=== PATIENT | female | born 1990 | race Caucasian/White ===

== ENCOUNTER 2022-02-13 22:44 | Inpatient (IN) | payer OTHER, MEDICAID, SELFPAY ==
[2022-02-13] VITALS (10 sets, daily range): BP systolic 87–98; BP diastolic 59–69; PULSE 106–120; RESP 23–36; O2SAT 79–100
--- NOTE | 2022-02-13 22:54 | DI.RAD.S_ITS ---
PROCEDURE: XR CHEST 1V INDICATIONS: unresponsive TECHNIQUE: One view of the chest was acquired. COMPARISON: None. FINDINGS: Surgical changes and devices: None. Lungs and pleura: Lungs are clear. No pleural effusions or pneumothorax. Mediastinum: Mediastinal contours appear normal. Heart size is normal. Bones and chest wall: No suspicious bony lesions. Overlying soft tissues appear unremarkable. IMPRESSION: 1. No acute cardiopulmonary disease. Dictated by: Romain Walton M.D. on 02/13/2022 at 23:57 Approved by: Romain Walton M.D. on 02/13/2022 at 23:57
--- NOTE | 2022-02-13 22:54 | DI.CT.S_ITS ---
PROCEDURE: CT HEAD/BRAIN WO CON INDICATIONS: unresponsive TECHNIQUE: Noncontrast 4.5 mm thick angled axial sections acquired from the foramen magnum to the vertex, with coronal and sagittal reformats. For radiation dose reduction, the following was used: automated exposure control, adjustment of mA and/or kV according to patient size. COMPARISON: None. FINDINGS: Image quality: Excellent. CSF spaces: Basal cisterns are patent. No extra-axial fluid collections. Ventricles are normal in size and shape. Brain: No intracranial hemorrhage, mass, or mass effect. Rodriguez-white matter interface appears preserved. Skull and face: Calvarium and visualized facial bones are intact, without suspicious lesions. Sinuses: Visualized sinuses and mastoids are clear. IMPRESSION: 1. No acute intracranial abnormality. Dictated by: Romain Walton M.D. on 02/13/2022 at 23:23 Approved by: Romain Walton M.D. on 02/13/2022 at 23:24
[2022-02-13 23:13] LABS: Ammonia (NH3) < 9 umol/L (9-30)
[2022-02-13] MEDS: SODIUM CHLORIDE 0.9% 1,000 ML 1000 ML IV (23:25)
[2022-02-13 23:27] LABS: Alanine Aminotransferase 21 IU/L (<35); Albumin 4.9 g/dL (3.5-5.0); Albumin Globulin Ratio 1.8 (1.0-2.8); Alkaline Phosphatase 125 U/L (38-126); Aspartate Aminotransferase 21 IU/L (14-36); Bilirubin Total 1.1 mg/dL (0.2-1.3); Calcium 9.4 mg/dL (8.4-10.2); Carbon Dioxide 19 mmol/L (22-32); Chloride 77 mmol/L (98-107); Creatine Kinase 247 U/L (30-135); Globulin 2.7 g/dL (1.7-4.1); Lipase 797 U/L (23-300); Potassium 2.8 mmol/L (3.4-5.1); Sodium 127 mmol/L (137-145); Total Protein 7.6 g/dL (6.3-8.2)
[2022-02-13 23:29] LABS: Add Manual Diff / Slide Review NO; Basophils Absolute Auto 0 /uL (0-100); Basophils Percent Auto 0.1 % (0-2); Eosinophils Absolute Auto 0 /uL (0-450); Eosinophils Percent Auto 0.1 % (2-4); Hemoglobin 17.3 g/dL (12.0-16.0); Lymphocytes Absolute Auto 700 /uL (1100-4500); Lymphocytes Percent Auto 3.7 % (25-40); Mean Corpuscular Hemoglobin 29.3 PG (26-34); Mean Corpuscular Volume 104.7 fL (80-100); Monocytes Absolute Auto 1200 /uL (0-900); Monocytes Percent Auto 6.6 % (3-14); Neutrophils Absolute Auto 16500 /uL (1500-7000); Neutrophils Percent Auto 89.5 % (50-75); Platelet Count 251 X10^3/uL (150-400); Red Blood Cell Count 5.89 X10^6/uL (4.0-5.2); Red Cell Distribution Width 15.2 % (11.6-14.8); White Blood Cell Count 18.4 X10^3/uL (4.5-11.0)
[2022-02-13 23:30] LABS: Ketones (Beta-Hydroxybutyrate) 7.83 mmol/L (<0.27)
[2022-02-13 23:33] LABS: BUN Creatinine Ratio 28.6 (6-22); Estimated Glomerular Filt Rate 14 mL/min (>60)
[2022-02-13 23:35] LABS: HEMOLYSIS 30 (0-50)
--- NOTE | 2022-02-13 23:36 | ED_ITS ---
HPI - General Adult <Dionne Rubio DO - Last Filed: 02/14/22 23:26> General Chief complaint: Diabetic Problem Stated complaint: Abd. Pain, lethargic Time Seen by Provider: 02/13/22 22:52 Source: patient Mode of arrival: EMS History of Present Illness HPI narrative: Patient is a 31-year-old female history of insulin-dependent diabetes diagnosed with diabetes in 2013 after some pancreatic issues. Was found with decreased responsiveness today. Mom states that she went patying 5 nights ago. Since then she has felt nauseous. The only thing she has been able to keep down are 12/03 slurpees. She has had a decline but was really not responsive today. EMS found her to be hypotensive minimally responsive. POC glucose is greater than 500. Mom reports that she was throwing up and has gotten worse. Her mouth is noted to be quite red his but does not appear to be blood I see no tongue or injury. Read and mouth is actually from the [place] Related Data Home Medications Medication Instructions Recorded Confirmed No Known Home Medications 02/14/22 02/14/22 Allergies Allergy/AdvReac Type Severity Reaction Status Date / Time No Known Drug Allergies Allergy Verified 02/13/22 22:53 Review of Systems <Dionne Rubio DO - Last Filed: 02/14/22 23:26> Review of Systems ROS Unobtainable: Unobtainable due to medical condition Patient History <Dionne Rubio DO - Last Filed: 02/14/22 23:26> Social History household members: family Smoking Status: Never smoker alcohol intake: current Smoking Status: Never smoker alcohol intake frequency: holidays/special occasions only Substance Use Type: marijuana Exam <Dionne Rubio DO - Last Filed: 02/14/22 23:26> Initial Vital Signs Initial Vital Signs: Vital Signs Pulse Rate 120 H 02/13/22 22:49 Respiratory Rate 23 02/13/22 22:49 Pulse Oximetry 79 L 02/13/22 22:49 Gen.: Minimally responsive HEENT: Head is atraumatic mouth is covered with red like stuff does not appear to be blood no mouth injury Neck: Supple no JVD Lungs: Clear bilaterally Cardiac: Tachycardic regular Abdomen: Nontender Extremities: Moving all extremities no gross bony deformity Neurologic: + gag, moving all extremities not following commands <Kev Yost MD - Last Filed: 02/14/22 16:47> Initial Vital Signs Initial Vital Signs: Vital Signs Pulse Rate 120 H 02/13/22 22:49 Respiratory Rate 23 02/13/22 22:49 Pulse Oximetry 79 L 02/13/22 22:49 Procedures <Dionne Rubio DO - Last Filed: 02/14/22 23:26> Central Line Placement Right IJ: Patient Placed on Monitor/Pulse Ox: Yes Prep: mask, gown and gloves Central Line Prep: Chlorhexidine scrub and sterile drapes applied Local Anesthetic: lidocaine 1% Amount of anesthesia used (mL): 5 Ultrasound Used for Placement: Yes Post Procedure X-Ray: tip of catheter in good position and no pneumothorax seen Patient Tolerated Procedure: Well and No complications Additional Comments: Unsuccessful attempt at right IJ. It collapsed many times Right Femoral: Patient Placed on Monitor/Pulse Ox: Yes Prep: mask, gown and gloves Central Line Prep: Chlorhexidine scrub and sterile drapes applied Ultrasound Used for Placement: Yes Central Line Lumen Inserted: triple Post Procedure: sutured in place, good blood return, all ports aspirated, flushed, capped and sterile dressing applied Course <DO Neri Means Last Filed: 02/14/22 23:26> Orders Ordered: ED Orders 02/14/22 16:08 Basic Metabolic Panel Q4H Discontinued Medications Acetaminophen (Acetaminophen 325 Mg Tablet) 650 mg PO Q6HR PRN PRN Reason: Fever/Mild Pain (1-3) Sodium Chloride (Normal Saline 0.9%) 1,000 mls @ 1,000 mls/hr IV BOLUS ONE Stop: 02/13/22 23:51 Last Infusion: 02/14/22 02:04 Dose: 0 mls/hr Documented By: Admin: 02/13/22 23:25 Dose: 1,000 mls/hr Documented By: NR Potassium Chloride/Sodium Chloride (Ns With Kcl 20 Meq) 1,000 mls @ 150 mls/hr IV CONT OG Last Infusion: 02/14/22 02:12 Dose: 0 mls/hr Documented By: Admin: 02/14/22 00:38 Dose: 150 mls/hr Documented By: NR Insulin Human Regular 100 unit (/ Sodium Chloride) 100 mls @ 6 mls/hr IV TITRATE OG; Protocol Last Titration: 02/14/22 15:43 Dose: 9.7 ml/hr, 9.7 mls/hr Documented By: Co-signed By: CW Titration: 02/14/22 13:55 Dose: 0 mls/hr Documented By: Co-signed By: CW Titration: 02/14/22 13:30 Dose: 9.7 mls/hr Documented By: Co-signed By: CW Titration: 02/14/22 05:52 Dose: 0 mls/hr Documented By: JAMAR Co-signed By: ELLE Titration: 02/14/22 03:03 Dose: 6 mls/hr Documented By: ABIMBOLA Co-signed By: JAMAR Titration: 02/14/22 02:00 Dose: 6 mls/hr Documented By: ABIMBOLA Co-signed By: ARAMIS Admin: 02/14/22 00:35 Dose: 6 ml/hr, 6 mls/hr Documented By: ABIMBOLA Co-signed By: ARAMIS NOREPINEPHRINE BITARTRATE/D5W (Levophed) 4 mg in 250 mls @ 30 mls/hr IV TITRATE OG; Protocol Last Titration: 02/14/22 19:45 Dose: 20 mcg/min, 75 mls/hr Documented By: Admin: 02/14/22 18:00 Dose: 12 mcg/min, 45 mls/hr Documented By: Titration: 02/14/22 17:24 Dose: 12 mcg/min, 45 mls/hr Documented By: Titration: 02/14/22 17:16 Dose: 12 mcg/min, 45 mls/hr Documented By: Titration: 02/14/22 14:44 Dose: 10 mcg/min, 37.5 mls/hr Documented By: Titration: 02/14/22 13:34 Dose: 12 mcg/min, 45 mls/hr Documented By: Titration: 02/14/22 12:37 Dose: 10 mcg/min, 37.5 mls/hr Documented By: Admin: 02/14/22 10:59 Dose: 10 mcg/min, 37.5 mls/hr Documented By: JAnnetta Titration: 02/14/22 10:59 Dose: 10 mcg/min, 37.5 mls/hr Documented By: Titration: 02/14/22 08:15 Dose: 10 mcg/min, 37.5 mls/hr Documented By: GenovevaG Titration: 02/14/22 07:38 Dose: 8 mcg/min, 30 mls/hr Documented By: Titration: 02/14/22 07:20 Dose: 6 mcg/min, 22.5 mls/hr Documented By: Titration: 02/14/22 07:10 Dose: 4 mcg/min, 15 mls/hr Documented By: Titration: 02/14/22 06:01 Dose: 0 mcg/min, 0 mls/hr Documented By: Titration: 02/14/22 04:30 Dose: 4 mcg/min, 15 mls/hr Documented By: Admin: 02/14/22 01:45 Dose: 8 mcg/min, 30 mls/hr Documented By: NR POTASSIUM CHLORIDE IN WATER (Potassium Cl 10 Meq/100 Ml [place]) 10 meq in 100 mls @ 100 mls/hr IV Q1H OG Stop: 02/14/22 05:29 Last Infusion: 02/14/22 06:16 Dose: 0 mls/hr Documented By: Admin: 02/14/22 04:57 Dose: 100 mls/hr Documented By: DKMarysol Infusion: 02/14/22 04:52 Dose: 100 mls/hr Documented By: Admin: 02/14/22 03:52 Dose: 100 mls/hr Documented By: Infusion: 02/14/22 03:52 Dose: 100 mls/hr Documented By: Admin: 02/14/22 02:55 Dose: 100 mls/hr Documented By: Infusion: 02/14/22 02:52 Dose: 100 mls/hr Documented By: Admin: 02/14/22 01:52 Dose: 100 mls/hr Documented By: NR Sodium Chloride (Normal Saline 0.9%) 1,000 mls @ 150 mls/hr IV CONT OG Last Infusion: 02/14/22 09:28 Dose: 0 mls/hr Documented By: Admin: 02/14/22 02:09 Dose: 150 mls/hr Documented By: NR Lactated Ringer's (Lactated Ringers) 1,000 mls @ 200 mls/hr IV BOLUS ONE Stop: 02/14/22 06:59 Last Infusion: 02/14/22 07:14 Dose: 0 mls/hr Documented By: Admin: 02/14/22 02:05 Dose: 200 mls/hr Documented By: ABIMBOLA POTASSIUM CHLORIDE IN WATER (Potassium Cl 10 Meq/100 Ml [place]) 10 meq in 100 mls @ 100 mls/hr IV Q1H OG Stop: 02/14/22 10:14 Last Infusion: 02/14/22 10:57 Dose: 0 mls/hr Documented By: Admin: 02/14/22 09:54 Dose: 100 mls/hr Documented By: Infusion: 02/14/22 09:52 Dose: 0 mls/hr Documented By: Admin: 02/14/22 08:37 Dose: 100 mls/hr Documented By: Infusion: 02/14/22 08:35 Dose: 0 mls/hr Documented By: Admin: 02/14/22 07:18 Dose: 100 mls/hr Documented By: Infusion: 02/14/22 07:06 Dose: 100 mls/hr Documented By: Admin: 02/14/22 06:06 Dose: 100 mls/hr Documented By: JAMAR Lactated Ringer's (Lactated Ringers) 1,000 mls @ 200 mls/hr IV CONT OG Last Infusion: 02/14/22 12:28 Dose: 0 mls/hr Documented By: Admin: 02/14/22 07:15 Dose: 200 mls/hr Documented By: JAMAR Ceftriaxone Sodium 1,000 mg/ (Sodium Chloride) 100 mls @ 200 mls/hr IV Q24H OG Piperacillin Sod/Tazobactam (Sod 3.375 gm/ Sodium Chloride) 100 mls @ 25 mls/hr IV Q8H OG Last Infusion: 02/14/22 14:45 Dose: 0 mls/hr Documented By: Infusion: 02/14/22 12:38 Dose: 25 mls/hr Documented By: Admin: 02/14/22 10:26 Dose: 25 mls/hr Documented By: QUIRINO Lactated Ringer's (Lactated Ringers) 1,000 mls @ 1,000 mls/hr IV BOLUS ONE Stop: 02/14/22 11:39 Last Infusion: 02/14/22 12:37 Dose: 1,000 mls/hr Documented By: Admin: 02/14/22 11:30 Dose: 1,000 mls/hr Documented By: QUIRINO Lactated Ringer's (Lactated Ringers) 1,000 mls @ 1,000 mls/hr IV BOLUS ONE Stop: 02/14/22 14:06 Last Infusion: 02/14/22 14:46 Dose: 0 mls/hr Documented By: Admin: 02/14/22 13:53 Dose: 1,000 mls/hr Documented By: Lactated Ringer's (Lactated Ringers) 1,000 mls @ 1,000 mls/hr IV BOLUS ONE Stop: 02/14/22 14:10 Last Admin: 02/14/22 13:53 Dose: 1,000 mls/hr Documented By: INSULIN DRIP PREMIX (Myxredlin Drip Premix) 100 unit in 100 mls @ 6 mls/hr IV NOW ONE; Protocol Stop: 02/15/22 06:08 Last Titration: 02/14/22 15:42 Dose: 9.7 units/hr, 9.7 mls/hr Documented By: Co-signed By: ASHLY Titration: 02/14/22 13:32 Dose: 9.7 units/hr, 9.7 mls/hr Documented By: Co-signed By: MARY JO Admin: 02/14/22 13:31 Dose: 6 units/hr, 6 mls/hr Documented By: Co-signed By: MARY JO Cefepime HCl 2 gm/ Sodium (Chloride) 100 mls @ 200 mls/hr IV Q8H [facility] Last Infusion: 02/14/22 17:15 Dose: 0 mls/hr Documented By: Admin: 02/14/22 16:18 Dose: 200 mls/hr Documented By: Acyclovir 340 mg/ Dextrose 250 mls @ 250 mls/hr IV Q8H [facility] Last Admin: 02/14/22 17:22 Dose: Not Given Documented By: Dextrose (Dextrose 5% Water) 1,000 mls @ 150 mls/hr IV CONT [facility] Last Admin: 02/14/22 16:34 Dose: 150 mls/hr Documented By: dexmedeTOMIDine in 0.9 % NaCL (Precedex) 400 mcg in 100 mls @ 3.425 mls/hr IV TITRATE OG; Protocol Last Titration: 02/14/22 19:45 Dose: 0 mcg/kg/hr, 0 mls/hr Documented By: Admin: 02/14/22 18:52 Dose: 1 mcg/kg/hr, 17.123 mls/hr Documented By: Titration: 02/14/22 18:52 Dose: 1 mcg/kg/hr, 17.123 mls/hr Documented By: Titration: 02/14/22 18:44 Dose: 1 mcg/kg/hr, 17.123 mls/hr Documented By: Titration: 02/14/22 17:34 Dose: 0.5 mcg/kg/hr, 8.562 mls/hr Documented By: Titration: 02/14/22 17:21 Dose: 0.3 mcg/kg/hr, 5.137 mls/hr Documented By: Admin: 02/14/22 16:17 Dose: 0.2 mcg/kg/hr, 3.425 mls/hr Documented By: Lactated Ringer's (Lactated Ringers) 1,000 mls @ 1,000 mls/hr IV BOLUS ONE Stop: 02/14/22 20:06 Last Admin: 02/14/22 18:20 Dose: 1,000 mls/hr Documented By: Vasopressin 40 unit/ Sodium (Chloride) 102 mls @ 4.5 mls/hr IV CONT OG Last Admin: 02/14/22 19:44 Dose: Not Given Documented By: Ketamine HCl (Ketamine 500 Mg/5 Ml Inj) 140 mg IV NOW ONE Stop: 02/14/22 00:11 Last Admin: 02/14/22 00:44 Dose: 140 mg Documented By: NR Lorazepam (Lorazepam 2 Mg/Ml Inj) 2 mg IV NOW ONE Stop: 02/14/22 00:56 Last Admin: 02/14/22 01:59 Dose: 2 mg Documented By: NR Vancomycin HCl (Vancomycin Per Pharmacy) 1 request MISC NOW ONE Stop: 02/14/22 15:29 Last Admin: 02/14/22 17:49 Dose: Not Given Documented By: Vital Signs Vital signs: Vital Signs - 8 hr 02/14/22 08:50 02/14/22 08:50 02/14/22 08:55 Pulse Rate 135 H Respiratory Rate 44 H Blood Pressure 92/51 L 93/52 L Pulse Oximetry 95 Oxygen Delivery Method 02/14/22 08:55 02/14/22 09:00 02/14/22 09:01 Pulse Rate 137 H 135 H Respiratory Rate 47 H 43 H Blood Pressure 93/59 L Pulse Oximetry 96 97 Oxygen Delivery Method 02/14/22 09:01 02/14/22 09:05 02/14/22 09:05 Pulse Rate 137 H 137 H Respiratory Rate 41 H 47 H Blood Pressure 93/58 L Pulse Oximetry 97 99 Oxygen Delivery Method 02/14/22 09:10 02/14/22 09:10 02/14/22 09:15 Pulse Rate 133 H Respiratory Rate 45 H Blood Pressure 89/57 L 91/59 L Pulse Oximetry 98 Oxygen Delivery Method 02/14/22 09:15 02/14/22 09:20 02/14/22 09:20 Pulse Rate 137 H 136 H Respiratory Rate 38 H 45 H Blood Pressure 93/61 Pulse Oximetry 97 97 Oxygen Delivery Method Room Air 02/14/22 09:25 02/14/22 09:25 02/14/22 09:30 Pulse Rate 135 H Respiratory Rate 47 H Blood Pressure 92/57 L 96/60 Pulse Oximetry 97 Oxygen Delivery Method 02/14/22 09:30 02/14/22 09:35 02/14/22 09:35 Pulse Rate 135 H 135 H Respiratory Rate 44 H 45 H Blood Pressure 93/55 L Pulse Oximetry 97 97 Oxygen Delivery Method 02/14/22 09:40 02/14/22 09:40 02/14/22 09:45 Pulse Rate 137 H Respiratory Rate 49 H Blood Pressure 94/59 L 95/61 Pulse Oximetry 97 Oxygen Delivery Method 02/14/22 09:45 02/14/22 09:50 02/14/22 09:50 Pulse Rate 136 H 138 H Respiratory Rate 45 H 43 H Blood Pressure 89/55 L Pulse Oximetry 97 97 Oxygen Delivery Method 02/14/22 09:55 02/14/22 09:55 02/14/22 10:00 Pulse Rate 135 H Respiratory Rate 45 H Blood Pressure 92/50 L 98/52 L Pulse Oximetry 96 Oxygen Delivery Method 02/14/22 10:00 02/14/22 10:05 02/14/22 10:05 Pulse Rate 135 H 135 H Respiratory Rate 44 H 45 H Blood Pressure 97/50 L Pulse Oximetry 96 97 Oxygen Delivery Method Room Air 02/14/22 10:10 02/14/22 10:10 02/14/22 10:15 Pulse Rate 138 H Respiratory Rate 49 H Blood Pressure 103/58 L 96/58 L Pulse Oximetry 97 Oxygen Delivery Method Room Air 02/14/22 10:15 02/14/22 10:20 02/14/22 10:20 Pulse Rate 135 H 135 H Respiratory Rate 46 H 46 H Blood Pressure 93/55 L Pulse Oximetry 97 98 Oxygen Delivery Method 02/14/22 10:25 02/14/22 10:25 02/14/22 10:30 Pulse Rate 137 H Respiratory Rate 46 H Blood Pressure 89/56 L 92/53 L Pulse Oximetry 100 Oxygen Delivery Method 02/14/22 10:30 02/14/22 10:35 02/14/22 10:35 Pulse Rate 140 H 137 H Respiratory Rate 38 H 45 H Blood Pressure 94/52 L Pulse Oximetry 96 99 Oxygen Delivery Method 02/14/22 10:40 02/14/22 10:40 02/14/22 10:45 Pulse Rate 138 H Respiratory Rate 43 H Blood Pressure 96/55 L 99/60 Pulse Oximetry 97 Oxygen Delivery Method 02/14/22 10:45 02/14/22 10:50 02/14/22 10:50 Pulse Rate 136 H 136 H Respiratory Rate 46 H 46 H Blood Pressure 98/61 Pulse Oximetry 97 95 Oxygen Delivery Method 02/14/22 10:55 02/14/22 10:55 02/14/22 11:00 Pulse Rate 135 H Respiratory Rate 43 H Blood Pressure 98/63 98/60 Pulse Oximetry 96 Oxygen Delivery Method 02/14/22 11:00 02/14/22 11:05 02/14/22 11:05 Pulse Rate 135 H 137 H Respiratory Rate 40 H 49 H Blood Pressure 101/61 Pulse Oximetry 95 95 Oxygen Delivery Method Room Air 02/14/22 11:10 02/14/22 11:10 02/14/22 11:15 Pulse Rate 135 H 136 H Respiratory Rate 46 H 42 H Blood Pressure 95/59 L Pulse Oximetry 96 96 Oxygen Delivery Method 02/14/22 11:16 02/14/22 11:16 02/14/22 11:20 Pulse Rate 136 H Respiratory Rate 45 H Blood Pressure 93/54 L 96/57 L Pulse Oximetry 95 Oxygen Delivery Method 02/14/22 11:20 02/14/22 11:25 02/14/22 11:25 Pulse Rate 134 H 137 H Respiratory Rate 45 H 44 H Blood Pressure 105/62 Pulse Oximetry 96 100 Oxygen Delivery Method 02/14/22 11:30 02/14/22 11:30 02/14/22 11:35 Pulse Rate 139 H Respiratory Rate 47 H Blood Pressure 102/59 L 97/55 L Pulse Oximetry 95 Oxygen Delivery Method 02/14/22 11:35 02/14/22 11:40 02/14/22 11:40 Pulse Rate 137 H 136 H Respiratory Rate 45 H 45 H Blood Pressure 91/55 L Pulse Oximetry 97 97 Oxygen Delivery Method 02/14/22 11:46 02/14/22 11:49 02/14/22 11:49 Pulse Rate 138 H 133 H Respiratory Rate 46 H Blood Pressure 97/57 L Pulse Oximetry 97 Oxygen Delivery Method 02/14/22 11:50 02/14/22 11:55 02/14/22 12:00 Pulse Rate 136 H 135 H 136 H Respiratory Rate 43 H 43 H 45 H Blood Pressure Pulse Oximetry 96 96 95 Oxygen Delivery Method 02/14/22 12:05 02/14/22 12:10 Pulse Rate 137 H 135 H Respiratory Rate 47 H 27 H Blood Pressure Pulse Oximetry 96 96 Oxygen Delivery Method <Kev Yost MD - Last Filed: 02/14/22 16:47> Course Course Narrative: February 14, 2022 at 7:00 a.m.. Sign out from Dr Rubio, patient hypotensive DKA, at this time has been off and on insulin drip and off and on with vasopressors. Lactated Ringer's bolus is being given for DKA protocol. At this time no beds available. No ICU beds here available. Hospitalist here has been contacted to help for medical management Decision to Admit Date: 02/14/22 Decision to Admit time: 12:01 Orders Ordered: ED Orders 02/14/22 16:08 Basic Metabolic Panel Q4H Discontinued Medications Acetaminophen (Acetaminophen 325 Mg Tablet) 650 mg PO Q6HR PRN PRN Reason: Fever/Mild Pain (1-3) Sodium Chloride (Normal Saline 0.9%) 1,000 mls @ 1,000 mls/hr IV BOLUS ONE Stop: 02/13/22 23:51 Last Infusion: 02/14/22 02:04 Dose: 0 mls/hr Documented By: Admin: 02/13/22 23:25 Dose: 1,000 mls/hr Documented By: NR Potassium Chloride/Sodium Chloride (Ns With Kcl 20 Meq) 1,000 mls @ 150 mls/hr IV CONT OG Last Infusion: 02/14/22 02:12 Dose: 0 mls/hr Documented By: Admin: 02/14/22 00:38 Dose: 150 mls/hr Documented By: NR Insulin Human Regular 100 unit (/ Sodium Chloride) 100 mls @ 6 mls/hr IV TITRATE OG; Protocol Last Titration: 02/14/22 15:43 Dose: 9.7 ml/hr, 9.7 mls/hr Documented By: Co-signed By: CW Titration: 02/14/22 13:55 Dose: 0 mls/hr Documented By: Co-signed By: CW Titration: 02/14/22 13:30 Dose: 9.7 mls/hr Documented By: Co-signed By: CW Titration: 02/14/22 05:52 Dose: 0 mls/hr Documented By: JAMAR Co-signed By: ELLE Titration: 02/14/22 03:03 Dose: 6 mls/hr Documented By: NR Co-signed By: JAMAR Titration: 02/14/22 02:00 Dose: 6 mls/hr Documented By: ABIMBOLA Co-signed By: ARAMIS Admin: 02/14/22 00:35 Dose: 6 ml/hr, 6 mls/hr Documented By: ABIMBOLA Co-signed By: ARAMIS NOREPINEPHRINE BITARTRATE/D5W (Levophed) 4 mg in 250 mls @ 30 mls/hr IV TITRATE OG; Protocol Last Titration: 02/14/22 19:45 Dose: 20 mcg/min, 75 mls/hr Documented By: Admin: 02/14/22 18:00 Dose: 12 mcg/min, 45 mls/hr Documented By: Titration: 02/14/22 17:24 Dose: 12 mcg/min, 45 mls/hr Documented By: Titration: 02/14/22 17:16 Dose: 12 mcg/min, 45 mls/hr Documented By: Titration: 02/14/22 14:44 Dose: 10 mcg/min, 37.5 mls/hr Documented By: Titration: 02/14/22 13:34 Dose: 12 mcg/min, 45 mls/hr Documented By: Titration: 02/14/22 12:37 Dose: 10 mcg/min, 37.5 mls/hr Documented By: Admin: 02/14/22 10:59 Dose: 10 mcg/min, 37.5 mls/hr Documented By: Titration: 02/14/22 10:59 Dose: 10 mcg/min, 37.5 mls/hr Documented By: Titration: 02/14/22 08:15 Dose: 10 mcg/min, 37.5 mls/hr Documented By: Titration: 02/14/22 07:38 Dose: 8 mcg/min, 30 mls/hr Documented By: Titration: 02/14/22 07:20 Dose: 6 mcg/min, 22.5 mls/hr Documented By: Titration: 02/14/22 07:10 Dose: 4 mcg/min, 15 mls/hr Documented By: Titration: 02/14/22 06:01 Dose: 0 mcg/min, 0 mls/hr Documented By: Titration: 02/14/22 04:30 Dose: 4 mcg/min, 15 mls/hr Documented By: Admin: 02/14/22 01:45 Dose: 8 mcg/min, 30 mls/hr Documented By: NR POTASSIUM CHLORIDE IN WATER (Potassium Cl 10 Meq/100 Ml [place]) 10 meq in 100 mls @ 100 mls/hr IV Q1H OG Stop: 02/14/22 05:29 Last Infusion: 02/14/22 06:16 Dose: 0 mls/hr Documented By: Admin: 02/14/22 04:57 Dose: 100 mls/hr Documented By: DKMarysol Infusion: 02/14/22 04:52 Dose: 100 mls/hr Documented By: DKMarysol Admin: 02/14/22 03:52 Dose: 100 mls/hr Documented By: DKMarysol Infusion: 02/14/22 03:52 Dose: 100 mls/hr Documented By: Admin: 02/14/22 02:55 Dose: 100 mls/hr Documented By: Infusion: 02/14/22 02:52 Dose: 100 mls/hr Documented By: Admin: 02/14/22 01:52 Dose: 100 mls/hr Documented By: ABIMBOLA Sodium Chloride (Normal Saline 0.9%) 1,000 mls @ 150 mls/hr IV CONT OG Last Infusion: 02/14/22 09:28 Dose: 0 mls/hr Documented By: Admin: 02/14/22 02:09 Dose: 150 mls/hr Documented By: ABIMBOLA Lactated Ringer's (Lactated Ringers) 1,000 mls @ 200 mls/hr IV BOLUS ONE Stop: 02/14/22 06:59 Last Infusion: 02/14/22 07:14 Dose: 0 mls/hr Documented By: Admin: 02/14/22 02:05 Dose: 200 mls/hr Documented By: ABIMBOLA POTASSIUM CHLORIDE IN WATER (Potassium Cl 10 Meq/100 Ml [place]) 10 meq in 100 mls @ 100 mls/hr IV Q1H OG Stop: 02/14/22 10:14 Last Infusion: 02/14/22 10:57 Dose: 0 mls/hr Documented By: Admin: 02/14/22 09:54 Dose: 100 mls/hr Documented By: Infusion: 02/14/22 09:52 Dose: 0 mls/hr Documented By: Admin: 02/14/22 08:37 Dose: 100 mls/hr Documented By: Infusion: 02/14/22 08:35 Dose: 0 mls/hr Documented By: Admin: 02/14/22 07:18 Dose: 100 mls/hr Documented By: Infusion: 02/14/22 07:06 Dose: 100 mls/hr Documented By: Admin: 02/14/22 06:06 Dose: 100 mls/hr Documented By: JAMAR Lactated Ringer's (Lactated Ringers) 1,000 mls @ 200 mls/hr IV CONT OG Last Infusion: 02/14/22 12:28 Dose: 0 mls/hr Documented By: Admin: 02/14/22 07:15 Dose: 200 mls/hr Documented By: JAMAR Ceftriaxone Sodium 1,000 mg/ (Sodium Chloride) 100 mls @ 200 mls/hr IV Q24H OG Piperacillin Sod/Tazobactam (Sod 3.375 gm/ Sodium Chloride) 100 mls @ 25 mls/hr IV Q8H OG Last Infusion: 02/14/22 14:45 Dose: 0 mls/hr Documented By: Infusion: 02/14/22 12:38 Dose: 25 mls/hr Documented By: Admin: 02/14/22 10:26 Dose: 25 mls/hr Documented By: QUIRINO Lactated Ringer's (Lactated Ringers) 1,000 mls @ 1,000 mls/hr IV BOLUS ONE Stop: 02/14/22 11:39 Last Infusion: 02/14/22 12:37 Dose: 1,000 mls/hr Documented By: Admin: 02/14/22 11:30 Dose: 1,000 mls/hr Documented By: QUIRINO Lactated Ringer's (Lactated Ringers) 1,000 mls @ 1,000 mls/hr IV BOLUS ONE Stop: 02/14/22 14:06 Last Infusion: 02/14/22 14:46 Dose: 0 mls/hr Documented By: Admin: 02/14/22 13:53 Dose: 1,000 mls/hr Documented By: Lactated Ringer's (Lactated Ringers) 1,000 mls @ 1,000 mls/hr IV BOLUS ONE Stop: 02/14/22 14:10 Last Admin: 02/14/22 13:53 Dose: 1,000 mls/hr Documented By: INSULIN DRIP PREMIX (Myxredlin Drip Premix) 100 unit in 100 mls @ 6 mls/hr IV NOW ONE; Protocol Stop: 02/15/22 06:08 Last Titration: 02/14/22 15:42 Dose: 9.7 units/hr, 9.7 mls/hr Documented By: Co-signed By: ASHLY Titration: 02/14/22 13:32 Dose: 9.7 units/hr, 9.7 mls/hr Documented By: Co-signed By: MARY JO Admin: 02/14/22 13:31 Dose: 6 units/hr, 6 mls/hr Documented By: Co-signed By: MARY JO Cefepime HCl 2 gm/ Sodium (Chloride) 100 mls @ 200 mls/hr IV Q8H OG Last Infusion: 02/14/22 17:15 Dose: 0 mls/hr Documented By: Admin: 02/14/22 16:18 Dose: 200 mls/hr Documented By: MS Acyclovir 340 mg/ Dextrose 250 mls @ 250 mls/hr IV Q8H OG Last Admin: 02/14/22 17:22 Dose: Not Given Documented By: MS Dextrose (Dextrose 5% Water) 1,000 mls @ 150 mls/hr IV CONT OG Last Admin: 02/14/22 16:34 Dose: 150 mls/hr Documented By: MS dexmedeTOMIDine in 0.9 % NaCL (Precedex) 400 mcg in 100 mls @ 3.425 mls/hr IV TITRATE OG; Protocol Last Titration: 02/14/22 19:45 Dose: 0 mcg/kg/hr, 0 mls/hr Documented By: Admin: 02/14/22 18:52 Dose: 1 mcg/kg/hr, 17.123 mls/hr Documented By: Titration: 02/14/22 18:52 Dose: 1 mcg/kg/hr, 17.123 mls/hr Documented By: Titration: 02/14/22 18:44 Dose: 1 mcg/kg/hr, 17.123 mls/hr Documented By: Titration: 02/14/22 17:34 Dose: 0.5 mcg/kg/hr, 8.562 mls/hr Documented By: Titration: 02/14/22 17:21 Dose: 0.3 mcg/kg/hr, 5.137 mls/hr Documented By: Admin: 02/14/22 16:17 Dose: 0.2 mcg/kg/hr, 3.425 mls/hr Documented By: MS Lactated Ringer's (Lactated Ringers) 1,000 mls @ 1,000 mls/hr IV BOLUS ONE Stop: 02/14/22 20:06 Last Admin: 02/14/22 18:20 Dose: 1,000 mls/hr Documented By: MS Vasopressin 40 unit/ Sodium (Chloride) 102 mls @ 4.5 mls/hr IV CONT OG Last Admin: 02/14/22 19:44 Dose: Not Given Documented By: MS Ketamine HCl (Ketamine 500 Mg/5 Ml Inj) 140 mg IV NOW ONE Stop: 02/14/22 00:11 Last Admin: 02/14/22 00:44 Dose: 140 mg Documented By: ABIMBOLA Lorazepam (Lorazepam 2 Mg/Ml Inj) 2 mg IV NOW ONE Stop: 02/14/22 00:56 Last Admin: 02/14/22 01:59 Dose: 2 mg Documented By: ABIMBOLA Vancomycin HCl (Vancomycin Per Pharmacy) 1 request MISC NOW ONE Stop: 02/14/22 15:29 Last Admin: 02/14/22 17:49 Dose: Not Given Documented By: Reevaluation(s) Reevaluation #1: Patient remains on vasopressors and insulin drip and IV hydration. Consultations Consultation #1: Spoke with Dr. Alvarado, hospitalist, will admit to ICU here Time: 12:01 Vital Signs Vital signs: Vital Signs - 8 hr 02/14/22 08:50 02/14/22 08:50 02/14/22 08:55 Pulse Rate 135 H Respiratory Rate 44 H Blood Pressure 92/51 L 93/52 L Pulse Oximetry 95 Oxygen Delivery Method 02/14/22 08:55 02/14/22 09:00 02/14/22 09:01 Pulse Rate 137 H 135 H Respiratory Rate 47 H 43 H Blood Pressure 93/59 L Pulse Oximetry 96 97 Oxygen Delivery Method 02/14/22 09:01 02/14/22 09:05 02/14/22 09:05 Pulse Rate 137 H 137 H Respiratory Rate 41 H 47 H Blood Pressure 93/58 L Pulse Oximetry 97 99 Oxygen Delivery Method 02/14/22 09:10 02/14/22 09:10 02/14/22 09:15 Pulse Rate 133 H Respiratory Rate 45 H Blood Pressure 89/57 L 91/59 L Pulse Oximetry 98 Oxygen Delivery Method 02/14/22 09:15 02/14/22 09:20 02/14/22 09:20 Pulse Rate 137 H 136 H Respiratory Rate 38 H 45 H Blood Pressure 93/61 Pulse Oximetry 97 97 Oxygen Delivery Method Room Air 02/14/22 09:25 02/14/22 09:25 02/14/22 09:30 Pulse Rate 135 H Respiratory Rate 47 H Blood Pressure 92/57 L 96/60 Pulse Oximetry 97 Oxygen Delivery Method 02/14/22 09:30 02/14/22 09:35 02/14/22 09:35 Pulse Rate 135 H 135 H Respiratory Rate 44 H 45 H Blood Pressure 93/55 L Pulse Oximetry 97 97 Oxygen Delivery Method 02/14/22 09:40 02/14/22 09:40 02/14/22 09:45 Pulse Rate 137 H Respiratory Rate 49 H Blood Pressure 94/59 L 95/61 Pulse Oximetry 97 Oxygen Delivery Method 02/14/22 09:45 02/14/22 09:50 02/14/22 09:50 Pulse Rate 136 H 138 H Respiratory Rate 45 H 43 H Blood Pressure 89/55 L Pulse Oximetry 97 97 Oxygen Delivery Method 02/14/22 09:55 02/14/22 09:55 02/14/22 10:00 Pulse Rate 135 H Respiratory Rate 45 H Blood Pressure 92/50 L 98/52 L Pulse Oximetry 96 Oxygen Delivery Method 02/14/22 10:00 02/14/22 10:05 02/14/22 10:05 Pulse Rate 135 H 135 H Respiratory Rate 44 H 45 H Blood Pressure 97/50 L Pulse Oximetry 96 97 Oxygen Delivery Method Room Air 02/14/22 10:10 02/14/22 10:10 02/14/22 10:15 Pulse Rate 138 H Respiratory Rate 49 H Blood Pressure 103/58 L 96/58 L Pulse Oximetry 97 Oxygen Delivery Method Room Air 02/14/22 10:15 02/14/22 10:20 02/14/22 10:20 Pulse Rate 135 H 135 H Respiratory Rate 46 H 46 H Blood Pressure 93/55 L Pulse Oximetry 97 98 Oxygen Delivery Method 02/14/22 10:25 02/14/22 10:25 02/14/22 10:30 Pulse Rate 137 H Respiratory Rate 46 H Blood Pressure 89/56 L 92/53 L Pulse Oximetry 100 Oxygen Delivery Method 02/14/22 10:30 02/14/22 10:35 02/14/22 10:35 Pulse Rate 140 H 137 H Respiratory Rate 38 H 45 H Blood Pressure 94/52 L Pulse Oximetry 96 99 Oxygen Delivery Method 02/14/22 10:40 02/14/22 10:40 02/14/22 10:45 Pulse Rate 138 H Respiratory Rate 43 H Blood Pressure 96/55 L 99/60 Pulse Oximetry 97 Oxygen Delivery Method 02/14/22 10:45 02/14/22 10:50 02/14/22 10:50 Pulse Rate 136 H 136 H Respiratory Rate 46 H 46 H Blood Pressure 98/61 Pulse Oximetry 97 95 Oxygen Delivery Method 02/14/22 10:55 02/14/22 10:55 02/14/22 11:00 Pulse Rate 135 H Respiratory Rate 43 H Blood Pressure 98/63 98/60 Pulse Oximetry 96 Oxygen Delivery Method 02/14/22 11:00 02/14/22 11:05 02/14/22 11:05 Pulse Rate 135 H 137 H Respiratory Rate 40 H 49 H Blood Pressure 101/61 Pulse Oximetry 95 95 Oxygen Delivery Method Room Air 02/14/22 11:10 02/14/22 11:10 02/14/22 11:15 Pulse Rate 135 H 136 H Respiratory Rate 46 H 42 H Blood Pressure 95/59 L Pulse Oximetry 96 96 Oxygen Delivery Method 02/14/22 11:16 02/14/22 11:16 02/14/22 11:20 Pulse Rate 136 H Respiratory Rate 45 H Blood Pressure 93/54 L 96/57 L Pulse Oximetry 95 Oxygen Delivery Method 02/14/22 11:20 02/14/22 11:25 02/14/22 11:25 Pulse Rate 134 H 137 H Respiratory Rate 45 H 44 H Blood Pressure 105/62 Pulse Oximetry 96 100 Oxygen Delivery Method 02/14/22 11:30 02/14/22 11:30 02/14/22 11:35 Pulse Rate 139 H Respiratory Rate 47 H Blood Pressure 102/59 L 97/55 L Pulse Oximetry 95 Oxygen Delivery Method 02/14/22 11:35 02/14/22 11:40 02/14/22 11:40 Pulse Rate 137 H 136 H Respiratory Rate 45 H 45 H Blood Pressure 91/55 L Pulse Oximetry 97 97 Oxygen Delivery Method 02/14/22 11:46 02/14/22 11:49 02/14/22 11:49 Pulse Rate 138 H 133 H Respiratory Rate 46 H Blood Pressure 97/57 L Pulse Oximetry 97 Oxygen Delivery Method 02/14/22 11:50 02/14/22 11:55 02/14/22 12:00 Pulse Rate 136 H 135 H 136 H Respiratory Rate 43 H 43 H 45 H Blood Pressure Pulse Oximetry 96 96 95 Oxygen Delivery Method 02/14/22 12:05 02/14/22 12:10 Pulse Rate 137 H 135 H Respiratory Rate 47 H 27 H Blood Pressure Pulse Oximetry 96 96 Oxygen Delivery Method Medical Decision Making <Dionne Ramiro, DO - Last Filed: 02/14/22 23:26> Lab Data Result diagrams: 02/14/22 11:35 02/14/22 16:08 Labs: Lab Results 02/13/22 02/13/22 02/13/22 Range/Units 22:47 22:47 22:47 WBC 18.4 H (4.5-11.0) X10^3/uL RBC 5.89 H (4.0-5.2) X10^6/uL Hgb 17.3 H (12.0-16.0) g/dL Hct 61.7 H* (36-46) % MCV 104.7 H (80-100) fL MCH 29.3 (26-34) PG MCHC 28.0 L (30-36) % RDW 15.2 H (11.6-14.8) % Plt Count 251 (150-400) X10^3/uL Neut % (Auto) 89.5 H (50-75) % Lymph % (Auto) 3.7 L (25-40) % [place] % (Auto) 6.6 (3-14) % Eos % (Auto) 0.1 L (2-4) % Baso % (Auto) 0.1 (0-2) % Neut # (Auto) 45571 H (6841-0111) /uL Lymph # (Auto) 700 L (5864-1835) /uL [place] # (Auto) 1200 H (0-900) /uL Eos # (Auto) 0 (0-450) /uL Baso # (Auto) 0 (0-100) /uL Total Counted Seg Neutrophils % (38-70) % Band Neutrophils % (3-7) % Lymphocytes % (Manual) (25-45) % Atypical Lymphs % ( - 0) % Monocytes % (Manual) (2-11) % Metamyelocytes % (-0) % Neutrophils # (Manual) (7614-0823) /uL RBC Morphology VBG pH (7.33-7.43) VBG pCO2 (45-50) mmHg VBG pO2 (35-45) mmHg VBG HCO3 (23-28) mmol/L VBG Total CO2 (24-29) mmol/L VBG O2 Saturation (70-75) % VBG Base Excess (0-4) mmol/L Sodium 127 L (137-145) mmol/L Potassium 2.8 L (3.4-5.1) mmol/L Chloride 77 L (98-107) mmol/L Carbon Dioxide 19 L (22-32) mmol/L BUN 116 H* (7-17) mg/dL Creatinine 4.05 H (0.52-1.04) mg/dL Estimated GFR 14 L (>60) mL/min BUN/Creatinine Ratio 28.6 H (6-22) Glucose 2188 H* (70-100) mg/dL Hemoglobin A1c (4.0-6.0) % Lactate (0.7-2.1) mmol/L Calcium 9.4 (8.4-10.2) mg/dL Magnesium (1.6-2.3) mg/dL Total Bilirubin 1.1 (0.2-1.3) mg/dL AST 21 (14-36) IU/L ALT 21 (<35) IU/L Alkaline Phosphatase 125 (38-126) U/L Ammonia < 9 L (9-30) umol/L Total Creatine Kinase 247 H (30-135) U/L CK-MB (CK-2) 1.60 (<2.37) ng/mL CK-MB (CK-2) Rel Index 0.6 L (1.5-5.0) % Troponin I 0.034 (0.01-0.034) ng/mL Total Protein 7.6 (6.3-8.2) g/dL Albumin 4.9 (3.5-5.0) g/dL Globulin 2.7 (1.7-4.1) g/dL Albumin/Globulin Ratio 1.8 (1.0-2.8) Triglycerides (35-150) mg/dL Lipase 797 H (23-300) U/L TSH (0.47-4.68) uIU/mL HCG, Quant mIU/mL Urine Color Urine Appearance Urine pH (4.5-8.0) Ur Specific [place] (1.000-1.035) Urine Protein (Negative) Urine Glucose (UA) (Negative) g/dL Urine Ketones (NEGATIVE) Urine Occult Blood (Negative) Urine Nitrate (Negative) Urine Bilirubin (NEGATIVE) Urine Urobilinogen (0.2) E.U./dL Ur Leukocyte Esterase (NEGATIVE) Urine RBC (0-5/HPF) Urine WBC (0-5/HPF) Ur Squamous Epith Cells (0-5/HPF) Urine Bacteria (None) Ur Culture Indicated? U Opiates 300ng/mL cut (Negative) Ur Oxycodone Screen (Negative) Urine Methadone Screen (Negative) Ur Barbiturates Screen (Negative) U Tricyclic Antidepress (Negative) Ur Phencyclidine Scrn (Negative) Ur Amphetamines Screen (Negative) U Methamphetamines Scrn (Negative) Ur MDMA Scrn (Ecstasy) (Negative) U Benzodiazepines Scrn (Negative) Urine Cocaine Screen (Negative) U Marijuana (THC) Screen (Negative) Ethyl Alcohol < 10 ( - 10) mg/dL Ketones 7.83 H (<0.27) mmol/L SARS-CoV-2 (PCR) (Negative) 02/13/22 02/13/22 02/13/22 Range/Units 22:47 22:53 23:23 WBC (4.5-11.0) X10^3/uL RBC (4.0-5.2) X10^6/uL Hgb (12.0-16.0) g/dL Hct (36-46) % MCV (80-100) fL MCH (26-34) PG MCHC (30-36) % RDW (11.6-14.8) % Plt Count (150-400) X10^3/uL Neut % (Auto) (50-75) % Lymph % (Auto) (25-40) % [place] % (Auto) (3-14) % Eos % (Auto) (2-4) % Baso % (Auto) (0-2) % Neut # (Auto) (1557-5294) /uL Lymph # (Auto) (3752-3023) /uL [place] # (Auto) (0-900) /uL Eos # (Auto) (0-450) /uL Baso # (Auto) (0-100) /uL Total Counted Seg Neutrophils % (38-70) % Band Neutrophils % (3-7) % Lymphocytes % (Manual) (25-45) % Atypical Lymphs % ( - 0) % Monocytes % (Manual) (2-11) % Metamyelocytes % (-0) % Neutrophils # (Manual) (9886-0220) /uL RBC Morphology VBG pH 7.19 L* (7.33-7.43) VBG pCO2 60.5 H (45-50) mmHg VBG pO2 39 (35-45) mmHg VBG HCO3 23 (23-28) mmol/L VBG Total CO2 25 (24-29) mmol/L VBG O2 Saturation 60 L (70-75) % VBG Base Excess -5.0 L (0-4) mmol/L Sodium (137-145) mmol/L Potassium (3.4-5.1) mmol/L Chloride (98-107) mmol/L Carbon Dioxide (22-32) mmol/L BUN (7-17) mg/dL Creatinine (0.52-1.04) mg/dL Estimated GFR (>60) mL/min BUN/Creatinine Ratio (6-22) Glucose (70-100) mg/dL Hemoglobin A1c (4.0-6.0) % Lactate (0.7-2.1) mmol/L Calcium (8.4-10.2) mg/dL Magnesium (1.6-2.3) mg/dL Total Bilirubin (0.2-1.3) mg/dL AST (14-36) IU/L ALT (<35) IU/L Alkaline Phosphatase (38-126) U/L Ammonia (9-30) umol/L Total Creatine Kinase (30-135) U/L CK-MB (CK-2) (<2.37) ng/mL CK-MB (CK-2) Rel Index (1.5-5.0) % Troponin I (0.01-0.034) ng/mL Total Protein (6.3-8.2) g/dL Albumin (3.5-5.0) g/dL Globulin (1.7-4.1) g/dL Albumin/Globulin Ratio (1.0-2.8) Triglycerides (35-150) mg/dL Lipase (23-300) U/L TSH (0.47-4.68) uIU/mL HCG, Quant < 2.4 mIU/mL Urine Color Urine Appearance Urine pH (4.5-8.0) Ur Specific [place] (1.000-1.035) Urine Protein (Negative) Urine Glucose (UA) (Negative) g/dL Urine Ketones (NEGATIVE) Urine Occult Blood (Negative) Urine Nitrate (Negative) Urine Bilirubin (NEGATIVE) Urine Urobilinogen (0.2) E.U./dL Ur Leukocyte Esterase (NEGATIVE) Urine RBC (0-5/HPF) Urine WBC (0-5/HPF) Ur Squamous Epith Cells (0-5/HPF) Urine Bacteria (None) Ur Culture Indicated? U Opiates 300ng/mL cut Negative (Negative) Ur Oxycodone Screen Positive H (Negative) Urine Methadone Screen Negative (Negative) Ur Barbiturates Screen Negative (Negative) U Tricyclic Antidepress Negative (Negative) Ur Phencyclidine Scrn Negative (Negative) Ur Amphetamines Screen Negative (Negative) U Methamphetamines Scrn Negative (Negative) Ur MDMA Scrn (Ecstasy) Negative (Negative) U Benzodiazepines Scrn Negative (Negative) Urine Cocaine Screen Negative (Negative) U Marijuana (THC) Screen Negative (Negative) Ethyl Alcohol ( - 10) mg/dL Ketones (<0.27) mmol/L SARS-CoV-2 (PCR) (Negative) 02/13/22 02/13/22 02/13/22 Range/Units 23:31 23:54 23:54 WBC (4.5-11.0) X10^3/uL RBC (4.0-5.2) X10^6/uL Hgb (12.0-16.0) g/dL Hct (36-46) % MCV (80-100) fL MCH (26-34) PG MCHC (30-36) % RDW (11.6-14.8) % Plt Count (150-400) X10^3/uL Neut % (Auto) (50-75) % Lymph % (Auto) (25-40) % [place] % (Auto) (3-14) % Eos % (Auto) (2-4) % Baso % (Auto) (0-2) % Neut # (Auto) (1488-8489) /uL Lymph # (Auto) (2732-8697) /uL [place] # (Auto) (0-900) /uL Eos # (Auto) (0-450) /uL Baso # (Auto) (0-100) /uL Total Counted Seg Neutrophils % (38-70) % Band Neutrophils % (3-7) % Lymphocytes % (Manual) (25-45) % Atypical Lymphs % ( - 0) % Monocytes % (Manual) (2-11) % Metamyelocytes % (-0) % Neutrophils # (Manual) (4061-3165) /uL RBC Morphology VBG pH (7.33-7.43) VBG pCO2 (45-50) mmHg VBG pO2 (35-45) mmHg VBG HCO3 (23-28) mmol/L VBG Total CO2 (24-29) mmol/L VBG O2 Saturation (70-75) % VBG Base Excess (0-4) mmol/L Sodium 131 L (137-145) mmol/L Potassium 2.8 L (3.4-5.1) mmol/L Chloride 89 L (98-107) mmol/L Carbon Dioxide 16 L (22-32) mmol/L BUN 110 H* (7-17) mg/dL Creatinine 3.75 H (0.52-1.04) mg/dL Estimated GFR 16 L (>60) mL/min BUN/Creatinine Ratio 29.3 H (6-22) Glucose 2082 H* (70-100) mg/dL Hemoglobin A1c (4.0-6.0) % Lactate 1.4 (0.7-2.1) mmol/L Calcium 8.2 L (8.4-10.2) mg/dL Magnesium (1.6-2.3) mg/dL Total Bilirubin (0.2-1.3) mg/dL AST (14-36) IU/L ALT (<35) IU/L Alkaline Phosphatase (38-126) U/L Ammonia (9-30) umol/L Total Creatine Kinase (30-135) U/L CK-MB (CK-2) (<2.37) ng/mL CK-MB (CK-2) Rel Index (1.5-5.0) % Troponin I (0.01-0.034) ng/mL Total Protein (6.3-8.2) g/dL Albumin (3.5-5.0) g/dL Globulin (1.7-4.1) g/dL Albumin/Globulin Ratio (1.0-2.8) Triglycerides (35-150) mg/dL Lipase (23-300) U/L TSH 0.53 (0.47-4.68) uIU/mL HCG, Quant mIU/mL Urine Color Urine Appearance Urine pH (4.5-8.0) Ur Specific [place] (1.000-1.035) Urine Protein (Negative) Urine Glucose (UA) (Negative) g/dL Urine Ketones (NEGATIVE) Urine Occult Blood (Negative) Urine Nitrate (Negative) Urine Bilirubin (NEGATIVE) Urine Urobilinogen (0.2) E.U./dL Ur Leukocyte Esterase (NEGATIVE) Urine RBC (0-5/HPF) Urine WBC (0-5/HPF) Ur Squamous Epith Cells (0-5/HPF) Urine Bacteria (None) Ur Culture Indicated? U Opiates 300ng/mL cut (Negative) Ur Oxycodone Screen (Negative) Urine Methadone Screen (Negative) Ur Barbiturates Screen (Negative) U Tricyclic Antidepress (Negative) Ur Phencyclidine Scrn (Negative) Ur Amphetamines Screen (Negative) U Methamphetamines Scrn (Negative) Ur MDMA Scrn (Ecstasy) (Negative) U Benzodiazepines Scrn (Negative) Urine Cocaine Screen (Negative) U Marijuana (THC) Screen (Negative) Ethyl Alcohol ( - 10) mg/dL Ketones (<0.27) mmol/L SARS-CoV-2 (PCR) (Negative) 02/14/22 02/14/22 02/14/22 Range/Units 01:32 01:32 01:35 WBC (4.5-11.0) X10^3/uL RBC (4.0-5.2) X10^6/uL Hgb (12.0-16.0) g/dL Hct (36-46) % MCV (80-100) fL MCH (26-34) PG MCHC (30-36) % RDW (11.6-14.8) % Plt Count (150-400) X10^3/uL Neut % (Auto) (50-75) % Lymph % (Auto) (25-40) % [place] % (Auto) (3-14) % Eos % (Auto) (2-4) % Baso % (Auto) (0-2) % Neut # (Auto) (5692-9068) /uL Lymph # (Auto) (2406-4489) /uL [place] # (Auto) (0-900) /uL Eos # (Auto) (0-450) /uL Baso # (Auto) (0-100) /uL Total Counted Seg Neutrophils % (38-70) % Band Neutrophils % (3-7) % Lymphocytes % (Manual) (25-45) % Atypical Lymphs % ( - 0) % Monocytes % (Manual) (2-11) % Metamyelocytes % (-0) % Neutrophils # (Manual) (5500-1442) /uL RBC Morphology VBG pH 7.13 L* (7.33-7.43) VBG pCO2 54.6 H (45-50) mmHg VBG pO2 62 H (35-45) mmHg VBG HCO3 18 L (23-28) mmol/L VBG Total CO2 20 L (24-29) mmol/L VBG O2 Saturation 83 H (70-75) % VBG Base Excess -11.0 L (0-4) mmol/L Sodium 136 L (137-145) mmol/L Potassium 3.0 L (3.4-5.1) mmol/L Chloride 94 L (98-107) mmol/L Carbon Dioxide 17 L (22-32) mmol/L BUN 109 H* (7-17) mg/dL Creatinine 3.64 H (0.52-1.04) mg/dL Estimated GFR 16 L (>60) mL/min BUN/Creatinine Ratio 29.9 H (6-22) Glucose 1920 H* (70-100) mg/dL Hemoglobin A1c (4.0-6.0) % Lactate 1.3 (0.7-2.1) mmol/L Calcium 8.0 L (8.4-10.2) mg/dL Magnesium (1.6-2.3) mg/dL Total Bilirubin 0.7 (0.2-1.3) mg/dL AST 17 (14-36) IU/L ALT 18 (<35) IU/L Alkaline Phosphatase 97 (38-126) U/L Ammonia (9-30) umol/L Total Creatine Kinase (30-135) U/L CK-MB (CK-2) (<2.37) ng/mL CK-MB (CK-2) Rel Index (1.5-5.0) % Troponin I (0.01-0.034) ng/mL Total Protein 6.1 L (6.3-8.2) g/dL Albumin 3.9 (3.5-5.0) g/dL Globulin 2.2 (1.7-4.1) g/dL Albumin/Globulin Ratio 1.8 (1.0-2.8) Triglycerides (35-150) mg/dL Lipase (23-300) U/L TSH (0.47-4.68) uIU/mL HCG, Quant mIU/mL Urine Color Urine Appearance Urine pH (4.5-8.0) Ur Specific [place] (1.000-1.035) Urine Protein (Negative) Urine Glucose (UA) (Negative) g/dL Urine Ketones (NEGATIVE) Urine Occult Blood (Negative) Urine Nitrate (Negative) Urine Bilirubin (NEGATIVE) Urine Urobilinogen (0.2) E.U./dL Ur Leukocyte Esterase (NEGATIVE) Urine RBC (0-5/HPF) Urine WBC (0-5/HPF) Ur Squamous Epith Cells (0-5/HPF) Urine Bacteria (None) Ur Culture Indicated? U Opiates 300ng/mL cut (Negative) Ur Oxycodone Screen (Negative) Urine Methadone Screen (Negative) Ur Barbiturates Screen (Negative) U Tricyclic Antidepress (Negative) Ur Phencyclidine Scrn (Negative) Ur Amphetamines Screen (Negative) U Methamphetamines Scrn (Negative) Ur MDMA Scrn (Ecstasy) (Negative) U Benzodiazepines Scrn (Negative) Urine Cocaine Screen (Negative) U Marijuana (THC) Screen (Negative) Ethyl Alcohol ( - 10) mg/dL Ketones (<0.27) mmol/L SARS-CoV-2 (PCR) (Negative) 02/14/22 02/14/22 02/14/22 Range/Units 01:58 05:00 07:33 WBC 18.1 H (4.5-11.0) X10^3/uL RBC 5.51 H (4.0-5.2) X10^6/uL Hgb 15.6 (12.0-16.0) g/dL Hct 49.4 H (36-46) % MCV 89.6 D (80-100) fL MCH 28.3 (26-34) PG MCHC 31.6 D (30-36) % RDW 13.7 (11.6-14.8) % Plt Count 232 (150-400) X10^3/uL Neut % (Auto) Not Reportable (50-75) % Lymph % (Auto) Not Reportable (25-40) % [place] % (Auto) Not Reportable (3-14) % Eos % (Auto) Not Reportable (2-4) % Baso % (Auto) Not Reportable (0-2) % Neut # (Auto) (5627-5791) /uL Lymph # (Auto) Not Reportable (4698-5435) /uL [place] # (Auto) Not Reportable (0-900) /uL Eos # (Auto) (0-450) /uL Baso # (Auto) Not Reportable (0-100) /uL Total Counted 100 Seg Neutrophils % 75.0 H (38-70) % Band Neutrophils % 8.0 H (3-7) % Lymphocytes % (Manual) 9.0 L (25-45) % Atypical Lymphs % 1.0 H ( - 0) % Monocytes % (Manual) 6.0 (2-11) % Metamyelocytes % 1.0 H (-0) % Neutrophils # (Manual) 81837 H (8366-7438) /uL RBC Morphology Normal morphology VBG pH (7.33-7.43) VBG pCO2 (45-50) mmHg VBG pO2 (35-45) mmHg VBG HCO3 (23-28) mmol/L VBG Total CO2 (24-29) mmol/L VBG O2 Saturation (70-75) % VBG Base Excess (0-4) mmol/L Sodium 144 (137-145) mmol/L Potassium 2.8 L (3.4-5.1) mmol/L Chloride 103 (98-107) mmol/L Carbon Dioxide 20 L (22-32) mmol/L BUN 99 H (7-17) mg/dL Creatinine 2.97 H (0.52-1.04) mg/dL Estimated GFR 21 L (>60) mL/min BUN/Creatinine Ratio 33.3 H (6-22) Glucose 1456 H* (70-100) mg/dL Hemoglobin A1c (4.0-6.0) % Lactate (0.7-2.1) mmol/L Calcium 8.7 (8.4-10.2) mg/dL Magnesium (1.6-2.3) mg/dL Total Bilirubin (0.2-1.3) mg/dL AST (14-36) IU/L ALT (<35) IU/L Alkaline Phosphatase (38-126) U/L Ammonia (9-30) umol/L Total Creatine Kinase (30-135) U/L CK-MB (CK-2) (<2.37) ng/mL CK-MB (CK-2) Rel Index (1.5-5.0) % Troponin I (0.01-0.034) ng/mL Total Protein (6.3-8.2) g/dL Albumin (3.5-5.0) g/dL Globulin (1.7-4.1) g/dL Albumin/Globulin Ratio (1.0-2.8) Triglycerides (35-150) mg/dL Lipase (23-300) U/L TSH (0.47-4.68) uIU/mL HCG, Quant mIU/mL Urine Color Urine Appearance Urine pH (4.5-8.0) Ur Specific [place] (1.000-1.035) Urine Protein (Negative) Urine Glucose (UA) (Negative) g/dL Urine Ketones (NEGATIVE) Urine Occult Blood (Negative) Urine Nitrate (Negative) Urine Bilirubin (NEGATIVE) Urine Urobilinogen (0.2) E.U./dL Ur Leukocyte Esterase (NEGATIVE) Urine RBC (0-5/HPF) Urine WBC (0-5/HPF) Ur Squamous Epith Cells (0-5/HPF) Urine Bacteria (None) Ur Culture Indicated? U Opiates 300ng/mL cut (Negative) Ur Oxycodone Screen (Negative) Urine Methadone Screen (Negative) Ur Barbiturates Screen (Negative) U Tricyclic Antidepress (Negative) Ur Phencyclidine Scrn (Negative) Ur Amphetamines Screen (Negative) U Methamphetamines Scrn (Negative) Ur MDMA Scrn (Ecstasy) (Negative) U Benzodiazepines Scrn (Negative) Urine Cocaine Screen (Negative) U Marijuana (THC) Screen (Negative) Ethyl Alcohol ( - 10) mg/dL Ketones (<0.27) mmol/L SARS-CoV-2 (PCR) Negative (Negative) 02/14/22 02/14/22 02/14/22 Range/Units 07:33 07:33 07:33 WBC (4.5-11.0) X10^3/uL RBC (4.0-5.2) X10^6/uL Hgb (12.0-16.0) g/dL Hct (36-46) % MCV (80-100) fL MCH (26-34) PG MCHC (30-36) % RDW (11.6-14.8) % Plt Count (150-400) X10^3/uL Neut % (Auto) (50-75) % Lymph % (Auto) (25-40) % [place] % (Auto) (3-14) % Eos % (Auto) (2-4) % Baso % (Auto) (0-2) % Neut # (Auto) (6809-2118) /uL Lymph # (Auto) (9833-8735) /uL [place] # (Auto) (0-900) /uL Eos # (Auto) (0-450) /uL Baso # (Auto) (0-100) /uL Total Counted Seg Neutrophils % (38-70) % Band Neutrophils % (3-7) % Lymphocytes % (Manual) (25-45) % Atypical Lymphs % ( - 0) % Monocytes % (Manual) (2-11) % Metamyelocytes % (-0) % Neutrophils # (Manual) (2375-1891) /uL RBC Morphology VBG pH (7.33-7.43) VBG pCO2 (45-50) mmHg VBG pO2 (35-45) mmHg VBG HCO3 (23-28) mmol/L VBG Total CO2 (24-29) mmol/L VBG O2 Saturation (70-75) % VBG Base Excess (0-4) mmol/L Sodium 146 H (137-145) mmol/L Potassium 3.3 L (3.4-5.1) mmol/L Chloride 106 (98-107) mmol/L Carbon Dioxide 23 (22-32) mmol/L BUN 102 H (7-17) mg/dL Creatinine 2.83 H (0.52-1.04) mg/dL Estimated GFR 22 L (>60) mL/min BUN/Creatinine Ratio 36.0 H (6-22) Glucose 1200 H* (70-100) mg/dL Hemoglobin A1c 12.3 H (4.0-6.0) % Lactate (0.7-2.1) mmol/L Calcium 8.3 L (8.4-10.2) mg/dL Magnesium 4.0 H (1.6-2.3) mg/dL Total Bilirubin (0.2-1.3) mg/dL AST (14-36) IU/L ALT (<35) IU/L Alkaline Phosphatase (38-126) U/L Ammonia (9-30) umol/L Total Creatine Kinase (30-135) U/L CK-MB (CK-2) (<2.37) ng/mL CK-MB (CK-2) Rel Index (1.5-5.0) % Troponin I (0.01-0.034) ng/mL Total Protein (6.3-8.2) g/dL Albumin (3.5-5.0) g/dL Globulin (1.7-4.1) g/dL Albumin/Globulin Ratio (1.0-2.8) Triglycerides (35-150) mg/dL Lipase (23-300) U/L TSH (0.47-4.68) uIU/mL HCG, Quant mIU/mL Urine Color Urine Appearance Urine pH (4.5-8.0) Ur Specific [place] (1.000-1.035) Urine Protein (Negative) Urine Glucose (UA) (Negative) g/dL Urine Ketones (NEGATIVE) Urine Occult Blood (Negative) Urine Nitrate (Negative) Urine Bilirubin (NEGATIVE) Urine Urobilinogen (0.2) E.U./dL Ur Leukocyte Esterase (NEGATIVE) Urine RBC (0-5/HPF) Urine WBC (0-5/HPF) Ur Squamous Epith Cells (0-5/HPF) Urine Bacteria (None) Ur Culture Indicated? U Opiates 300ng/mL cut (Negative) Ur Oxycodone Screen (Negative) Urine Methadone Screen (Negative) Ur Barbiturates Screen (Negative) U Tricyclic Antidepress (Negative) Ur Phencyclidine Scrn (Negative) Ur Amphetamines Screen (Negative) U Methamphetamines Scrn (Negative) Ur MDMA Scrn (Ecstasy) (Negative) U Benzodiazepines Scrn (Negative) Urine Cocaine Screen (Negative) U Marijuana (THC) Screen (Negative) Ethyl Alcohol ( - 10) mg/dL Ketones (<0.27) mmol/L SARS-CoV-2 (PCR) (Negative) 02/14/22 02/14/22 02/14/22 Range/Units 08:51 11:35 11:35 WBC 19.8 H (4.5-11.0) X10^3/uL RBC 5.28 H (4.0-5.2) X10^6/uL Hgb 15.0 (12.0-16.0) g/dL Hct 46.5 H (36-46) % MCV 88.0 (80-100) fL MCH 28.5 (26-34) PG MCHC 32.3 (30-36) % RDW 13.6 (11.6-14.8) % Plt Count 257 (150-400) X10^3/uL Neut % (Auto) Not Reportable (50-75) % Lymph % (Auto) Not Reportable (25-40) % [place] % (Auto) Not Reportable (3-14) % Eos % (Auto) Not Reportable (2-4) % Baso % (Auto) Not Reportable (0-2) % Neut # (Auto) (4509-1914) /uL Lymph # (Auto) Not Reportable (3964-0846) /uL [place] # (Auto) Not Reportable (0-900) /uL Eos # (Auto) (0-450) /uL Baso # (Auto) Not Reportable (0-100) /uL Total Counted 100 Seg Neutrophils % 81.0 H (38-70) % Band Neutrophils % 9.0 H (3-7) % Lymphocytes % (Manual) 4.0 L (25-45) % Atypical Lymphs % ( - 0) % Monocytes % (Manual) 5.0 (2-11) % Metamyelocytes % 1.0 H (-0) % Neutrophils # (Manual) 24832 H (9527-1852) /uL RBC Morphology Normal morphology VBG pH (7.33-7.43) VBG pCO2 (45-50) mmHg VBG pO2 (35-45) mmHg VBG HCO3 (23-28) mmol/L VBG Total CO2 (24-29) mmol/L VBG O2 Saturation (70-75) % VBG Base Excess (0-4) mmol/L Sodium 145 (137-145) mmol/L Potassium 4.5 D (3.4-5.1) mmol/L Chloride 107 (98-107) mmol/L Carbon Dioxide 19 L (22-32) mmol/L BUN 95 H (7-17) mg/dL Creatinine 2.65 H (0.52-1.04) mg/dL Estimated GFR 24 L (>60) mL/min BUN/Creatinine Ratio 35.8 H (6-22) Glucose 1076 H* (70-100) mg/dL Hemoglobin A1c (4.0-6.0) % Lactate (0.7-2.1) mmol/L Calcium 8.3 L (8.4-10.2) mg/dL Magnesium (1.6-2.3) mg/dL Total Bilirubin (0.2-1.3) mg/dL AST (14-36) IU/L ALT (<35) IU/L Alkaline Phosphatase (38-126) U/L Ammonia (9-30) umol/L Total Creatine Kinase (30-135) U/L CK-MB (CK-2) (<2.37) ng/mL CK-MB (CK-2) Rel Index (1.5-5.0) % Troponin I (0.01-0.034) ng/mL Total Protein (6.3-8.2) g/dL Albumin (3.5-5.0) g/dL Globulin (1.7-4.1) g/dL Albumin/Globulin Ratio (1.0-2.8) Triglycerides (35-150) mg/dL Lipase (23-300) U/L TSH (0.47-4.68) uIU/mL HCG, Quant mIU/mL Urine Color Yellow Urine Appearance Clear Urine pH 5.5 (4.5-8.0) Ur Specific [place] <=1.005 (1.000-1.035) Urine Protein 2+ H (Negative) Urine Glucose (UA) 2+ H (Negative) g/dL Urine Ketones Trace H (NEGATIVE) Urine Occult Blood 2+ H (Negative) Urine Nitrate Negative (Negative) Urine Bilirubin Negative (NEGATIVE) Urine Urobilinogen 0.2 (0.2) E.U./dL Ur Leukocyte Esterase Negative (NEGATIVE) Urine RBC 5-10/hpf H (0-5/HPF) Urine WBC None seen (0-5/HPF) Ur Squamous Epith Cells 0-1 /hpf (0-5/HPF) Urine Bacteria None seen (None) Ur Culture Indicated? Cult not indicated U Opiates 300ng/mL cut (Negative) Ur Oxycodone Screen (Negative) Urine Methadone Screen (Negative) Ur Barbiturates Screen (Negative) U Tricyclic Antidepress (Negative) Ur Phencyclidine Scrn (Negative) Ur Amphetamines Screen (Negative) U Methamphetamines Scrn (Negative) Ur MDMA Scrn (Ecstasy) (Negative) U Benzodiazepines Scrn (Negative) Urine Cocaine Screen (Negative) U Marijuana (THC) Screen (Negative) Ethyl Alcohol ( - 10) mg/dL Ketones (<0.27) mmol/L SARS-CoV-2 (PCR) (Negative) 02/14/22 02/14/22 Range/Units 11:35 11:35 WBC (4.5-11.0) X10^3/uL RBC (4.0-5.2) X10^6/uL Hgb (12.0-16.0) g/dL Hct (36-46) % MCV (80-100) fL MCH (26-34) PG MCHC (30-36) % RDW (11.6-14.8) % Plt Count (150-400) X10^3/uL Neut % (Auto) (50-75) % Lymph % (Auto) (25-40) % [place] % (Auto) (3-14) % Eos % (Auto) (2-4) % Baso % (Auto) (0-2) % Neut # (Auto) (9807-3373) /uL Lymph # (Auto) (8288-7789) /uL [place] # (Auto) (0-900) /uL Eos # (Auto) (0-450) /uL Baso # (Auto) (0-100) /uL Total Counted Seg Neutrophils % (38-70) % Band Neutrophils % (3-7) % Lymphocytes % (Manual) (25-45) % Atypical Lymphs % ( - 0) % Monocytes % (Manual) (2-11) % Metamyelocytes % (-0) % Neutrophils # (Manual) (2601-8414) /uL RBC Morphology VBG pH (7.33-7.43) VBG pCO2 (45-50) mmHg VBG pO2 (35-45) mmHg VBG HCO3 (23-28) mmol/L VBG Total CO2 (24-29) mmol/L VBG O2 Saturation (70-75) % VBG Base Excess (0-4) mmol/L Sodium (137-145) mmol/L Potassium (3.4-5.1) mmol/L Chloride (98-107) mmol/L Carbon Dioxide (22-32) mmol/L BUN (7-17) mg/dL Creatinine (0.52-1.04) mg/dL Estimated GFR (>60) mL/min BUN/Creatinine Ratio (6-22) Glucose (70-100) mg/dL Hemoglobin A1c (4.0-6.0) % Lactate (0.7-2.1) mmol/L Calcium (8.4-10.2) mg/dL Magnesium (1.6-2.3) mg/dL Total Bilirubin (0.2-1.3) mg/dL AST (14-36) IU/L ALT (<35) IU/L Alkaline Phosphatase (38-126) U/L Ammonia (9-30) umol/L Total Creatine Kinase (30-135) U/L CK-MB (CK-2) (<2.37) ng/mL CK-MB (CK-2) Rel Index (1.5-5.0) % Troponin I (0.01-0.034) ng/mL Total Protein (6.3-8.2) g/dL Albumin (3.5-5.0) g/dL Globulin (1.7-4.1) g/dL Albumin/Globulin Ratio (1.0-2.8) Triglycerides 313 H (35-150) mg/dL Lipase 1285 H D (23-300) U/L TSH (0.47-4.68) uIU/mL HCG, Quant mIU/mL Urine Color Urine Appearance Urine pH (4.5-8.0) Ur Specific [place] (1.000-1.035) Urine Protein (Negative) Urine Glucose (UA) (Negative) g/dL Urine Ketones (NEGATIVE) Urine Occult Blood (Negative) Urine Nitrate (Negative) Urine Bilirubin (NEGATIVE) Urine Urobilinogen (0.2) E.U./dL Ur Leukocyte Esterase (NEGATIVE) Urine RBC (0-5/HPF) Urine WBC (0-5/HPF) Ur Squamous Epith Cells (0-5/HPF) Urine Bacteria (None) Ur Culture Indicated? U Opiates 300ng/mL cut (Negative) Ur Oxycodone Screen (Negative) Urine Methadone Screen (Negative) Ur Barbiturates Screen (Negative) U Tricyclic Antidepress (Negative) Ur Phencyclidine Scrn (Negative) Ur Amphetamines Screen (Negative) U Methamphetamines Scrn (Negative) Ur MDMA Scrn (Ecstasy) (Negative) U Benzodiazepines Scrn (Negative) Urine Cocaine Screen (Negative) U Marijuana (THC) Screen (Negative) Ethyl Alcohol ( - 10) mg/dL Ketones (<0.27) mmol/L SARS-CoV-2 (PCR) (Negative) Point of Care Testing Glucose POC 700 Point of care testing: Point of Care Testing Glucose POC [address] scan - head: Radiologist's Impression: nt: Nathan Garcia MR#: [id number] : 1990 Acct:[id number] Age/Sex: 31 / F Date of Service: 02/13/22 Loc: ED Accession Number: [id number] ?? Procedure: CT head/brain wo con Ordering Provider: Dionne Rubio D.O. PROCEDURE:? CT HEAD/BRAIN WO CON ? INDICATIONS:? unresponsive ? TECHNIQUE:? Noncontrast 4.5 mm thick angled axial sections acquired from the foramen magnum to the vertex, with coronal and sagittal reformats.? For radiation dose reduction, the following was used:? automated exposure control, adjustment of mA and/or kV according to patient size.? ? COMPARISON:? None. ? FINDINGS:? Image quality:? Excellent.? ? CSF spaces:? Basal cisterns are patent.? No extra-axial fluid collections.? Ventricles are normal in size and shape.? ? Brain:? No intracranial hemorrhage, mass, or mass effect.? Rodriguez-white matter interface appears preserved.? ? Skull and face:? Calvarium and visualized facial bones are intact, without suspicious lesions.? ? Sinuses:? Visualized sinuses and mastoids are clear.? ? IMPRESSION:? ? 1. No acute intracranial abnormality.? ? Dictated by: Romain Walton M.D. on 02/13/2022 at 23:23 ? ? Approved by: Romain Walton M.D. on 02/13/2022 at 23:24? Chest x-ray: Radiologist's Impression: t: Nathan Garcia MR#: [id number] : 1990 Acct:[id number] Age/Sex: 31 / F Date of Service: 02/13/22 Loc: ED Accession Number: [id number] ?? Procedure: XR chest 1V Ordering Provider: Dionne Rubio D.O. PROCEDURE:? XR CHEST 1V ? INDICATIONS:? unresponsive ? TECHNIQUE:? One view of the chest was acquired.? ? COMPARISON:? None. ? FINDINGS:? ? Surgical changes and devices:? None.? ? Lungs and pleura:? Lungs are clear.? No pleural effusions or pneumothorax.? ? Mediastinum:? Mediastinal contours appear normal.? Heart size is normal.? ? Bones and chest wall:? No suspicious bony lesions.? Overlying soft tissues appear unremarkable.? ? IMPRESSION:? ? 1.? No acute cardiopulmonary disease. ? ? ? Dictated by: Romain Walton M.D. on 02/13/2022 at 23:57 ? ? CXR #2: Radiologist's Impression: PROCEDURE:? XR CHEST 1V ? INDICATIONS:? post IJ attempt (fail) ? TECHNIQUE:? One view of the chest was acquired.? ? COMPARISON:? [facility], , XR CHEST 1V, 02/13/2022, 23:04. ? FINDINGS:? ? Surgical changes and devices:? None.? ? Lungs and pleura:? Lungs are clear.? No pleural effusions or pneumothorax.? ? Mediastinum:? Mediastinal contours appear normal.? Heart size is normal.? ? Bones and chest wall:? No suspicious bony lesions.? Overlying soft tissues appear unremarkable.? ? IMPRESSION:? ? 1. No evidence of pneumothorax. ? ? Dictated by: Romain Walton M.D. on 02/14/2022 at 1:51 ? ? ECG Data Interpretation: Sinus tachycardia rate 107 CA interval 152 QRS [address] change MDM Narrative Medical decision making narrative: Patient had initial venous is ABG have bedside found to have a pH is 7.1 and a glucose greater than 500. Initially thought to have DKA. However glucose came back at 2188 and was immediately repeated and still greater than 2000. Hyperosmolar hyperglycemia state. Patient is also found to have an anion gap of 26 and potassium of 2.8. IV fluids were immediately started which she had head CT which was negative. Patient does have a good gag reflex. After little bit of fluid patient started waking up more, in pulling at things. But she is not able to have a conversation or answer questions. Mom at bedside and is able to calm her. The patient blood pressure remains slightly low. She is in critical condition central line is placed. Difficulty getting an IJ due to significant dehydration and collapse. Femoral was placed. Dr. Avendaño ICU network desktop support specialist was contacted in regards to ongoing management. There is critical bed shortage and unlikely patient he will be transferred anywhere. There are no ICU beds currently at our hospital. States he recommends holding the insulin drip until potassium is above 3. He also rec ommends replacing the potassium and continue with IV hydration. He states patient is likely severely dehydrated 10-13 L dehydrated. Continue to do serial labs and monitor. Patient is becoming more tachycardic Levophed is weaned down. Blood work again is due shortly Patient blood pressure improves on Levophed. She is resting and continues to be responsive to palpation and voice, at this time no indication for intubation Signed out to Dr. Yost. <Kev Yost MD - Last Filed: 02/14/22 16:47> Differential Diagnosis Differential Diagnosis: DKA/noncompliance/sepsis Lab Data Labs: Lab Results 02/13/22 02/13/22 02/13/22 Range/Units 22:47 22:47 22:47 WBC 18.4 H (4.5-11.0) X10^3/uL RBC 5.89 H (4.0-5.2) X10^6/uL Hgb 17.3 H (12.0-16.0) g/dL Hct 61.7 H* (36-46) % MCV 104.7 H (80-100) fL MCH 29.3 (26-34) PG MCHC 28.0 L (30-36) % RDW 15.2 H (11.6-14.8) % Plt Count 251 (150-400) X10^3/uL Neut % (Auto) 89.5 H (50-75) % Lymph % (Auto) 3.7 L (25-40) % [place] % (Auto) 6.6 (3-14) % Eos % (Auto) 0.1 L (2-4) % Baso % (Auto) 0.1 (0-2) % Neut # (Auto) 72291 H (7897-0865) /uL Lymph # (Auto) 700 L (9786-0863) /uL [place] # (Auto) 1200 H (0-900) /uL Eos # (Auto) 0 (0-450) /uL Baso # (Auto) 0 (0-100) /uL Total Counted Seg Neutrophils % (38-70) % Band Neutrophils % (3-7) % Lymphocytes % (Manual) (25-45) % Atypical Lymphs % ( - 0) % Monocytes % (Manual) (2-11) % Metamyelocytes % (-0) % Neutrophils # (Manual) (8299-4788) /uL RBC Morphology VBG pH (7.33-7.43) VBG pCO2 (45-50) mmHg VBG pO2 (35-45) mmHg VBG HCO3 (23-28) mmol/L VBG Total CO2 (24-29) mmol/L VBG O2 Saturation (70-75) % VBG Base Excess (0-4) mmol/L Sodium 127 L (137-145) mmol/L Potassium 2.8 L (3.4-5.1) mmol/L Chloride 77 L (98-107) mmol/L Carbon Dioxide 19 L (22-32) mmol/L BUN 116 H* (7-17) mg/dL Creatinine 4.05 H (0.52-1.04) mg/dL Estimated GFR 14 L (>60) mL/min BUN/Creatinine Ratio 28.6 H (6-22) Glucose 2188 H* (70-100) mg/dL Hemoglobin A1c (4.0-6.0) % Lactate (0.7-2.1) mmol/L Calcium 9.4 (8.4-10.2) mg/dL Magnesium (1.6-2.3) mg/dL Total Bilirubin 1.1 (0.2-1.3) mg/dL AST 21 (14-36) IU/L ALT 21 (<35) IU/L Alkaline Phosphatase 125 (38-126) U/L Ammonia < 9 L (9-30) umol/L Total Creatine Kinase 247 H (30-135) U/L CK-MB (CK-2) 1.60 (<2.37) ng/mL CK-MB (CK-2) Rel Index 0.6 L (1.5-5.0) % Troponin I 0.034 (0.01-0.034) ng/mL Total Protein 7.6 (6.3-8.2) g/dL Albumin 4.9 (3.5-5.0) g/dL Globulin 2.7 (1.7-4.1) g/dL Albumin/Globulin Ratio 1.8 (1.0-2.8) Triglycerides (35-150) mg/dL Lipase 797 H (23-300) U/L TSH (0.47-4.68) uIU/mL HCG, Quant mIU/mL Urine Color Urine Appearance Urine pH (4.5-8.0) Ur Specific [place] (1.000-1.035) Urine Protein (Negative) Urine Glucose (UA) (Negative) g/dL Urine Ketones (NEGATIVE) Urine Occult Blood (Negative) Urine Nitrate (Negative) Urine Bilirubin (NEGATIVE) Urine Urobilinogen (0.2) E.U./dL Ur Leukocyte Esterase (NEGATIVE) Urine RBC (0-5/HPF) Urine WBC (0-5/HPF) Ur Squamous Epith Cells (0-5/HPF) Urine Bacteria (None) Ur Culture Indicated? U Opiates 300ng/mL cut (Negative) Ur Oxycodone Screen (Negative) Urine Methadone Screen (Negative) Ur Barbiturates Screen (Negative) U Tricyclic Antidepress (Negative) Ur Phencyclidine Scrn (Negative) Ur Amphetamines Screen (Negative) U Methamphetamines Scrn (Negative) Ur MDMA Scrn (Ecstasy) (Negative) U Benzodiazepines Scrn (Negative) Urine Cocaine Screen (Negative) U Marijuana (THC) Screen (Negative) Ethyl Alcohol < 10 ( - 10) mg/dL Ketones 7.83 H (<0.27) mmol/L SARS-CoV-2 (PCR) (Negative) 02/13/22 02/13/22 02/13/22 Range/Units 22:47 22:53 23:23 WBC (4.5-11.0) X10^3/uL RBC (4.0-5.2) X10^6/uL Hgb (12.0-16.0) g/dL Hct (36-46) % MCV (80-100) fL MCH (26-34) PG MCHC (30-36) % RDW (11.6-14.8) % Plt Count (150-400) X10^3/uL Neut % (Auto) (50-75) % Lymph % (Auto) (25-40) % [place] % (Auto) (3-14) % Eos % (Auto) (2-4) % Baso % (Auto) (0-2) % Neut # (Auto) (1376-8210) /uL Lymph # (Auto) (3050-0981) /uL [place] # (Auto) (0-900) /uL Eos # (Auto) (0-450) /uL Baso # (Auto) (0-100) /uL Total Counted Seg Neutrophils % (38-70) % Band Neutrophils % (3-7) % Lymphocytes % (Manual) (25-45) % Atypical Lymphs % ( - 0) % Monocytes % (Manual) (2-11) % Metamyelocytes % (-0) % Neutrophils # (Manual) (0185-3190) /uL RBC Morphology VBG pH 7.19 L* (7.33-7.43) VBG pCO2 60.5 H (45-50) mmHg VBG pO2 39 (35-45) mmHg VBG HCO3 23 (23-28) mmol/L VBG Total CO2 25 (24-29) mmol/L VBG O2 Saturation 60 L (70-75) % VBG Base Excess -5.0 L (0-4) mmol/L Sodium (137-145) mmol/L Potassium (3.4-5.1) mmol/L Chloride (98-107) mmol/L Carbon Dioxide (22-32) mmol/L BUN (7-17) mg/dL Creatinine (0.52-1.04) mg/dL Estimated GFR (>60) mL/min BUN/Creatinine Ratio (6-22) Glucose (70-100) mg/dL Hemoglobin A1c (4.0-6.0) % Lactate (0.7-2.1) mmol/L Calcium (8.4-10.2) mg/dL Magnesium (1.6-2.3) mg/dL Total Bilirubin (0.2-1.3) mg/dL AST (14-36) IU/L ALT (<35) IU/L Alkaline Phosphatase (38-126) U/L Ammonia (9-30) umol/L Total Creatine Kinase (30-135) U/L CK-MB (CK-2) (<2.37) ng/mL CK-MB (CK-2) Rel Index (1.5-5.0) % Troponin I (0.01-0.034) ng/mL Total Protein (6.3-8.2) g/dL Albumin (3.5-5.0) g/dL Globulin (1.7-4.1) g/dL Albumin/Globulin Ratio (1.0-2.8) Triglycerides (35-150) mg/dL Lipase (23-300) U/L TSH (0.47-4.68) uIU/mL HCG, Quant < 2.4 mIU/mL Urine Color Urine Appearance Urine pH (4.5-8.0) Ur Specific [place] (1.000-1.035) Urine Protein (Negative) Urine Glucose (UA) (Negative) g/dL Urine Ketones (NEGATIVE) Urine Occult Blood (Negative) Urine Nitrate (Negative) Urine Bilirubin (NEGATIVE) Urine Urobilinogen (0.2) E.U./dL Ur Leukocyte Esterase (NEGATIVE) Urine RBC (0-5/HPF) Urine WBC (0-5/HPF) Ur Squamous Epith Cells (0-5/HPF) Urine Bacteria (None) Ur Culture Indicated? U Opiates 300ng/mL cut Negative (Negative) Ur Oxycodone Screen Positive H (Negative) Urine Methadone Screen Negative (Negative) Ur Barbiturates Screen Negative (Negative) U Tricyclic Antidepress Negative (Negative) Ur Phencyclidine Scrn Negative (Negative) Ur Amphetamines Screen Negative (Negative) U Methamphetamines Scrn Negative (Negative) Ur MDMA Scrn (Ecstasy) Negative (Negative) U Benzodiazepines Scrn Negative (Negative) Urine Cocaine Screen Negative (Negative) U Marijuana (THC) Screen Negative (Negative) Ethyl Alcohol ( - 10) mg/dL Ketones (<0.27) mmol/L SARS-CoV-2 (PCR) (Negative) 02/13/22 02/13/22 02/13/22 Range/Units 23:31 23:54 23:54 WBC (4.5-11.0) X10^3/uL RBC (4.0-5.2) X10^6/uL Hgb (12.0-16.0) g/dL Hct (36-46) % MCV (80-100) fL MCH (26-34) PG MCHC (30-36) % RDW (11.6-14.8) % Plt Count (150-400) X10^3/uL Neut % (Auto) (50-75) % Lymph % (Auto) (25-40) % [place] % (Auto) (3-14) % Eos % (Auto) (2-4) % Baso % (Auto) (0-2) % Neut # (Auto) (9201-4904) /uL Lymph # (Auto) (8348-1271) /uL [place] # (Auto) (0-900) /uL Eos # (Auto) (0-450) /uL Baso # (Auto) (0-100) /uL Total Counted Seg Neutrophils % (38-70) % Band Neutrophils % (3-7) % Lymphocytes % (Manual) (25-45) % Atypical Lymphs % ( - 0) % Monocytes % (Manual) (2-11) % Metamyelocytes % (-0) % Neutrophils # (Manual) (1716-2537) /uL RBC Morphology VBG pH (7.33-7.43) VBG pCO2 (45-50) mmHg VBG pO2 (35-45) mmHg VBG HCO3 (23-28) mmol/L VBG Total CO2 (24-29) mmol/L VBG O2 Saturation (70-75) % VBG Base Excess (0-4) mmol/L Sodium 131 L (137-145) mmol/L Potassium 2.8 L (3.4-5.1) mmol/L Chloride 89 L (98-107) mmol/L Carbon Dioxide 16 L (22-32) mmol/L BUN 110 H* (7-17) mg/dL Creatinine 3.75 H (0.52-1.04) mg/dL Estimated GFR 16 L (>60) mL/min BUN/Creatinine Ratio 29.3 H (6-22) Glucose 2082 H* (70-100) mg/dL Hemoglobin A1c (4.0-6.0) % Lactate 1.4 (0.7-2.1) mmol/L Calcium 8.2 L (8.4-10.2) mg/dL Magnesium (1.6-2.3) mg/dL Total Bilirubin (0.2-1.3) mg/dL AST (14-36) IU/L ALT (<35) IU/L Alkaline Phosphatase (38-126) U/L Ammonia (9-30) umol/L Total Creatine Kinase (30-135) U/L CK-MB (CK-2) (<2.37) ng/mL CK-MB (CK-2) Rel Index (1.5-5.0) % Troponin I (0.01-0.034) ng/mL Total Protein (6.3-8.2) g/dL Albumin (3.5-5.0) g/dL Globulin (1.7-4.1) g/dL Albumin/Globulin Ratio (1.0-2.8) Triglycerides (35-150) mg/dL Lipase (23-300) U/L TSH 0.53 (0.47-4.68) uIU/mL HCG, Quant mIU/mL Urine Color Urine Appearance Urine pH (4.5-8.0) Ur Specific [place] (1.000-1.035) Urine Protein (Negative) Urine Glucose (UA) (Negative) g/dL Urine Ketones (NEGATIVE) Urine Occult Blood (Negative) Urine Nitrate (Negative) Urine Bilirubin (NEGATIVE) Urine Urobilinogen (0.2) E.U./dL Ur Leukocyte Esterase (NEGATIVE) Urine RBC (0-5/HPF) Urine WBC (0-5/HPF) Ur Squamous Epith Cells (0-5/HPF) Urine Bacteria (None) Ur Culture Indicated? U Opiates 300ng/mL cut (Negative) Ur Oxycodone Screen (Negative) Urine Methadone Screen (Negative) Ur Barbiturates Screen (Negative) U Tricyclic Antidepress (Negative) Ur Phencyclidine Scrn (Negative) Ur Amphetamines Screen (Negative) U Methamphetamines Scrn (Negative) Ur MDMA Scrn (Ecstasy) (Negative) U Benzodiazepines Scrn (Negative) Urine Cocaine Screen (Negative) U Marijuana (THC) Screen (Negative) Ethyl Alcohol ( - 10) mg/dL Ketones (<0.27) mmol/L SARS-CoV-2 (PCR) (Negative) 02/14/22 02/14/22 02/14/22 Range/Units 01:32 01:32 01:35 WBC (4.5-11.0) X10^3/uL RBC (4.0-5.2) X10^6/uL Hgb (12.0-16.0) g/dL Hct (36-46) % MCV (80-100) fL MCH (26-34) PG MCHC (30-36) % RDW (11.6-14.8) % Plt Count (150-400) X10^3/uL Neut % (Auto) (50-75) % Lymph % (Auto) (25-40) % [place] % (Auto) (3-14) % Eos % (Auto) (2-4) % Baso % (Auto) (0-2) % Neut # (Auto) (0762-2652) /uL Lymph # (Auto) (7360-1301) /uL [place] # (Auto) (0-900) /uL Eos # (Auto) (0-450) /uL Baso # (Auto) (0-100) /uL Total Counted Seg Neutrophils % (38-70) % Band Neutrophils % (3-7) % Lymphocytes % (Manual) (25-45) % Atypical Lymphs % ( - 0) % Monocytes % (Manual) (2-11) % Metamyelocytes % (-0) % Neutrophils # (Manual) (5735-9379) /uL RBC Morphology VBG pH 7.13 L* (7.33-7.43) VBG pCO2 54.6 H (45-50) mmHg VBG pO2 62 H (35-45) mmHg VBG HCO3 18 L (23-28) mmol/L VBG Total CO2 20 L (24-29) mmol/L VBG O2 Saturation 83 H (70-75) % VBG Base Excess -11.0 L (0-4) mmol/L Sodium 136 L (137-145) mmol/L Potassium 3.0 L (3.4-5.1) mmol/L Chloride 94 L (98-107) mmol/L Carbon Dioxide 17 L (22-32) mmol/L BUN 109 H* (7-17) mg/dL Creatinine 3.64 H (0.52-1.04) mg/dL Estimated GFR 16 L (>60) mL/min BUN/Creatinine Ratio 29.9 H (6-22) Glucose 1920 H* (70-100) mg/dL Hemoglobin A1c (4.0-6.0) % Lactate 1.3 (0.7-2.1) mmol/L Calcium 8.0 L (8.4-10.2) mg/dL Magnesium (1.6-2.3) mg/dL Total Bilirubin 0.7 (0.2-1.3) mg/dL AST 17 (14-36) IU/L ALT 18 (<35) IU/L Alkaline Phosphatase 97 (38-126) U/L Ammonia (9-30) umol/L Total Creatine Kinase (30-135) U/L CK-MB (CK-2) (<2.37) ng/mL CK-MB (CK-2) Rel Index (1.5-5.0) % Troponin I (0.01-0.034) ng/mL Total Protein 6.1 L (6.3-8.2) g/dL Albumin 3.9 (3.5-5.0) g/dL Globulin 2.2 (1.7-4.1) g/dL Albumin/Globulin Ratio 1.8 (1.0-2.8) Triglycerides (35-150) mg/dL Lipase (23-300) U/L TSH (0.47-4.68) uIU/mL HCG, Quant mIU/mL Urine Color Urine Appearance Urine pH (4.5-8.0) Ur Specific [place] (1.000-1.035) Urine Protein (Negative) Urine Glucose (UA) (Negative) g/dL Urine Ketones (NEGATIVE) Urine Occult Blood (Negative) Urine Nitrate (Negative) Urine Bilirubin (NEGATIVE) Urine Urobilinogen (0.2) E.U./dL Ur Leukocyte Esterase (NEGATIVE) Urine RBC (0-5/HPF) Urine WBC (0-5/HPF) Ur Squamous Epith Cells (0-5/HPF) Urine Bacteria (None) Ur Culture Indicated? U Opiates 300ng/mL cut (Negative) Ur Oxycodone Screen (Negative) Urine Methadone Screen (Negative) Ur Barbiturates Screen (Negative) U Tricyclic Antidepress (Negative) Ur Phencyclidine Scrn (Negative) Ur Amphetamines Screen (Negative) U Methamphetamines Scrn (Negative) Ur MDMA Scrn (Ecstasy) (Negative) U Benzodiazepines Scrn (Negative) Urine Cocaine Screen (Negative) U Marijuana (THC) Screen (Negative) Ethyl Alcohol ( - 10) mg/dL Ketones (<0.27) mmol/L SARS-CoV-2 (PCR) (Negative) 02/14/22 02/14/22 02/14/22 Range/Units 01:58 05:00 07:33 WBC 18.1 H (4.5-11.0) X10^3/uL RBC 5.51 H (4.0-5.2) X10^6/uL Hgb 15.6 (12.0-16.0) g/dL Hct 49.4 H (36-46) % MCV 89.6 D (80-100) fL MCH 28.3 (26-34) PG MCHC 31.6 D (30-36) % RDW 13.7 (11.6-14.8) % Plt Count 232 (150-400) X10^3/uL Neut % (Auto) Not Reportable (50-75) % Lymph % (Auto) Not Reportable (25-40) % [place] % (Auto) Not Reportable (3-14) % Eos % (Auto) Not Reportable (2-4) % Baso % (Auto) Not Reportable (0-2) % Neut # (Auto) (8947-1508) /uL Lymph # (Auto) Not Reportable (7104-6470) /uL [place] # (Auto) Not Reportable (0-900) /uL Eos # (Auto) (0-450) /uL Baso # (Auto) Not Reportable (0-100) /uL Total Counted 100 Seg Neutrophils % 75.0 H (38-70) % Band Neutrophils % 8.0 H (3-7) % Lymphocytes % (Manual) 9.0 L (25-45) % Atypical Lymphs % 1.0 H ( - 0) % Monocytes % (Manual) 6.0 (2-11) % Metamyelocytes % 1.0 H (-0) % Neutrophils # (Manual) 79869 H (5716-6980) /uL RBC Morphology Normal morphology VBG pH (7.33-7.43) VBG pCO2 (45-50) mmHg VBG pO2 (35-45) mmHg VBG HCO3 (23-28) mmol/L VBG Total CO2 (24-29) mmol/L VBG O2 Saturation (70-75) % VBG Base Excess (0-4) mmol/L Sodium 144 (137-145) mmol/L Potassium 2.8 L (3.4-5.1) mmol/L Chloride 103 (98-107) mmol/L Carbon Dioxide 20 L (22-32) mmol/L BUN 99 H (7-17) mg/dL Creatinine 2.97 H (0.52-1.04) mg/dL Estimated GFR 21 L (>60) mL/min BUN/Creatinine Ratio 33.3 H (6-22) Glucose 1456 H* (70-100) mg/dL Hemoglobin A1c (4.0-6.0) % Lactate (0.7-2.1) mmol/L Calcium 8.7 (8.4-10.2) mg/dL Magnesium (1.6-2.3) mg/dL Total Bilirubin (0.2-1.3) mg/dL AST (14-36) IU/L ALT (<35) IU/L Alkaline Phosphatase (38-126) U/L Ammonia (9-30) umol/L Total Creatine Kinase (30-135) U/L CK-MB (CK-2) (<2.37) ng/mL CK-MB (CK-2) Rel Index (1.5-5.0) % Troponin I (0.01-0.034) ng/mL Total Protein (6.3-8.2) g/dL Albumin (3.5-5.0) g/dL Globulin (1.7-4.1) g/dL Albumin/Globulin Ratio (1.0-2.8) Triglycerides (35-150) mg/dL Lipase (23-300) U/L TSH (0.47-4.68) uIU/mL HCG, Quant mIU/mL Urine Color Urine Appearance Urine pH (4.5-8.0) Ur Specific [place] (1.000-1.035) Urine Protein (Negative) Urine Glucose (UA) (Negative) g/dL Urine Ketones (NEGATIVE) Urine Occult Blood (Negative) Urine Nitrate (Negative) Urine Bilirubin (NEGATIVE) Urine Urobilinogen (0.2) E.U./dL Ur Leukocyte Esterase (NEGATIVE) Urine RBC (0-5/HPF) Urine WBC (0-5/HPF) Ur Squamous Epith Cells (0-5/HPF) Urine Bacteria (None) Ur Culture Indicated? U Opiates 300ng/mL cut (Negative) Ur Oxycodone Screen (Negative) Urine Methadone Screen (Negative) Ur Barbiturates Screen (Negative) U Tricyclic Antidepress (Negative) Ur Phencyclidine Scrn (Negative) Ur Amphetamines Screen (Negative) U Methamphetamines Scrn (Negative) Ur MDMA Scrn (Ecstasy) (Negative) U Benzodiazepines Scrn (Negative) Urine Cocaine Screen (Negative) U Marijuana (THC) Screen (Negative) Ethyl Alcohol ( - 10) mg/dL Ketones (<0.27) mmol/L SARS-CoV-2 (PCR) Negative (Negative) 02/14/22 02/14/22 02/14/22 Range/Units 07:33 07:33 07:33 WBC (4.5-11.0) X10^3/uL RBC (4.0-5.2) X10^6/uL Hgb (12.0-16.0) g/dL Hct (36-46) % MCV (80-100) fL MCH (26-34) PG MCHC (30-36) % RDW (11.6-14.8) % Plt Count (150-400) X10^3/uL Neut % (Auto) (50-75) % Lymph % (Auto) (25-40) % [place] % (Auto) (3-14) % Eos % (Auto) (2-4) % Baso % (Auto) (0-2) % Neut # (Auto) (9035-2797) /uL Lymph # (Auto) (8434-5408) /uL [place] # (Auto) (0-900) /uL Eos # (Auto) (0-450) /uL Baso # (Auto) (0-100) /uL Total Counted Seg Neutrophils % (38-70) % Band Neutrophils % (3-7) % Lymphocytes % (Manual) (25-45) % Atypical Lymphs % ( - 0) % Monocytes % (Manual) (2-11) % Metamyelocytes % (-0) % Neutrophils # (Manual) (8256-4969) /uL RBC Morphology VBG pH (7.33-7.43) VBG pCO2 (45-50) mmHg VBG pO2 (35-45) mmHg VBG HCO3 (23-28) mmol/L VBG Total CO2 (24-29) mmol/L VBG O2 Saturation (70-75) % VBG Base Excess (0-4) mmol/L Sodium 146 H (137-145) mmol/L Potassium 3.3 L (3.4-5.1) mmol/L Chloride 106 (98-107) mmol/L Carbon Dioxide 23 (22-32) mmol/L BUN 102 H (7-17) mg/dL Creatinine 2.83 H (0.52-1.04) mg/dL Estimated GFR 22 L (>60) mL/min BUN/Creatinine Ratio 36.0 H (6-22) Glucose 1200 H* (70-100) mg/dL Hemoglobin A1c 12.3 H (4.0-6.0) % Lactate (0.7-2.1) mmol/L Calcium 8.3 L (8.4-10.2) mg/dL Magnesium 4.0 H (1.6-2.3) mg/dL Total Bilirubin (0.2-1.3) mg/dL AST (14-36) IU/L ALT (<35) IU/L Alkaline Phosphatase (38-126) U/L Ammonia (9-30) umol/L Total Creatine Kinase (30-135) U/L CK-MB (CK-2) (<2.37) ng/mL CK-MB (CK-2) Rel Index (1.5-5.0) % Troponin I (0.01-0.034) ng/mL Total Protein (6.3-8.2) g/dL Albumin (3.5-5.0) g/dL Globulin (1.7-4.1) g/dL Albumin/Globulin Ratio (1.0-2.8) Triglycerides (35-150) mg/dL Lipase (23-300) U/L TSH (0.47-4.68) uIU/mL HCG, Quant mIU/mL Urine Color Urine Appearance Urine pH (4.5-8.0) Ur Specific [place] (1.000-1.035) Urine Protein (Negative) Urine Glucose (UA) (Negative) g/dL Urine Ketones (NEGATIVE) Urine Occult Blood (Negative) Urine Nitrate (Negative) Urine Bilirubin (NEGATIVE) Urine Urobilinogen (0.2) E.U./dL Ur Leukocyte Esterase (NEGATIVE) Urine RBC (0-5/HPF) Urine WBC (0-5/HPF) Ur Squamous Epith Cells (0-5/HPF) Urine Bacteria (None) Ur Culture Indicated? U Opiates 300ng/mL cut (Negative) Ur Oxycodone Screen (Negative) Urine Methadone Screen (Negative) Ur Barbiturates Screen (Negative) U Tricyclic Antidepress (Negative) Ur Phencyclidine Scrn (Negative) Ur Amphetamines Screen (Negative) U Methamphetamines Scrn (Negative) Ur MDMA Scrn (Ecstasy) (Negative) U Benzodiazepines Scrn (Negative) Urine Cocaine Screen (Negative) U Marijuana (THC) Screen (Negative) Ethyl Alcohol ( - 10) mg/dL Ketones (<0.27) mmol/L SARS-CoV-2 (PCR) (Negative) 02/14/22 02/14/22 02/14/22 Range/Units 08:51 11:35 11:35 WBC 19.8 H (4.5-11.0) X10^3/uL RBC 5.28 H (4.0-5.2) X10^6/uL Hgb 15.0 (12.0-16.0) g/dL Hct 46.5 H (36-46) % MCV 88.0 (80-100) fL MCH 28.5 (26-34) PG MCHC 32.3 (30-36) % RDW 13.6 (11.6-14.8) % Plt Count 257 (150-400) X10^3/uL Neut % (Auto) Not Reportable (50-75) % Lymph % (Auto) Not Reportable (25-40) % [place] % (Auto) Not Reportable (3-14) % Eos % (Auto) Not Reportable (2-4) % Baso % (Auto) Not Reportable (0-2) % Neut # (Auto) (9745-3324) /uL Lymph # (Auto) Not Reportable (0689-4639) /uL [place] # (Auto) Not Reportable (0-900) /uL Eos # (Auto) (0-450) /uL Baso # (Auto) Not Reportable (0-100) /uL Total Counted 100 Seg Neutrophils % 81.0 H (38-70) % Band Neutrophils % 9.0 H (3-7) % Lymphocytes % (Manual) 4.0 L (25-45) % Atypical Lymphs % ( - 0) % Monocytes % (Manual) 5.0 (2-11) % Metamyelocytes % 1.0 H (-0) % Neutrophils # (Manual) 20411 H (2983-4669) /uL RBC Morphology Normal morphology VBG pH (7.33-7.43) VBG pCO2 (45-50) mmHg VBG pO2 (35-45) mmHg VBG HCO3 (23-28) mmol/L VBG Total CO2 (24-29) mmol/L VBG O2 Saturation (70-75) % VBG Base Excess (0-4) mmol/L Sodium 145 (137-145) mmol/L Potassium 4.5 D (3.4-5.1) mmol/L Chloride 107 (98-107) mmol/L Carbon Dioxide 19 L (22-32) mmol/L BUN 95 H (7-17) mg/dL Creatinine 2.65 H (0.52-1.04) mg/dL Estimated GFR 24 L (>60) mL/min BUN/Creatinine Ratio 35.8 H (6-22) Glucose 1076 H* (70-100) mg/dL Hemoglobin A1c (4.0-6.0) % Lactate (0.7-2.1) mmol/L Calcium 8.3 L (8.4-10.2) mg/dL Magnesium (1.6-2.3) mg/dL Total Bilirubin (0.2-1.3) mg/dL AST (14-36) IU/L ALT (<35) IU/L Alkaline Phosphatase (38-126) U/L Ammonia (9-30) umol/L Total Creatine Kinase (30-135) U/L CK-MB (CK-2) (<2.37) ng/mL CK-MB (CK-2) Rel Index (1.5-5.0) % Troponin I (0.01-0.034) ng/mL Total Protein (6.3-8.2) g/dL Albumin (3.5-5.0) g/dL Globulin (1.7-4.1) g/dL Albumin/Globulin Ratio (1.0-2.8) Triglycerides (35-150) mg/dL Lipase (23-300) U/L TSH (0.47-4.68) uIU/mL HCG, Quant mIU/mL Urine Color Yellow Urine Appearance Clear Urine pH 5.5 (4.5-8.0) Ur Specific [place] <=1.005 (1.000-1.035) Urine Protein 2+ H (Negative) Urine Glucose (UA) 2+ H (Negative) g/dL Urine Ketones Trace H (NEGATIVE) Urine Occult Blood 2+ H (Negative) Urine Nitrate Negative (Negative) Urine Bilirubin Negative (NEGATIVE) Urine Urobilinogen 0.2 (0.2) E.U./dL Ur Leukocyte Esterase Negative (NEGATIVE) Urine RBC 5-10/hpf H (0-5/HPF) Urine WBC None seen (0-5/HPF) Ur Squamous Epith Cells 0-1 /hpf (0-5/HPF) Urine Bacteria None seen (None) Ur Culture Indicated? Cult not indicated U Opiates 300ng/mL cut (Negative) Ur Oxycodone Screen (Negative) Urine Methadone Screen (Negative) Ur Barbiturates Screen (Negative) U Tricyclic Antidepress (Negative) Ur Phencyclidine Scrn (Negative) Ur Amphetamines Screen (Negative) U Methamphetamines Scrn (Negative) Ur MDMA Scrn (Ecstasy) (Negative) U Benzodiazepines Scrn (Negative) Urine Cocaine Screen (Negative) U Marijuana (THC) Screen (Negative) Ethyl Alcohol ( - 10) mg/dL Ketones (<0.27) mmol/L SARS-CoV-2 (PCR) (Negative) 02/14/22 02/14/22 Range/Units 11:35 11:35 WBC (4.5-11.0) X10^3/uL RBC (4.0-5.2) X10^6/uL Hgb (12.0-16.0) g/dL Hct (36-46) % MCV (80-100) fL MCH (26-34) PG MCHC (30-36) % RDW (11.6-14.8) % Plt Count (150-400) X10^3/uL Neut % (Auto) (50-75) % Lymph % (Auto) (25-40) % [place] % (Auto) (3-14) % Eos % (Auto) (2-4) % Baso % (Auto) (0-2) % Neut # (Auto) (4265-6359) /uL Lymph # (Auto) (2026-8231) /uL [place] # (Auto) (0-900) /uL Eos # (Auto) (0-450) /uL Baso # (Auto) (0-100) /uL Total Counted Seg Neutrophils % (38-70) % Band Neutrophils % (3-7) % Lymphocytes % (Manual) (25-45) % Atypical Lymphs % ( - 0) % Monocytes % (Manual) (2-11) % Metamyelocytes % (-0) % Neutrophils # (Manual) (6688-7058) /uL RBC Morphology VBG pH (7.33-7.43) VBG pCO2 (45-50) mmHg VBG pO2 (35-45) mmHg VBG HCO3 (23-28) mmol/L VBG Total CO2 (24-29) mmol/L VBG O2 Saturation (70-75) % VBG Base Excess (0-4) mmol/L Sodium (137-145) mmol/L Potassium (3.4-5.1) mmol/L Chloride (98-107) mmol/L Carbon Dioxide (22-32) mmol/L BUN (7-17) mg/dL Creatinine (0.52-1.04) mg/dL Estimated GFR (>60) mL/min BUN/Creatinine Ratio (6-22) Glucose (70-100) mg/dL Hemoglobin A1c (4.0-6.0) % Lactate (0.7-2.1) mmol/L Calcium (8.4-10.2) mg/dL Magnesium (1.6-2.3) mg/dL Total Bilirubin (0.2-1.3) mg/dL AST (14-36) IU/L ALT (<35) IU/L Alkaline Phosphatase (38-126) U/L Ammonia (9-30) umol/L Total Creatine Kinase (30-135) U/L CK-MB (CK-2) (<2.37) ng/mL CK-MB (CK-2) Rel Index (1.5-5.0) % Troponin I (0.01-0.034) ng/mL Total Protein (6.3-8.2) g/dL Albumin (3.5-5.0) g/dL Globulin (1.7-4.1) g/dL Albumin/Globulin Ratio (1.0-2.8) Triglycerides 313 H (35-150) mg/dL Lipase 1285 H D (23-300) U/L TSH (0.47-4.68) uIU/mL HCG, Quant mIU/mL Urine Color Urine Appearance Urine pH (4.5-8.0) Ur Specific [place] (1.000-1.035) Urine Protein (Negative) Urine Glucose (UA) (Negative) g/dL Urine Ketones (NEGATIVE) Urine Occult Blood (Negative) Urine Nitrate (Negative) Urine Bilirubin (NEGATIVE) Urine Urobilinogen (0.2) E.U./dL Ur Leukocyte Esterase (NEGATIVE) Urine RBC (0-5/HPF) Urine WBC (0-5/HPF) Ur Squamous Epith Cells (0-5/HPF) Urine Bacteria (None) Ur Culture Indicated? U Opiates 300ng/mL cut (Negative) Ur Oxycodone Screen (Negative) Urine Methadone Screen (Negative) Ur Barbiturates Screen (Negative) U Tricyclic Antidepress (Negative) Ur Phencyclidine Scrn (Negative) Ur Amphetamines Screen (Negative) U Methamphetamines Scrn (Negative) Ur MDMA Scrn (Ecstasy) (Negative) U Benzodiazepines Scrn (Negative) Urine Cocaine Screen (Negative) U Marijuana (THC) Screen (Negative) Ethyl Alcohol ( - 10) mg/dL Ketones (<0.27) mmol/L SARS-CoV-2 (PCR) (Negative) Point of Care Testing Glucose POC 700 Point of care testing: Point of Care Testing Glucose POC 700 ECG Data Interpretation: Sinus tachycardia rate 107 CA interval 152 QRS [address] change Repeat EKG February 14, 2002 at 6:02 a.m., sinus tachycardia rate 132 Critical Care Time <Dionne Rubio DO - Last Filed: 02/14/22 23:26> Critical Care Time Critical Care Time: Yes Total Critical Care Time: 75 Attestation: Critical Care Time 75 minutes: Critical care time is separate from other billable procedures. This critical care time includes consultation with family and other consulting doctors, review of records, and interpretation of data from labs, EKGs, imaging, etc. <Kev Yost MD - Last Filed: 02/14/22 16:47> Critical Care Time Attestation: Critical Care Time 35 minutes: Critical care time is separate from other billable procedures. This critical care time includes consultation with family and other consulting doctors, review of records, and interpretation of data from labs, EKGs, imaging, etc. Discharge Plan Departure Patient Disposition: Admitted As Inpatient Clinical Impression: Diabetes mellitus with ketoacidosis, Hyperosmolar hyperglycemic state (HHS), Shock Admit Date/Time: 02/14/22 12:10 Admit Provider: Storm Alvarado
[2022-02-13 23:41] LABS: Troponin I 0.034 ng/mL (0.01-0.034)
[2022-02-13 23:42] LABS: Ethanol (ETOH) < 10 mg/dL
[2022-02-13 23:43] LABS: Blood Urea Nitrogen 116 mg/dL (7-17)
[2022-02-13 23:44] LABS: UR Morphine/Opiate cutoff 300 Negative (Negative); Ur Creatinine Normal (Normal); Ur Specific Gravity Normal (Normal); Urine Amphetamines Negative (Negative); Urine Barbiturates Negative (Negative); Urine Benzodiazepines Negative (Negative); Urine Cocaine Negative (Negative); Urine MDMA Negative (Negative); Urine Methadone Negative (Negative); Urine Methamphetamines Negative (Negative); Urine Oxycodone Positive (Negative); Urine Phencyclidine Negative (Negative); Urine Tetrahydrocannabinol Negative (Negative); Urine Tricyclic Antidepressant Negative (Negative); Urine pH Normal (Normal)
[2022-02-13 23:45] LABS: Hematocrit 61.7 % (36-46)
[2022-02-13 23:47] LABS: HCG Quantitative /Beta subunit < 2.4 mIU/mL
[2022-02-13 23:58] LABS: Glucose 2188 mg/dL (70-100)
[2022-02-14] VITALS (215 sets, daily range): BP systolic 76–124; BP diastolic 50–87; PULSE 104–140; RESP 10–49; TEMP 36.5–37.1; O2SAT 86–100; BMI 25.9
[2022-02-14] LABS: Lactate (Lactic Acid) 1.4 mmol/L (0.7-2.1)
--- NOTE | 2022-02-14 | DI.CT.S_ITS ---
PROCEDURE: CT ABDOMEN PELVIS WO CON INDICATIONS: abd pain TECHNIQUE: Noncontrast 5 mm thick sections acquired from the diaphragms to the symphysis. 5 mm coronal and sagittal reformats were then performed. For radiation dose reduction, the following was used: automated exposure control, adjustment of mA and/or kV according to patient size. COMPARISON: [facility], CR, XR CHEST 1V, 02/13/2022, 23:04. [facility], CR, XR CHEST 1V, 02/14/2022, 1:29. FINDINGS: Image quality: Limited by lack of IV and oral contrast. ABDOMEN: Lung bases: Lung bases are clear. Heart size is normal. Solid organs: Liver is normal in size. Gallbladder has been removed. Pancreas is normal in contours. Moderate inflammatory change can be seen involving the right upper quadrant, with generalized fatty stranding. Spleen is normal in size. No adrenal nodules. Kidneys are normal in size, without hydronephrosis or nephrolithiasis. Peritoneum and bowel: Unenhanced bowel loops demonstrate normal wall thickness and caliber. No free fluid or air. Nodes and vessels: No retroperitoneal or mesenteric adenopathy by size criteria. Aorta and inferior vena cava are normal in caliber. Miscellaneous: No ventral hernias. PELVIS: Genitourinary: A Mendoza catheter is seen, with the bladder partially decompressed. Gas can be seen within the bladder lumen. The uterus is unremarkable. There is a 3 cm right ovarian cyst seen, which is considered to be within physiologic limits. Miscellaneous: No inguinal hernias or adenopathy. There is a right groin venous catheter seen, with the tip seen along the superior aspect of the right common iliac vein. Bones: No suspicious bony lesions. No vertebral body compression fractures. IMPRESSION: Inflammatory change with generalized fatty stranding can be seen involving the right upper quadrant. This patient is status post cholecystectomy. Please correlate with recent cholecystectomy. Differential diagnosis also includes pancreatitis. No dilated loops of bowel are seen. Mendoza catheter seen, which partially decompresses the bladder. 3 cm right ovarian cyst noted, which is considered to be within physiologic limits. Right groin venous catheter noted. Dictated by: Yandel Neff M.D. on 02/14/2022 at 11:14 Approved by: Yandel Neff M.D. on 02/14/2022 at 11:18
[2022-02-14 00:04] LABS: CKMB % Relative Index 0.6 % (1.5-5.0)
[2022-02-14 00:19] LABS: Calcium 8.2 mg/dL (8.4-10.2); Carbon Dioxide 16 mmol/L (22-32); Chloride 89 mmol/L (98-107); Potassium 2.8 mmol/L (3.4-5.1); Sodium 131 mmol/L (137-145)
[2022-02-14 00:25] LABS: BUN Creatinine Ratio 29.3 (6-22); Estimated Glomerular Filt Rate 16 mL/min (>60)
[2022-02-14] MEDS: INSULIN REGULAR, HUMAN 100 UNIT in SODIUM CHLORIDE 0.9% 100 ML 6 UNIT IV (00:35)
[2022-02-14] MEDS: KCL 20 MEQ IN NS 1,000 ML 150 MEQ IV (00:38)
[2022-02-14 00:43] LABS: HEMOLYSIS 17 (0-50)
[2022-02-14] MEDS: KETAMINE 500 MG/5 ML INJ 140 MG IV (00:44)
[2022-02-14 00:50] LABS: Blood Urea Nitrogen 110 mg/dL (7-17); Glucose 2082 mg/dL (70-100)
--- NOTE | 2022-02-14 01:29 | DI.RAD.S_ITS ---
PROCEDURE: XR CHEST 1V INDICATIONS: post IJ attempt (fail) TECHNIQUE: One view of the chest was acquired. COMPARISON: [facility], CR, XR CHEST 1V, 02/13/2022, 23:04. FINDINGS: Surgical changes and devices: None. Lungs and pleura: Lungs are clear. No pleural effusions or pneumothorax. Mediastinum: Mediastinal contours appear normal. Heart size is normal. Bones and chest wall: No suspicious bony lesions. Overlying soft tissues appear unremarkable. IMPRESSION: 1. No evidence of pneumothorax. Dictated by: Romain Walton M.D. on 02/14/2022 at 1:51 Approved by: Romain Walton M.D. on 02/14/2022 at 1:52
[2022-02-14] MEDS: NOREPINEPHRINE BITARTRATE/D5W 4 MG/250 ML PLAST..BAG 30 MG IV (01:45)
[2022-02-14] MEDS: POTASSIUM CHLORIDE IN WATER 10 MEQ/100 ML PIGGYBACK 100 MEQ IV ×8 (01:52→09:54)
[2022-02-14 01:56] LABS: Lactate (Lactic Acid) 1.3 mmol/L (0.7-2.1)
[2022-02-14 01:58] LABS: Alanine Aminotransferase 18 IU/L (<35); Albumin 3.9 g/dL (3.5-5.0); Albumin Globulin Ratio 1.8 (1.0-2.8); Alkaline Phosphatase 97 U/L (38-126); Aspartate Aminotransferase 17 IU/L (14-36); Bilirubin Total 0.7 mg/dL (0.2-1.3); Carbon Dioxide 17 mmol/L (22-32); Chloride 94 mmol/L (98-107); Globulin 2.2 g/dL (1.7-4.1); Sodium 136 mmol/L (137-145); Total Protein 6.1 g/dL (6.3-8.2)
[2022-02-14] MEDS: LORazepam 2 MG/ML INJ IV (01:59)
[2022-02-14 02:05] LABS: BUN Creatinine Ratio 29.9 (6-22); Estimated Glomerular Filt Rate 16 mL/min (>60)
[2022-02-14] MEDS: LACTATED RINGERS 1,000 ML 200 ML IV ×2 (02:05→07:15)
[2022-02-14] MEDS: SODIUM CHLORIDE 0.9% 1,000 ML 150 ML IV (02:09)
[2022-02-14 02:18] LABS: HEMOLYSIS < 15 (0-50)
--- NOTE | 2022-02-14 02:23 | PC.NURSE ---
pt arrived extremely disoriented. unable to open eyes or answer questions. mumbled incoherently. EMS stated pt had been drinking over weekend and been throwing up since friday, mother called for help when pt was acting strange. EMS reported Blood glucose of over 700 (maxed out there glucometer). our machine stated over 500 (maxed out). second IV line started, pt responded to pain. urinary catheter placed, pt uncooperative and did not want. spoke with MD, pt glucose had come back as 2188, pt unable to medically make her own decisions. mother wanted catheter in place. pt began trying to pull out IV catheters, urinary catheter, medical equipment. mother sitting by pt constantly. Pt moved to room 2 for central line placement. central line attempted by provider in neck but moved down to groin. pt given ketamine and ativan during procedure, pt left on vitals Q 15.
[2022-02-14 02:29] LABS: Blood Urea Nitrogen 109 mg/dL (7-17); Glucose 1920 mg/dL (70-100)
[2022-02-14 02:39] LABS: COVID19 -Nasal RAPID Negative (Negative)
[2022-02-14 04:25] LABS: HCO3 VBG 23 mmol/L (23-28); PCO2 VBG 60.5 mmHg (45-50); PO2 VBG 39 mmHg (35-45); Total CO2 VBG 25 mmol/L (24-29)
[2022-02-14 04:26] LABS: Oxygen Saturation VBG 60 % (70-75); pH VBG 7.19 (7.33-7.43)
[2022-02-14 04:28] LABS: HCO3 VBG 18 mmol/L (23-28); Oxygen Saturation VBG 83 % (70-75); PCO2 VBG 54.6 mmHg (45-50); PO2 VBG 62 mmHg (35-45); Total CO2 VBG 20 mmol/L (24-29)
[2022-02-14 04:29] LABS: pH VBG 7.13 (7.33-7.43)
[2022-02-14 05:21] LABS: Blood Urea Nitrogen 99 mg/dL (7-17); Calcium 8.7 mg/dL (8.4-10.2); Carbon Dioxide 20 mmol/L (22-32); Chloride 103 mmol/L (98-107); HEMOLYSIS < 15 (0-50); Potassium 2.8 mmol/L (3.4-5.1); Sodium 144 mmol/L (137-145)
[2022-02-14 05:27] LABS: BUN Creatinine Ratio 33.3 (6-22); Estimated Glomerular Filt Rate 21 mL/min (>60)
[2022-02-14 05:55] LABS: Glucose 1456 mg/dL (70-100)
[2022-02-14 07:54] LABS: Hematocrit 49.4 % (36-46); Hemoglobin 15.6 g/dL (12.0-16.0); Mean Corpuscular HGB Conc 31.6 % (30-36); Mean Corpuscular Hemoglobin 28.3 PG (26-34); Mean Corpuscular Volume 89.6 fL (80-100); Platelet Count 232 X10^3/uL (150-400); Red Blood Cell Count 5.51 X10^6/uL (4.0-5.2); Red Cell Distribution Width 13.7 % (11.6-14.8); White Blood Cell Count 18.1 X10^3/uL (4.5-11.0)
[2022-02-14 07:57] LABS: Add Manual Diff / Slide Review YES
[2022-02-14 07:59] LABS: Blood Urea Nitrogen 102 mg/dL (7-17); Calcium 8.3 mg/dL (8.4-10.2); Carbon Dioxide 23 mmol/L (22-32); Chloride 106 mmol/L (98-107); Estimated Glomerular Filt Rate 22 mL/min (>60); Potassium 3.3 mmol/L (3.4-5.1); Sodium 146 mmol/L (137-145)
[2022-02-14 08:07] LABS: Glucose 1200 mg/dL (70-100)
[2022-02-14 08:26] LABS: Neutrophils Absolute Manual 15023 /uL (3000-5900); Total Cells Counted 100
[2022-02-14 08:27] LABS: RBC Morphology Normal Morphology
[2022-02-14 08:55] LABS: Appearance Urine UA CLEAR; Bilirubin Urine UA NEGATIVE (NEGATIVE); Color Urine UA YELLOW; Glucose Urine UA 2+ g/dL (Negative); Ketones Urine UA TRACE (NEGATIVE); Leukocyte Esterase Urine UA NEGATIVE (NEGATIVE); Nitrite Urine UA NEGATIVE (Negative); Occult Blood Urine UA 2+ (Negative); Protein Urine UA 2+ (Negative); Specific Gravity Urine UA <=1.005 (1.000-1.035); Urobilinogen Urine UA 0.2 E.U./dL (0.2); pH Urine UA 5.5 (4.5-8.0)
[2022-02-14 08:58] LABS: RBC Urine 5-10/HPF (0-5/HPF); WBC Urine None Seen (0-5/HPF)
[2022-02-14 08:59] LABS: Bacteria Urine None Seen; Culture Indicated Urine Cult Not Indicated; Squamous Epithelial Cell Urine 0-1 /HPF (0-5/HPF)
[2022-02-14 10:07] LABS: HEMOLYSIS 17 (0-50)
[2022-02-14 10:26] LABS: Hemoglobin A1C% w Est Avg Glu 12.3 % (4.0-6.0)
[2022-02-14] MEDS: PIPERACILLIN/TAZO 3.375 GM in SODIUM CHLORIDE 0.9% 100 ML IV (10:26)
--- NOTE | 2022-02-14 10:38 | P.CONS_ITS ---
History of Present Illness Consult details Chief complaint: Abd. Pain, lethargic Narrative: Nathan Garcia is a 31yo F with PMH of type 1 diabetes who presents with abd pain, NV and found to be in DKA. Meds Home Medications and Allergies Allergies Allergy/AdvReac Type Severity Reaction Status Date / Time No Known Drug Allergies Allergy Verified 02/13/22 22:53 Exam Vital Signs (past 8 hours): - 02/14/22 04:30 02/14/22 03:50 02/14/22 03:50 Temperature 97.7 F Pulse Rate 119 H Respiratory Rate 36 H Blood Pressure 112/75 Pulse Oximetry 100 Oxygen Delivery Method 02/14/22 03:55 02/14/22 03:55 02/14/22 04:00 Temperature Pulse Rate 120 H Respiratory Rate 33 H Blood Pressure 110/72 109/70 Pulse Oximetry 100 Oxygen Delivery Method 02/14/22 04:00 02/14/22 04:05 02/14/22 04:05 Temperature Pulse Rate 121 H 122 H Respiratory Rate 37 H 36 H Blood Pressure 111/70 Pulse Oximetry 100 100 Oxygen Delivery Method 02/14/22 04:10 02/14/22 04:10 02/14/22 04:15 Temperature Pulse Rate 124 H Respiratory Rate 36 H Blood Pressure 115/70 111/67 Pulse Oximetry 99 Oxygen Delivery Method 02/14/22 04:15 02/14/22 04:20 02/14/22 04:20 Temperature Pulse Rate 124 H 123 H Respiratory Rate 38 H 38 H Blood Pressure 107/64 Pulse Oximetry 100 99 Oxygen Delivery Method 02/14/22 04:25 02/14/22 04:25 02/14/22 04:30 Temperature Pulse Rate 122 H Respiratory Rate 38 H Blood Pressure 106/69 107/72 Pulse Oximetry 98 Oxygen Delivery Method 02/14/22 04:30 02/14/22 04:35 02/14/22 04:35 Temperature Pulse Rate 124 H 124 H Respiratory Rate 41 H 40 H Blood Pressure 111/68 Pulse Oximetry 97 99 Oxygen Delivery Method 02/14/22 04:40 02/14/22 04:40 02/14/22 04:45 Temperature Pulse Rate 126 H Respiratory Rate 40 H Blood Pressure 112/71 105/78 Pulse Oximetry 98 Oxygen Delivery Method 02/14/22 04:45 02/14/22 04:50 02/14/22 04:50 Temperature Pulse Rate 127 H 126 H Respiratory Rate 40 H 40 H Blood Pressure 107/74 Pulse Oximetry 98 98 Oxygen Delivery Method 02/14/22 04:55 02/14/22 04:55 02/14/22 05:00 Temperature Pulse Rate 126 H Respiratory Rate 40 H Blood Pressure 103/70 104/67 Pulse Oximetry 98 Oxygen Delivery Method 02/14/22 05:00 02/14/22 05:05 02/14/22 05:05 Temperature Pulse Rate 128 H 128 H Respiratory Rate 45 H 41 H Blood Pressure 105/72 Pulse Oximetry 98 97 Oxygen Delivery Method 02/14/22 05:10 02/14/22 05:10 02/14/22 05:15 Temperature Pulse Rate 127 H Respiratory Rate 43 H Blood Pressure 106/71 107/65 Pulse Oximetry 97 Oxygen Delivery Method 02/14/22 05:15 02/14/22 05:20 02/14/22 05:20 Temperature Pulse Rate 128 H 128 H Respiratory Rate 42 H 43 H Blood Pressure 103/66 Pulse Oximetry 99 99 Oxygen Delivery Method 02/14/22 05:25 02/14/22 05:25 02/14/22 05:30 Temperature Pulse Rate 128 H Respiratory Rate 39 H Blood Pressure 99/74 99/74 Pulse Oximetry 98 Oxygen Delivery Method 02/14/22 05:30 02/14/22 05:35 02/14/22 05:35 Temperature Pulse Rate 129 H 128 H Respiratory Rate 44 H 42 H Blood Pressure 100/73 Pulse Oximetry 99 99 Oxygen Delivery Method 02/14/22 05:40 02/14/22 05:40 02/14/22 05:45 Temperature Pulse Rate 129 H Respiratory Rate 47 H Blood Pressure 99/72 99/72 Pulse Oximetry 99 Oxygen Delivery Method 02/14/22 05:45 02/14/22 05:50 02/14/22 05:50 Temperature Pulse Rate 128 H 130 H Respiratory Rate 41 H 44 H Blood Pressure 102/72 Pulse Oximetry 100 100 Oxygen Delivery Method 02/14/22 05:55 02/14/22 05:55 02/14/22 06:00 Temperature Pulse Rate 129 H Respiratory Rate 42 H Blood Pressure 99/72 103/79 Pulse Oximetry 100 Oxygen Delivery Method 02/14/22 06:00 02/14/22 06:05 02/14/22 06:05 Temperature Pulse Rate 130 H 132 H Respiratory Rate 42 H 42 H Blood Pressure 96/70 Pulse Oximetry 98 99 Oxygen Delivery Method 02/14/22 06:10 02/14/22 06:10 02/14/22 06:15 Temperature Pulse Rate 133 H Respiratory Rate 41 H Blood Pressure 93/65 93/62 Pulse Oximetry 99 Oxygen Delivery Method 02/14/22 06:15 02/14/22 06:20 02/14/22 06:20 Temperature Pulse Rate 134 H 133 H Respiratory Rate 43 H 41 H Blood Pressure 87/55 L Pulse Oximetry 99 100 Oxygen Delivery Method 02/14/22 06:25 02/14/22 06:25 02/14/22 06:30 Temperature Pulse Rate 133 H Respiratory Rate 41 H Blood Pressure 82/57 L 81/50 L Pulse Oximetry 98 Oxygen Delivery Method 02/14/22 06:30 02/14/22 06:35 02/14/22 06:35 Temperature Pulse Rate 134 H 134 H Respiratory Rate 42 H 43 H Blood Pressure 81/51 L Pulse Oximetry 100 95 Oxygen Delivery Method 02/14/22 06:40 02/14/22 06:40 02/14/22 06:45 Temperature Pulse Rate 132 H Respiratory Rate 48 H Blood Pressure 84/52 L 83/55 L Pulse Oximetry 97 Oxygen Delivery Method 02/14/22 06:45 02/14/22 06:50 02/14/22 06:50 Temperature Pulse Rate 133 H 134 H Respiratory Rate 44 H 42 H Blood Pressure 83/54 L Pulse Oximetry 99 100 Oxygen Delivery Method 02/14/22 06:55 02/14/22 06:55 02/14/22 07:00 Temperature Pulse Rate 134 H Respiratory Rate 31 H Blood Pressure 82/54 L 82/53 L Pulse Oximetry 100 Oxygen Delivery Method 02/14/22 07:00 02/14/22 07:05 02/14/22 07:05 Temperature Pulse Rate 134 H 134 H Respiratory Rate 44 H 43 H Blood Pressure 80/50 L Pulse Oximetry 100 100 Oxygen Delivery Method 02/14/22 07:10 02/14/22 07:10 02/14/22 07:15 Temperature Pulse Rate 135 H Respiratory Rate 35 H Blood Pressure 82/52 L 76/51 L Pulse Oximetry 100 Oxygen Delivery Method Room Air 02/14/22 07:15 02/14/22 07:20 02/14/22 07:20 Temperature Pulse Rate 135 H 132 H Respiratory Rate 37 H 37 H Blood Pressure 79/54 L Pulse Oximetry 100 100 Oxygen Delivery Method Room Air Room Air 02/14/22 07:25 02/14/22 07:25 02/14/22 07:30 Temperature Pulse Rate 134 H Respiratory Rate 37 H Blood Pressure 83/54 L 89/57 L Pulse Oximetry 100 Oxygen Delivery Method Room Air 02/14/22 07:30 02/14/22 07:35 02/14/22 07:35 Temperature Pulse Rate 134 H 134 H Respiratory Rate 37 H 35 H Blood Pressure 84/53 L Pulse Oximetry 100 100 Oxygen Delivery Method Room Air Room Air 02/14/22 07:40 02/14/22 07:40 02/14/22 07:45 Temperature Pulse Rate 135 H Respiratory Rate 31 H Blood Pressure 88/60 L 93/62 Pulse Oximetry 100 Oxygen Delivery Method Room Air 02/14/22 07:45 02/14/22 07:50 02/14/22 07:50 Temperature Pulse Rate 135 H 135 H Respiratory Rate 45 H 45 H Blood Pressure 89/57 L Pulse Oximetry 100 99 Oxygen Delivery Method 02/14/22 07:55 02/14/22 07:55 02/14/22 08:00 Temperature Pulse Rate 134 H Respiratory Rate 36 H Blood Pressure 88/53 L 87/56 L Pulse Oximetry 99 Oxygen Delivery Method 02/14/22 08:00 02/14/22 08:05 02/14/22 08:05 Temperature Pulse Rate 134 H 138 H Respiratory Rate 45 H 44 H Blood Pressure 89/54 L Pulse Oximetry 98 98 Oxygen Delivery Method 02/14/22 08:10 02/14/22 08:10 02/14/22 08:15 Temperature Pulse Rate 138 H Respiratory Rate 46 H Blood Pressure 86/57 L 87/55 L Pulse Oximetry 96 Oxygen Delivery Method 02/14/22 08:15 02/14/22 08:19 02/14/22 08:19 Temperature Pulse Rate 138 H 138 H Respiratory Rate 44 H 45 H Blood Pressure 85/54 L Pulse Oximetry 99 98 Oxygen Delivery Method Room Air 02/14/22 08:20 02/14/22 08:20 02/14/22 08:25 Temperature Pulse Rate 137 H Respiratory Rate 45 H Blood Pressure 82/53 L 83/54 L Pulse Oximetry 96 Oxygen Delivery Method 02/14/22 08:25 02/14/22 08:30 02/14/22 08:30 Temperature Pulse Rate 135 H 137 H Respiratory Rate 45 H 45 H Blood Pressure 90/52 L Pulse Oximetry 96 97 Oxygen Delivery Method 02/14/22 08:35 02/14/22 08:35 02/14/22 08:40 Temperature Pulse Rate 134 H Respiratory Rate 43 H Blood Pressure 85/50 L 90/55 L Pulse Oximetry 97 Oxygen Delivery Method 02/14/22 08:40 02/14/22 08:45 02/14/22 08:45 Temperature Pulse Rate 135 H 135 H Respiratory Rate 45 H 45 H Blood Pressure 93/53 L Pulse Oximetry 97 97 Oxygen Delivery Method 02/14/22 08:50 02/14/22 08:50 02/14/22 08:55 Temperature Pulse Rate 135 H Respiratory Rate 44 H Blood Pressure 92/51 L 93/52 L Pulse Oximetry 95 Oxygen Delivery Method 02/14/22 08:55 02/14/22 09:00 02/14/22 09:01 Temperature Pulse Rate 137 H 135 H Respiratory Rate 47 H 43 H Blood Pressure 93/59 L Pulse Oximetry 96 97 Oxygen Delivery Method 02/14/22 09:01 02/14/22 09:05 02/14/22 09:05 Temperature Pulse Rate 137 H 137 H Respiratory Rate 41 H 47 H Blood Pressure 93/58 L Pulse Oximetry 97 99 Oxygen Delivery Method 02/14/22 09:10 02/14/22 09:10 02/14/22 09:15 Temperature Pulse Rate 133 H Respiratory Rate 45 H Blood Pressure 89/57 L 91/59 L Pulse Oximetry 98 Oxygen Delivery Method 02/14/22 09:15 02/14/22 09:20 02/14/22 09:20 Temperature Pulse Rate 137 H 136 H Respiratory Rate 38 H 45 H Blood Pressure 93/61 Pulse Oximetry 97 97 Oxygen Delivery Method Room Air 02/14/22 09:25 02/14/22 09:25 02/14/22 09:30 Temperature Pulse Rate 135 H Respiratory Rate 47 H Blood Pressure 92/57 L 96/60 Pulse Oximetry 97 Oxygen Delivery Method 02/14/22 09:30 02/14/22 09:35 02/14/22 09:35 Temperature Pulse Rate 135 H 135 H Respiratory Rate 44 H 45 H Blood Pressure 93/55 L Pulse Oximetry 97 97 Oxygen Delivery Method 02/14/22 09:40 02/14/22 09:40 02/14/22 09:45 Temperature Pulse Rate 137 H Respiratory Rate 49 H Blood Pressure 94/59 L 95/61 Pulse Oximetry 97 Oxygen Delivery Method 02/14/22 09:45 02/14/22 09:50 02/14/22 09:50 Temperature Pulse Rate 136 H 138 H Respiratory Rate 45 H 43 H Blood Pressure 89/55 L Pulse Oximetry 97 97 Oxygen Delivery Method 02/14/22 09:55 02/14/22 09:55 02/14/22 10:00 Temperature Pulse Rate 135 H Respiratory Rate 45 H Blood Pressure 92/50 L 98/52 L Pulse Oximetry 96 Oxygen Delivery Method 02/14/22 10:00 Temperature Pulse Rate 135 H Respiratory Rate 44 H Blood Pressure Pulse Oximetry 96 Oxygen Delivery Method Oxygen Delivery Method Room Air Objective Labs Result Diagrams: 02/14/22 07:33 02/14/22 07:33 Labs: Laboratory Results - last 24 hr 02/13/22 02/13/22 02/13/22 22:47 22:47 22:47 WBC 18.4 H RBC 5.89 H Hgb 17.3 H Hct 61.7 H* MCV 104.7 H MCH 29.3 MCHC 28.0 L RDW 15.2 H Plt Count 251 Neut % (Auto) 89.5 H Lymph % (Auto) 3.7 L [place] % (Auto) 6.6 Eos % (Auto) 0.1 L Baso % (Auto) 0.1 Neut # (Auto) 33963 H Lymph # (Auto) 700 L [place] # (Auto) 1200 H Eos # (Auto) 0 Baso # (Auto) 0 Total Counted Seg Neutrophils % Band Neutrophils % Lymphocytes % (Manual) Atypical Lymphs % Monocytes % (Manual) Metamyelocytes % Neutrophils # (Manual) RBC Morphology VBG pH VBG pCO2 VBG pO2 VBG HCO3 VBG Total CO2 VBG O2 Saturation VBG Base Excess Sodium 127 L Potassium 2.8 L Chloride 77 L Carbon Dioxide 19 L BUN 116 H* Creatinine 4.05 H Estimated GFR 14 L BUN/Creatinine Ratio 28.6 H Glucose 2188 H* Hemoglobin A1c Lactate Calcium 9.4 Magnesium Total Bilirubin 1.1 AST 21 ALT 21 Alkaline Phosphatase 125 Ammonia < 9 L Total Creatine Kinase 247 H CK-MB (CK-2) 1.60 CK-MB (CK-2) Rel Index 0.6 L Troponin I 0.034 Total Protein 7.6 Albumin 4.9 Globulin 2.7 Albumin/Globulin Ratio 1.8 Lipase 797 H HCG, Quant Urine Color Urine Appearance Urine pH Ur Specific [place] Urine Protein Urine Glucose (UA) Urine Ketones Urine Occult Blood Urine Nitrate Urine Bilirubin Urine Urobilinogen Ur Leukocyte Esterase Urine RBC Urine WBC Ur Squamous Epith Cells Urine Bacteria Ur Culture Indicated? U Opiates 300ng/mL cut Ur Oxycodone Screen Urine Methadone Screen Ur Barbiturates Screen U Tricyclic Antidepress Ur Phencyclidine Scrn Ur Amphetamines Screen U Methamphetamines Scrn Ur MDMA Scrn (Ecstasy) U Benzodiazepines Scrn Urine Cocaine Screen U Marijuana (THC) Screen Ethyl Alcohol < 10 Ketones 7.83 H SARS-CoV-2 (PCR) 02/13/22 02/13/22 02/13/22 22:47 22:53 23:23 WBC RBC Hgb Hct MCV MCH MCHC RDW Plt Count Neut % (Auto) Lymph % (Auto) [place] % (Auto) Eos % (Auto) Baso % (Auto) Neut # (Auto) Lymph # (Auto) [place] # (Auto) Eos # (Auto) Baso # (Auto) Total Counted Seg Neutrophils % Band Neutrophils % Lymphocytes % (Manual) Atypical Lymphs % Monocytes % (Manual) Metamyelocytes % Neutrophils # (Manual) RBC Morphology VBG pH 7.19 L* VBG pCO2 60.5 H VBG pO2 39 VBG HCO3 23 VBG Total CO2 25 VBG O2 Saturation 60 L VBG Base Excess -5.0 L Sodium Potassium Chloride Carbon Dioxide BUN Creatinine Estimated GFR BUN/Creatinine Ratio Glucose Hemoglobin A1c Lactate Calcium Magnesium Total Bilirubin AST ALT Alkaline Phosphatase Ammonia Total Creatine Kinase CK-MB (CK-2) CK-MB (CK-2) Rel Index Troponin I Total Protein Albumin Globulin Albumin/Globulin Ratio Lipase HCG, Quant < 2.4 Urine Color Urine Appearance Urine pH Ur Specific [place] Urine Protein Urine Glucose (UA) Urine Ketones Urine Occult Blood Urine Nitrate Urine Bilirubin Urine Urobilinogen Ur Leukocyte Esterase Urine RBC Urine WBC Ur Squamous Epith Cells Urine Bacteria Ur Culture Indicated? U Opiates 300ng/mL cut Negative Ur Oxycodone Screen Positive H Urine Methadone Screen Negative Ur Barbiturates Screen Negative U Tricyclic Antidepress Negative Ur Phencyclidine Scrn Negative Ur Amphetamines Screen Negative U Methamphetamines Scrn Negative Ur MDMA Scrn (Ecstasy) Negative U Benzodiazepines Scrn Negative Urine Cocaine Screen Negative U Marijuana (THC) Screen Negative Ethyl Alcohol Ketones SARS-CoV-2 (PCR) 02/13/22 02/13/22 02/14/22 23:31 23:54 01:32 WBC RBC Hgb Hct MCV MCH MCHC RDW Plt Count Neut % (Auto) Lymph % (Auto) [place] % (Auto) Eos % (Auto) Baso % (Auto) Neut # (Auto) Lymph # (Auto) [place] # (Auto) Eos # (Auto) Baso # (Auto) Total Counted Seg Neutrophils % Band Neutrophils % Lymphocytes % (Manual) Atypical Lymphs % Monocytes % (Manual) Metamyelocytes % Neutrophils # (Manual) RBC Morphology VBG pH VBG pCO2 VBG pO2 VBG HCO3 VBG Total CO2 VBG O2 Saturation VBG Base Excess Sodium 131 L 136 L Potassium 2.8 L 3.0 L Chloride 89 L 94 L Carbon Dioxide 16 L 17 L BUN 110 H* 109 H* Creatinine 3.75 H 3.64 H Estimated GFR 16 L 16 L BUN/Creatinine Ratio 29.3 H 29.9 H Glucose 2082 H* 1920 H* Hemoglobin A1c Lactate 1.4 Calcium 8.2 L 8.0 L Magnesium Total Bilirubin 0.7 AST 17 ALT 18 Alkaline Phosphatase 97 Ammonia Total Creatine Kinase CK-MB (CK-2) CK-MB (CK-2) Rel Index Troponin I Total Protein 6.1 L Albumin 3.9 Globulin 2.2 Albumin/Globulin Ratio 1.8 Lipase HCG, Quant Urine Color Urine Appearance Urine pH Ur Specific [place] Urine Protein Urine Glucose (UA) Urine Ketones Urine Occult Blood Urine Nitrate Urine Bilirubin Urine Urobilinogen Ur Leukocyte Esterase Urine RBC Urine WBC Ur Squamous Epith Cells Urine Bacteria Ur Culture Indicated? U Opiates 300ng/mL cut Ur Oxycodone Screen Urine Methadone Screen Ur Barbiturates Screen U Tricyclic Antidepress Ur Phencyclidine Scrn Ur Amphetamines Screen U Methamphetamines Scrn Ur MDMA Scrn (Ecstasy) U Benzodiazepines Scrn Urine Cocaine Screen U Marijuana (THC) Screen Ethyl Alcohol Ketones SARS-CoV-2 (PCR) 02/14/22 02/14/22 02/14/22 01:32 01:35 01:58 WBC RBC Hgb Hct MCV MCH MCHC RDW Plt Count Neut % (Auto) Lymph % (Auto) [place] % (Auto) Eos % (Auto) Baso % (Auto) Neut # (Auto) Lymph # (Auto) [place] # (Auto) Eos # (Auto) Baso # (Auto) Total Counted Seg Neutrophils % Band Neutrophils % Lymphocytes % (Manual) Atypical Lymphs % Monocytes % (Manual) Metamyelocytes % Neutrophils # (Manual) RBC Morphology VBG pH 7.13 L* VBG pCO2 54.6 H VBG pO2 62 H VBG HCO3 18 L VBG Total CO2 20 L VBG O2 Saturation 83 H VBG Base Excess -11.0 L Sodium Potassium Chloride Carbon Dioxide BUN Creatinine Estimated GFR BUN/Creatinine Ratio Glucose Hemoglobin A1c Lactate 1.3 Calcium Magnesium Total Bilirubin AST ALT Alkaline Phosphatase Ammonia Total Creatine Kinase CK-MB (CK-2) CK-MB (CK-2) Rel Index Troponin I Total Protein Albumin Globulin Albumin/Globulin Ratio Lipase HCG, Quant Urine Color Urine Appearance Urine pH Ur Specific [place] Urine Protein Urine Glucose (UA) Urine Ketones Urine Occult Blood Urine Nitrate Urine Bilirubin Urine Urobilinogen Ur Leukocyte Esterase Urine RBC Urine WBC Ur Squamous Epith Cells Urine Bacteria Ur Culture Indicated? U Opiates 300ng/mL cut Ur Oxycodone Screen Urine Methadone Screen Ur Barbiturates Screen U Tricyclic Antidepress Ur Phencyclidine Scrn Ur Amphetamines Screen U Methamphetamines Scrn Ur MDMA Scrn (Ecstasy) U Benzodiazepines Scrn Urine Cocaine Screen U Marijuana (THC) Screen Ethyl Alcohol Ketones SARS-CoV-2 (PCR) Negative 02/14/22 02/14/22 02/14/22 05:00 07:33 07:33 WBC 18.1 H RBC 5.51 H Hgb 15.6 Hct 49.4 H MCV 89.6 D MCH 28.3 MCHC 31.6 D RDW 13.7 Plt Count 232 Neut % (Auto) Not Reportable Lymph % (Auto) Not Reportable [place] % (Auto) Not Reportable Eos % (Auto) Not Reportable Baso % (Auto) Not Reportable Neut # (Auto) Lymph # (Auto) Not Reportable [place] # (Auto) Not Reportable Eos # (Auto) Baso # (Auto) Not Reportable Total Counted 100 Seg Neutrophils % 75.0 H Band Neutrophils % 8.0 H Lymphocytes % (Manual) 9.0 L Atypical Lymphs % 1.0 H Monocytes % (Manual) 6.0 Metamyelocytes % 1.0 H Neutrophils # (Manual) 62683 H RBC Morphology Normal morphology VBG pH VBG pCO2 VBG pO2 VBG HCO3 VBG Total CO2 VBG O2 Saturation VBG Base Excess Sodium 144 146 H Potassium 2.8 L 3.3 L Chloride 103 106 Carbon Dioxide 20 L 23 BUN 99 H 102 H Creatinine 2.97 H 2.83 H Estimated GFR 21 L 22 L BUN/Creatinine Ratio 33.3 H 36.0 H Glucose 1456 H* 1200 H* Hemoglobin A1c Lactate Calcium 8.7 8.3 L Magnesium Total Bilirubin AST ALT Alkaline Phosphatase Ammonia Total Creatine Kinase CK-MB (CK-2) CK-MB (CK-2) Rel Index Troponin I Total Protein Albumin Globulin Albumin/Globulin Ratio Lipase HCG, Quant Urine Color Urine Appearance Urine pH Ur Specific [place] Urine Protein Urine Glucose (UA) Urine Ketones Urine Occult Blood Urine Nitrate Urine Bilirubin Urine Urobilinogen Ur Leukocyte Esterase Urine RBC Urine WBC Ur Squamous Epith Cells Urine Bacteria Ur Culture Indicated? U Opiates 300ng/mL cut Ur Oxycodone Screen Urine Methadone Screen Ur Barbiturates Screen U Tricyclic Antidepress Ur Phencyclidine Scrn Ur Amphetamines Screen U Methamphetamines Scrn Ur MDMA Scrn (Ecstasy) U Benzodiazepines Scrn Urine Cocaine Screen U Marijuana (THC) Screen Ethyl Alcohol Ketones SARS-CoV-2 (PCR) 02/14/22 02/14/22 02/14/22 07:33 07:33 08:51 WBC RBC Hgb Hct MCV MCH MCHC RDW Plt Count Neut % (Auto) Lymph % (Auto) [place] % (Auto) Eos % (Auto) Baso % (Auto) Neut # (Auto) Lymph # (Auto) [place] # (Auto) Eos # (Auto) Baso # (Auto) Total Counted Seg Neutrophils % Band Neutrophils % Lymphocytes % (Manual) Atypical Lymphs % Monocytes % (Manual) Metamyelocytes % Neutrophils # (Manual) RBC Morphology VBG pH VBG pCO2 VBG pO2 VBG HCO3 VBG Total CO2 VBG O2 Saturation VBG Base Excess Sodium Potassium Chloride Carbon Dioxide BUN Creatinine Estimated GFR BUN/Creatinine Ratio Glucose Hemoglobin A1c 12.3 H Lactate Calcium Magnesium 4.0 H Total Bilirubin AST ALT Alkaline Phosphatase Ammonia Total Creatine Kinase CK-MB (CK-2) CK-MB (CK-2) Rel Index Troponin I Total Protein Albumin Globulin Albumin/Globulin Ratio Lipase HCG, Quant Urine Color Yellow Urine Appearance Clear Urine pH 5.5 Ur Specific [place] <=1.005 Urine Protein 2+ H Urine Glucose (UA) 2+ H Urine Ketones Trace H Urine Occult Blood 2+ H Urine Nitrate Negative Urine Bilirubin Negative Urine Urobilinogen 0.2 Ur Leukocyte Esterase Negative Urine RBC 5-10/hpf H Urine WBC None seen Ur Squamous Epith Cells 0-1 /hpf Urine Bacteria None seen Ur Culture Indicated? Cult not indicated U Opiates 300ng/mL cut Ur Oxycodone Screen Urine Methadone Screen Ur Barbiturates Screen U Tricyclic Antidepress Ur Phencyclidine Scrn Ur Amphetamines Screen U Methamphetamines Scrn Ur MDMA Scrn (Ecstasy) U Benzodiazepines Scrn Urine Cocaine Screen U Marijuana (THC) Screen Ethyl Alcohol Ketones SARS-CoV-2 (PCR) PFSH Tobacco & Substance Use Smoking Status: Never smoker Assessment & Plan Time Spent With Patient Critical Care time: I spent a total of [] minutes of critical care time on this patient's care today; this time is exclusive of procedural time.
[2022-02-14 10:57] LABS: TSH w/ Reflex to FT4 0.53 uIU/mL (0.47-4.68)
[2022-02-14] MEDS: NOREPINEPHRINE BITARTRATE/D5W 4 MG/250 ML PLAST..BAG 37.5 MG IV (10:59)
[2022-02-14] MEDS: LACTATED RINGERS 1,000 ML 1000 ML IV ×4 (11:30→18:20)
[2022-02-14 11:53] LABS: Hematocrit 46.5 % (36-46); Mean Corpuscular HGB Conc 32.3 % (30-36); Mean Corpuscular Hemoglobin 28.5 PG (26-34); Platelet Count 257 X10^3/uL (150-400); Red Blood Cell Count 5.28 X10^6/uL (4.0-5.2); Red Cell Distribution Width 13.6 % (11.6-14.8); White Blood Cell Count 19.8 X10^3/uL (4.5-11.0)
[2022-02-14 11:54] LABS: Add Manual Diff / Slide Review YES
[2022-02-14 11:55] LABS: BUN Creatinine Ratio 35.8 (6-22); Blood Urea Nitrogen 95 mg/dL (7-17); Calcium 8.3 mg/dL (8.4-10.2); Chloride 107 mmol/L (98-107); Estimated Glomerular Filt Rate 24 mL/min (>60); Potassium 4.5 mmol/L (3.4-5.1); Sodium 145 mmol/L (137-145)
[2022-02-14 12:05] LABS: Glucose 1076 mg/dL (70-100)
--- NOTE | 2022-02-14 12:07 | PM.HP.1 ---
History of Present Illness History of Present Illness Date Patient Seen: 02/14/22 Time Patient Seen: 14:00 Chief complaint: Abd. Pain, lethargic Narrative: Nathan Garcia is a 31yo F with PMH of type 1 diabetes who presents with abd pain, NV, encephalopathic and with a glucose of 2188. Patient unable to provide history due to encephalopathy. Per ED notes patient went on a [place] partying for several days consuming alcohol then developing intractable NV and was only cosuming 12/03 slurpees for 5 days. Her mother noticed she was becoming increasingly lethargic, confused and with decreased responsiveness. Once in the ED patient found to have glucose of 2188, bicarb 19, elevated ketones and anion gap of 31. Cr 4.05, WBC 18.4, Hgb 17.3, and platelets 251. VBG with pH 7.19. Beta HCG negative. Utox positive for only oxycodone. Blood cultures were drawn and patient start on zosyn, which was subsequently changed to vanc and cefepime with acyclovir for possible meningitis. LP not obtained in ED. UA negative, CXR negative. CT abd pelvix with fat stranding and mod inflamm changed of RUQ but no definite pancreatitis. Lipase 797. Vitals initially 87/59, pulse 118 and RR 35. Levophed started at approx 01:40 on 02/14 after BP dropped to 83/52 and is currently running at 10mcg/hr. Current sodium 151 and glucose now 889 therefore corrected sodium of 164. Creatinine improved to 2.21. Patient History Family & Social History Tobacco & Substance use: Smoking Status Never smoker alcohol intake frequency holiday/special occasion Substance Use Type marijuana Meds Home Medications and Allergies Home Medications Medication Instructions Recorded Confirmed Type No Known Home Medications 02/14/22 02/14/22 History Allergies Allergy/AdvReac Type Severity Reaction Status Date / Time No Known Drug Allergies Allergy Verified 02/13/22 22:53 Review of Systems Review of Systems Narrative: All other systems reviewed with the patient and are negative unless otherwise stated. Exam Vital Signs (past 8 hours): - 02/14/22 04:30 02/14/22 04:10 02/14/22 04:10 Temperature 97.7 F Pulse Rate 124 H Respiratory Rate 36 H Blood Pressure 115/70 Pulse Oximetry 99 Oxygen Delivery Method 02/14/22 04:15 02/14/22 04:15 02/14/22 04:20 Temperature Pulse Rate 124 H Respiratory Rate 38 H Blood Pressure 111/67 107/64 Pulse Oximetry 100 Oxygen Delivery Method 02/14/22 04:20 02/14/22 04:25 02/14/22 04:25 Temperature Pulse Rate 123 H 122 H Respiratory Rate 38 H 38 H Blood Pressure 106/69 Pulse Oximetry 99 98 Oxygen Delivery Method 02/14/22 04:30 02/14/22 04:30 02/14/22 04:35 Temperature Pulse Rate 124 H Respiratory Rate 41 H Blood Pressure 107/72 111/68 Pulse Oximetry 97 Oxygen Delivery Method 02/14/22 04:35 02/14/22 04:40 02/14/22 04:40 Temperature Pulse Rate 124 H 126 H Respiratory Rate 40 H 40 H Blood Pressure 112/71 Pulse Oximetry 99 98 Oxygen Delivery Method 02/14/22 04:45 02/14/22 04:45 02/14/22 04:50 Temperature Pulse Rate 127 H Respiratory Rate 40 H Blood Pressure 105/78 107/74 Pulse Oximetry 98 Oxygen Delivery Method 02/14/22 04:50 02/14/22 04:55 02/14/22 04:55 Temperature Pulse Rate 126 H 126 H Respiratory Rate 40 H 40 H Blood Pressure 103/70 Pulse Oximetry 98 98 Oxygen Delivery Method 02/14/22 05:00 02/14/22 05:00 02/14/22 05:05 Temperature Pulse Rate 128 H Respiratory Rate 45 H Blood Pressure 104/67 105/72 Pulse Oximetry 98 Oxygen Delivery Method 02/14/22 05:05 02/14/22 05:10 02/14/22 05:10 Temperature Pulse Rate 128 H 127 H Respiratory Rate 41 H 43 H Blood Pressure 106/71 Pulse Oximetry 97 97 Oxygen Delivery Method 02/14/22 05:15 02/14/22 05:15 02/14/22 05:20 Temperature Pulse Rate 128 H Respiratory Rate 42 H Blood Pressure 107/65 103/66 Pulse Oximetry 99 Oxygen Delivery Method 02/14/22 05:20 02/14/22 05:25 02/14/22 05:25 Temperature Pulse Rate 128 H 128 H Respiratory Rate 43 H 39 H Blood Pressure 99/74 Pulse Oximetry 99 98 Oxygen Delivery Method 02/14/22 05:30 02/14/22 05:30 02/14/22 05:35 Temperature Pulse Rate 129 H Respiratory Rate 44 H Blood Pressure 99/74 100/73 Pulse Oximetry 99 Oxygen Delivery Method 02/14/22 05:35 02/14/22 05:40 02/14/22 05:40 Temperature Pulse Rate 128 H 129 H Respiratory Rate 42 H 47 H Blood Pressure 99/72 Pulse Oximetry 99 99 Oxygen Delivery Method 02/14/22 05:45 02/14/22 05:45 02/14/22 05:50 Temperature Pulse Rate 128 H Respiratory Rate 41 H Blood Pressure 99/72 102/72 Pulse Oximetry 100 Oxygen Delivery Method 02/14/22 05:50 02/14/22 05:55 02/14/22 05:55 Temperature Pulse Rate 130 H 129 H Respiratory Rate 44 H 42 H Blood Pressure 99/72 Pulse Oximetry 100 100 Oxygen Delivery Method 02/14/22 06:00 02/14/22 06:00 02/14/22 06:05 Temperature Pulse Rate 130 H Respiratory Rate 42 H Blood Pressure 103/79 96/70 Pulse Oximetry 98 Oxygen Delivery Method 02/14/22 06:05 02/14/22 06:10 02/14/22 06:10 Temperature Pulse Rate 132 H 133 H Respiratory Rate 42 H 41 H Blood Pressure 93/65 Pulse Oximetry 99 99 Oxygen Delivery Method 02/14/22 06:15 02/14/22 06:15 02/14/22 06:20 Temperature Pulse Rate 134 H Respiratory Rate 43 H Blood Pressure 93/62 87/55 L Pulse Oximetry 99 Oxygen Delivery Method 02/14/22 06:20 02/14/22 06:25 02/14/22 06:25 Temperature Pulse Rate 133 H 133 H Respiratory Rate 41 H 41 H Blood Pressure 82/57 L Pulse Oximetry 100 98 Oxygen Delivery Method 02/14/22 06:30 02/14/22 06:30 02/14/22 06:35 Temperature Pulse Rate 134 H Respiratory Rate 42 H Blood Pressure 81/50 L 81/51 L Pulse Oximetry 100 Oxygen Delivery Method 02/14/22 06:35 02/14/22 06:40 02/14/22 06:40 Temperature Pulse Rate 134 H 132 H Respiratory Rate 43 H 48 H Blood Pressure 84/52 L Pulse Oximetry 95 97 Oxygen Delivery Method 02/14/22 06:45 02/14/22 06:45 02/14/22 06:50 Temperature Pulse Rate 133 H Respiratory Rate 44 H Blood Pressure 83/55 L 83/54 L Pulse Oximetry 99 Oxygen Delivery Method 02/14/22 06:50 02/14/22 06:55 02/14/22 06:55 Temperature Pulse Rate 134 H 134 H Respiratory Rate 42 H 31 H Blood Pressure 82/54 L Pulse Oximetry 100 100 Oxygen Delivery Method 02/14/22 07:00 02/14/22 07:00 02/14/22 07:05 Temperature Pulse Rate 134 H Respiratory Rate 44 H Blood Pressure 82/53 L 80/50 L Pulse Oximetry 100 Oxygen Delivery Method 02/14/22 07:05 02/14/22 07:10 02/14/22 07:10 Temperature Pulse Rate 134 H 135 H Respiratory Rate 43 H 35 H Blood Pressure 82/52 L Pulse Oximetry 100 100 Oxygen Delivery Method Room Air 02/14/22 07:15 02/14/22 07:15 02/14/22 07:20 Temperature Pulse Rate 135 H Respiratory Rate 37 H Blood Pressure 76/51 L 79/54 L Pulse Oximetry 100 Oxygen Delivery Method Room Air 02/14/22 07:20 02/14/22 07:25 02/14/22 07:25 Temperature Pulse Rate 132 H 134 H Respiratory Rate 37 H 37 H Blood Pressure 83/54 L Pulse Oximetry 100 100 Oxygen Delivery Method Room Air Room Air 02/14/22 07:30 02/14/22 07:30 02/14/22 07:35 Temperature Pulse Rate 134 H Respiratory Rate 37 H Blood Pressure 89/57 L 84/53 L Pulse Oximetry 100 Oxygen Delivery Method Room Air 02/14/22 07:35 02/14/22 07:40 02/14/22 07:40 Temperature Pulse Rate 134 H 135 H Respiratory Rate 35 H 31 H Blood Pressure 88/60 L Pulse Oximetry 100 100 Oxygen Delivery Method Room Air Room Air 02/14/22 07:45 02/14/22 07:45 02/14/22 07:50 Temperature Pulse Rate 135 H Respiratory Rate 45 H Blood Pressure 93/62 89/57 L Pulse Oximetry 100 Oxygen Delivery Method 02/14/22 07:50 02/14/22 07:55 02/14/22 07:55 Temperature Pulse Rate 135 H 134 H Respiratory Rate 45 H 36 H Blood Pressure 88/53 L Pulse Oximetry 99 99 Oxygen Delivery Method 02/14/22 08:00 02/14/22 08:00 02/14/22 08:05 Temperature Pulse Rate 134 H Respiratory Rate 45 H Blood Pressure 87/56 L 89/54 L Pulse Oximetry 98 Oxygen Delivery Method 02/14/22 08:05 02/14/22 08:10 02/14/22 08:10 Temperature Pulse Rate 138 H 138 H Respiratory Rate 44 H 46 H Blood Pressure 86/57 L Pulse Oximetry 98 96 Oxygen Delivery Method 02/14/22 08:15 02/14/22 08:15 02/14/22 08:19 Temperature Pulse Rate 138 H 138 H Respiratory Rate 44 H 45 H Blood Pressure 87/55 L Pulse Oximetry 99 98 Oxygen Delivery Method Room Air 02/14/22 08:19 02/14/22 08:20 02/14/22 08:20 Temperature Pulse Rate 137 H Respiratory Rate 45 H Blood Pressure 85/54 L 82/53 L Pulse Oximetry 96 Oxygen Delivery Method 02/14/22 08:25 02/14/22 08:25 02/14/22 08:30 Temperature Pulse Rate 135 H Respiratory Rate 45 H Blood Pressure 83/54 L 90/52 L Pulse Oximetry 96 Oxygen Delivery Method 02/14/22 08:30 02/14/22 08:35 02/14/22 08:35 Temperature Pulse Rate 137 H 134 H Respiratory Rate 45 H 43 H Blood Pressure 85/50 L Pulse Oximetry 97 97 Oxygen Delivery Method 02/14/22 08:40 02/14/22 08:40 02/14/22 08:45 Temperature Pulse Rate 135 H Respiratory Rate 45 H Blood Pressure 90/55 L 93/53 L Pulse Oximetry 97 Oxygen Delivery Method 02/14/22 08:45 02/14/22 08:50 02/14/22 08:50 Temperature Pulse Rate 135 H 135 H Respiratory Rate 45 H 44 H Blood Pressure 92/51 L Pulse Oximetry 97 95 Oxygen Delivery Method 02/14/22 08:55 02/14/22 08:55 02/14/22 09:00 Temperature Pulse Rate 137 H 135 H Respiratory Rate 47 H 43 H Blood Pressure 93/52 L Pulse Oximetry 96 97 Oxygen Delivery Method 02/14/22 09:01 02/14/22 09:01 02/14/22 09:05 Temperature Pulse Rate 137 H Respiratory Rate 41 H Blood Pressure 93/59 L 93/58 L Pulse Oximetry 97 Oxygen Delivery Method 02/14/22 09:05 02/14/22 09:10 02/14/22 09:10 Temperature Pulse Rate 137 H 133 H Respiratory Rate 47 H 45 H Blood Pressure 89/57 L Pulse Oximetry 99 98 Oxygen Delivery Method 02/14/22 09:15 02/14/22 09:15 02/14/22 09:20 Temperature Pulse Rate 137 H Respiratory Rate 38 H Blood Pressure 91/59 L 93/61 Pulse Oximetry 97 Oxygen Delivery Method 02/14/22 09:20 02/14/22 09:25 02/14/22 09:25 Temperature Pulse Rate 136 H 135 H Respiratory Rate 45 H 47 H Blood Pressure 92/57 L Pulse Oximetry 97 97 Oxygen Delivery Method Room Air 02/14/22 09:30 02/14/22 09:30 02/14/22 09:35 Temperature Pulse Rate 135 H Respiratory Rate 44 H Blood Pressure 96/60 93/55 L Pulse Oximetry 97 Oxygen Delivery Method 02/14/22 09:35 02/14/22 09:40 02/14/22 09:40 Temperature Pulse Rate 135 H 137 H Respiratory Rate 45 H 49 H Blood Pressure 94/59 L Pulse Oximetry 97 97 Oxygen Delivery Method 02/14/22 09:45 02/14/22 09:45 02/14/22 09:50 Temperature Pulse Rate 136 H Respiratory Rate 45 H Blood Pressure 95/61 89/55 L Pulse Oximetry 97 Oxygen Delivery Method 02/14/22 09:50 02/14/22 09:55 02/14/22 09:55 Temperature Pulse Rate 138 H 135 H Respiratory Rate 43 H 45 H Blood Pressure 92/50 L Pulse Oximetry 97 96 Oxygen Delivery Method 02/14/22 10:00 02/14/22 10:00 02/14/22 10:05 Temperature Pulse Rate 135 H Respiratory Rate 44 H Blood Pressure 98/52 L 97/50 L Pulse Oximetry 96 Oxygen Delivery Method 02/14/22 10:05 02/14/22 10:10 02/14/22 10:10 Temperature Pulse Rate 135 H 138 H Respiratory Rate 45 H 49 H Blood Pressure 103/58 L Pulse Oximetry 97 97 Oxygen Delivery Method Room Air Room Air 02/14/22 10:15 02/14/22 10:15 02/14/22 10:20 Temperature Pulse Rate 135 H Respiratory Rate 46 H Blood Pressure 96/58 L 93/55 L Pulse Oximetry 97 Oxygen Delivery Method 02/14/22 10:20 02/14/22 10:25 02/14/22 10:25 Temperature Pulse Rate 135 H 137 H Respiratory Rate 46 H 46 H Blood Pressure 89/56 L Pulse Oximetry 98 100 Oxygen Delivery Method 02/14/22 10:30 02/14/22 10:30 02/14/22 10:35 Temperature Pulse Rate 140 H Respiratory Rate 38 H Blood Pressure 92/53 L 94/52 L Pulse Oximetry 96 Oxygen Delivery Method 02/14/22 10:35 02/14/22 10:40 02/14/22 10:40 Temperature Pulse Rate 137 H 138 H Respiratory Rate 45 H 43 H Blood Pressure 96/55 L Pulse Oximetry 99 97 Oxygen Delivery Method 02/14/22 10:45 02/14/22 10:45 02/14/22 10:50 Temperature Pulse Rate 136 H Respiratory Rate 46 H Blood Pressure 99/60 98/61 Pulse Oximetry 97 Oxygen Delivery Method 02/14/22 10:50 02/14/22 10:55 02/14/22 10:55 Temperature Pulse Rate 136 H 135 H Respiratory Rate 46 H 43 H Blood Pressure 98/63 Pulse Oximetry 95 96 Oxygen Delivery Method 02/14/22 11:00 02/14/22 11:00 Temperature Pulse Rate 135 H Respiratory Rate 40 H Blood Pressure 98/60 Pulse Oximetry 95 Oxygen Delivery Method Room Air Oxygen Delivery Method Room Air Narrative Exam Narrative: GEN: somnolent HEENT: tongue red from slurpees, PERRL NECK: trachea midline, no JVD CV: tachycardic, regular rhythm, no murmurs PULM: clear bilaterally ABD: soft, nontender, nondistended, no organomegaly EXT: warm and well perfused with no edema NEURO: disoriented, no focal deficits Objective Labs Result Diagrams: 02/14/22 11:35 02/14/22 14:42 Labs: Laboratory Results - last 24 hr 02/13/22 02/13/22 02/13/22 22:47 22:47 22:47 WBC 18.4 H RBC 5.89 H Hgb 17.3 H Hct 61.7 H* MCV 104.7 H MCH 29.3 MCHC 28.0 L RDW 15.2 H Plt Count 251 Neut % (Auto) 89.5 H Lymph % (Auto) 3.7 L Henry % (Auto) 6.6 Eos % (Auto) 0.1 L Baso % (Auto) 0.1 Neut # (Auto) 07863 H Lymph # (Auto) 700 L Henry # (Auto) 1200 H Eos # (Auto) 0 Baso # (Auto) 0 Total Counted Seg Neutrophils % Band Neutrophils % Lymphocytes % (Manual) Atypical Lymphs % Monocytes % (Manual) Metamyelocytes % Neutrophils # (Manual) RBC Morphology VBG pH VBG pCO2 VBG pO2 VBG HCO3 VBG Total CO2 VBG O2 Saturation VBG Base Excess Sodium 127 L Potassium 2.8 L Chloride 77 L Carbon Dioxide 19 L BUN 116 H* Creatinine 4.05 H Estimated GFR 14 L BUN/Creatinine Ratio 28.6 H Glucose 2188 H* Hemoglobin A1c Lactate Calcium 9.4 Magnesium Total Bilirubin 1.1 AST 21 ALT 21 Alkaline Phosphatase 125 Ammonia < 9 L Total Creatine Kinase 247 H CK-MB (CK-2) 1.60 CK-MB (CK-2) Rel Index 0.6 L Troponin I 0.034 Total Protein 7.6 Albumin 4.9 Globulin 2.7 Albumin/Globulin Ratio 1.8 Lipase 797 H TSH HCG, Quant Urine Color Urine Appearance Urine pH Ur Specific [place] Urine Protein Urine Glucose (UA) Urine Ketones Urine Occult Blood Urine Nitrate Urine Bilirubin Urine Urobilinogen Ur Leukocyte Esterase Urine RBC Urine WBC Ur Squamous Epith Cells Urine Bacteria Ur Culture Indicated? U Opiates 300ng/mL cut Ur Oxycodone Screen Urine Methadone Screen Ur Barbiturates Screen U Tricyclic Antidepress Ur Phencyclidine Scrn Ur Amphetamines Screen U Methamphetamines Scrn Ur MDMA Scrn (Ecstasy) U Benzodiazepines Scrn Urine Cocaine Screen U Marijuana (THC) Screen Ethyl Alcohol < 10 Ketones 7.83 H SARS-CoV-2 (PCR) 02/13/22 02/13/22 02/13/22 22:47 22:53 23:23 WBC RBC Hgb Hct MCV MCH MCHC RDW Plt Count Neut % (Auto) Lymph % (Auto) Henry % (Auto) Eos % (Auto) Baso % (Auto) Neut # (Auto) Lymph # (Auto) Henry # (Auto) Eos # (Auto) Baso # (Auto) Total Counted Seg Neutrophils % Band Neutrophils % Lymphocytes % (Manual) Atypical Lymphs % Monocytes % (Manual) Metamyelocytes % Neutrophils # (Manual) RBC Morphology VBG pH 7.19 L* VBG pCO2 60.5 H VBG pO2 39 VBG HCO3 23 VBG Total CO2 25 VBG O2 Saturation 60 L VBG Base Excess -5.0 L Sodium Potassium Chloride Carbon Dioxide BUN Creatinine Estimated GFR BUN/Creatinine Ratio Glucose Hemoglobin A1c Lactate Calcium Magnesium Total Bilirubin AST ALT Alkaline Phosphatase Ammonia Total Creatine Kinase CK-MB (CK-2) CK-MB (CK-2) Rel Index Troponin I Total Protein Albumin Globulin Albumin/Globulin Ratio Lipase TSH HCG, Quant < 2.4 Urine Color Urine Appearance Urine pH Ur Specific [place] Urine Protein Urine Glucose (UA) Urine Ketones Urine Occult Blood Urine Nitrate Urine Bilirubin Urine Urobilinogen Ur Leukocyte Esterase Urine RBC Urine WBC Ur Squamous Epith Cells Urine Bacteria Ur Culture Indicated? U Opiates 300ng/mL cut Negative Ur Oxycodone Screen Positive H Urine Methadone Screen Negative Ur Barbiturates Screen Negative U Tricyclic Antidepress Negative Ur Phencyclidine Scrn Negative Ur Amphetamines Screen Negative U Methamphetamines Scrn Negative Ur MDMA Scrn (Ecstasy) Negative U Benzodiazepines Scrn Negative Urine Cocaine Screen Negative U Marijuana (THC) Screen Negative Ethyl Alcohol Ketones SARS-CoV-2 (PCR) 02/13/22 02/13/22 02/13/22 23:31 23:54 23:54 WBC RBC Hgb Hct MCV MCH MCHC RDW Plt Count Neut % (Auto) Lymph % (Auto) Henry % (Auto) Eos % (Auto) Baso % (Auto) Neut # (Auto) Lymph # (Auto) Henry # (Auto) Eos # (Auto) Baso # (Auto) Total Counted Seg Neutrophils % Band Neutrophils % Lymphocytes % (Manual) Atypical Lymphs % Monocytes % (Manual) Metamyelocytes % Neutrophils # (Manual) RBC Morphology VBG pH VBG pCO2 VBG pO2 VBG HCO3 VBG Total CO2 VBG O2 Saturation VBG Base Excess Sodium 131 L Potassium 2.8 L Chloride 89 L Carbon Dioxide 16 L BUN 110 H* Creatinine 3.75 H Estimated GFR 16 L BUN/Creatinine Ratio 29.3 H Glucose 2082 H* Hemoglobin A1c Lactate 1.4 Calcium 8.2 L Magnesium Total Bilirubin AST ALT Alkaline Phosphatase Ammonia Total Creatine Kinase CK-MB (CK-2) CK-MB (CK-2) Rel Index Troponin I Total Protein Albumin Globulin Albumin/Globulin Ratio Lipase TSH 0.53 HCG, Quant Urine Color Urine Appearance Urine pH Ur Specific [place] Urine Protein Urine Glucose (UA) Urine Ketones Urine Occult Blood Urine Nitrate Urine Bilirubin Urine Urobilinogen Ur Leukocyte Esterase Urine RBC Urine WBC Ur Squamous Epith Cells Urine Bacteria Ur Culture Indicated? U Opiates 300ng/mL cut Ur Oxycodone Screen Urine Methadone Screen Ur Barbiturates Screen U Tricyclic Antidepress Ur Phencyclidine Scrn Ur Amphetamines Screen U Methamphetamines Scrn Ur MDMA Scrn (Ecstasy) U Benzodiazepines Scrn Urine Cocaine Screen U Marijuana (THC) Screen Ethyl Alcohol Ketones SARS-CoV-2 (PCR) 02/14/22 02/14/22 02/14/22 01:32 01:32 01:35 WBC RBC Hgb Hct MCV MCH MCHC RDW Plt Count Neut % (Auto) Lymph % (Auto) Henry % (Auto) Eos % (Auto) Baso % (Auto) Neut # (Auto) Lymph # (Auto) Henry # (Auto) Eos # (Auto) Baso # (Auto) Total Counted Seg Neutrophils % Band Neutrophils % Lymphocytes % (Manual) Atypical Lymphs % Monocytes % (Manual) Metamyelocytes % Neutrophils # (Manual) RBC Morphology VBG pH 7.13 L* VBG pCO2 54.6 H VBG pO2 62 H VBG HCO3 18 L VBG Total CO2 20 L VBG O2 Saturation 83 H VBG Base Excess -11.0 L Sodium 136 L Potassium 3.0 L Chloride 94 L Carbon Dioxide 17 L BUN 109 H* Creatinine 3.64 H Estimated GFR 16 L BUN/Creatinine Ratio 29.9 H Glucose 1920 H* Hemoglobin A1c Lactate 1.3 Calcium 8.0 L Magnesium Total Bilirubin 0.7 AST 17 ALT 18 Alkaline Phosphatase 97 Ammonia Total Creatine Kinase CK-MB (CK-2) CK-MB (CK-2) Rel Index Troponin I Total Protein 6.1 L Albumin 3.9 Globulin 2.2 Albumin/Globulin Ratio 1.8 Lipase TSH HCG, Quant Urine Color Urine Appearance Urine pH Ur Specific [place] Urine Protein Urine Glucose (UA) Urine Ketones Urine Occult Blood Urine Nitrate Urine Bilirubin Urine Urobilinogen Ur Leukocyte Esterase Urine RBC Urine WBC Ur Squamous Epith Cells Urine Bacteria Ur Culture Indicated? U Opiates 300ng/mL cut Ur Oxycodone Screen Urine Methadone Screen Ur Barbiturates Screen U Tricyclic Antidepress Ur Phencyclidine Scrn Ur Amphetamines Screen U Methamphetamines Scrn Ur MDMA Scrn (Ecstasy) U Benzodiazepines Scrn Urine Cocaine Screen U Marijuana (THC) Screen Ethyl Alcohol Ketones SARS-CoV-2 (PCR) 02/14/22 02/14/22 02/14/22 01:58 05:00 07:33 WBC 18.1 H RBC 5.51 H Hgb 15.6 Hct 49.4 H MCV 89.6 D MCH 28.3 MCHC 31.6 D RDW 13.7 Plt Count 232 Neut % (Auto) Not Reportable Lymph % (Auto) Not Reportable Henry % (Auto) Not Reportable Eos % (Auto) Not Reportable Baso % (Auto) Not Reportable Neut # (Auto) Lymph # (Auto) Not Reportable Henry # (Auto) Not Reportable Eos # (Auto) Baso # (Auto) Not Reportable Total Counted 100 Seg Neutrophils % 75.0 H Band Neutrophils % 8.0 H Lymphocytes % (Manual) 9.0 L Atypical Lymphs % 1.0 H Monocytes % (Manual) 6.0 Metamyelocytes % 1.0 H Neutrophils # (Manual) 98281 H RBC Morphology Normal morphology VBG pH VBG pCO2 VBG pO2 VBG HCO3 VBG Total CO2 VBG O2 Saturation VBG Base Excess Sodium 144 Potassium 2.8 L Chloride 103 Carbon Dioxide 20 L BUN 99 H Creatinine 2.97 H Estimated GFR 21 L BUN/Creatinine Ratio 33.3 H Glucose 1456 H* Hemoglobin A1c Lactate Calcium 8.7 Magnesium Total Bilirubin AST ALT Alkaline Phosphatase Ammonia Total Creatine Kinase CK-MB (CK-2) CK-MB (CK-2) Rel Index Troponin I Total Protein Albumin Globulin Albumin/Globulin Ratio Lipase TSH HCG, Quant Urine Color Urine Appearance Urine pH Ur Specific [place] Urine Protein Urine Glucose (UA) Urine Ketones Urine Occult Blood Urine Nitrate Urine Bilirubin Urine Urobilinogen Ur Leukocyte Esterase Urine RBC Urine WBC Ur Squamous Epith Cells Urine Bacteria Ur Culture Indicated? U Opiates 300ng/mL cut Ur Oxycodone Screen Urine Methadone Screen Ur Barbiturates Screen U Tricyclic Antidepress Ur Phencyclidine Scrn Ur Amphetamines Screen U Methamphetamines Scrn Ur MDMA Scrn (Ecstasy) U Benzodiazepines Scrn Urine Cocaine Screen U Marijuana (THC) Screen Ethyl Alcohol Ketones SARS-CoV-2 (PCR) Negative 02/14/22 02/14/22 02/14/22 07:33 07:33 07:33 WBC RBC Hgb Hct MCV MCH MCHC RDW Plt Count Neut % (Auto) Lymph % (Auto) Henry % (Auto) Eos % (Auto) Baso % (Auto) Neut # (Auto) Lymph # (Auto) Henry # (Auto) Eos # (Auto) Baso # (Auto) Total Counted Seg Neutrophils % Band Neutrophils % Lymphocytes % (Manual) Atypical Lymphs % Monocytes % (Manual) Metamyelocytes % Neutrophils # (Manual) RBC Morphology VBG pH VBG pCO2 VBG pO2 VBG HCO3 VBG Total CO2 VBG O2 Saturation VBG Base Excess Sodium 146 H Potassium 3.3 L Chloride 106 Carbon Dioxide 23 BUN 102 H Creatinine 2.83 H Estimated GFR 22 L BUN/Creatinine Ratio 36.0 H Glucose 1200 H* Hemoglobin A1c 12.3 H Lactate Calcium 8.3 L Magnesium 4.0 H Total Bilirubin AST ALT Alkaline Phosphatase Ammonia Total Creatine Kinase CK-MB (CK-2) CK-MB (CK-2) Rel Index Troponin I Total Protein Albumin Globulin Albumin/Globulin Ratio Lipase TSH HCG, Quant Urine Color Urine Appearance Urine pH Ur Specific [place] Urine Protein Urine Glucose (UA) Urine Ketones Urine Occult Blood Urine Nitrate Urine Bilirubin Urine Urobilinogen Ur Leukocyte Esterase Urine RBC Urine WBC Ur Squamous Epith Cells Urine Bacteria Ur Culture Indicated? U Opiates 300ng/mL cut Ur Oxycodone Screen Urine Methadone Screen Ur Barbiturates Screen U Tricyclic Antidepress Ur Phencyclidine Scrn Ur Amphetamines Screen U Methamphetamines Scrn Ur MDMA Scrn (Ecstasy) U Benzodiazepines Scrn Urine Cocaine Screen U Marijuana (THC) Screen Ethyl Alcohol Ketones SARS-CoV-2 (PCR) 02/14/22 02/14/22 02/14/22 08:51 11:35 11:35 WBC 19.8 H RBC 5.28 H Hgb 15.0 Hct 46.5 H MCV 88.0 MCH 28.5 MCHC 32.3 RDW 13.6 Plt Count 257 Neut % (Auto) Not Reportable Lymph % (Auto) Not Reportable Henry % (Auto) Not Reportable Eos % (Auto) Not Reportable Baso % (Auto) Not Reportable Neut # (Auto) Lymph # (Auto) Not Reportable Henry # (Auto) Not Reportable Eos # (Auto) Baso # (Auto) Not Reportable Total Counted Seg Neutrophils % Band Neutrophils % Lymphocytes % (Manual) Atypical Lymphs % Monocytes % (Manual) Metamyelocytes % Neutrophils # (Manual) RBC Morphology VBG pH VBG pCO2 VBG pO2 VBG HCO3 VBG Total CO2 VBG O2 Saturation VBG Base Excess Sodium 145 Potassium 4.5 D Chloride 107 Carbon Dioxide 19 L BUN 95 H Creatinine 2.65 H Estimated GFR 24 L BUN/Creatinine Ratio 35.8 H Glucose 1076 H* Hemoglobin A1c Lactate Calcium 8.3 L Magnesium Total Bilirubin AST ALT Alkaline Phosphatase Ammonia Total Creatine Kinase CK-MB (CK-2) CK-MB (CK-2) Rel Index Troponin I Total Protein Albumin Globulin Albumin/Globulin Ratio Lipase TSH HCG, Quant Urine Color Yellow Urine Appearance Clear Urine pH 5.5 Ur Specific [place] <=1.005 Urine Protein 2+ H Urine Glucose (UA) 2+ H Urine Ketones Trace H Urine Occult Blood 2+ H Urine Nitrate Negative Urine Bilirubin Negative Urine Urobilinogen 0.2 Ur Leukocyte Esterase Negative Urine RBC 5-10/hpf H Urine WBC None seen Ur Squamous Epith Cells 0-1 /hpf Urine Bacteria None seen Ur Culture Indicated? Cult not indicated U Opiates 300ng/mL cut Ur Oxycodone Screen Urine Methadone Screen Ur Barbiturates Screen U Tricyclic Antidepress Ur Phencyclidine Scrn Ur Amphetamines Screen U Methamphetamines Scrn Ur MDMA Scrn (Ecstasy) U Benzodiazepines Scrn Urine Cocaine Screen U Marijuana (THC) Screen Ethyl Alcohol Ketones SARS-CoV-2 (PCR) Assessment & Plan Assessment & Plan narrative: # acute DKA vs HHS -glucose 2188 on admission, improved to 889 with insulin drip -gap initially 31 and currently 17, ketones positive -continue insulin drip until gap closes -q4h BMPs -replace K as needed per protocol # hypovolemic vs septic shock -likely hypovolemic given patient's severe hypernatremia, cannot rule out sepsis with leukocytotis although afebrile -received 5L boluses and has D5W 150cc/hr running currently -continue levophed and titrate down as able -blood cultures pending -continue vanc, cefepime and acyclovir # acute encephalopathy -likely DKA/HHS, however meningitis cannot be ruled out -abx as above -will attempt LP -precedex low dose for agitation # hypernatremia -Na 151 and corrected to 164 with hyperglycemia -D5W 150cc/hr # THANG -Cr 4.05 on admission, currently 2.21 -likely prerenal due to hypovolemia -IVF as above # type 1 diabetes -A1c 12.3% -insulin drip as above I spent a total of 35 minutes of critical care time on this patient's care today; this time is exclusive of procedural time. Code status is full code. COVID negative. DVT prophylaxis with SCDs. Proxy is mother Pippa Garcia. I have reviewed home meds and used all available resources to reconcile the home meds. Time Spent With Patient Critical Care time: I spent a total of [] minutes of critical care time on this patient's care today; this time is exclusive of procedural time.
[2022-02-14 12:27] LABS: Neutrophils Absolute Manual 17820 /uL (3000-5900); Total Cells Counted 100
[2022-02-14 12:28] LABS: RBC Morphology Normal Morphology
--- NOTE | 2022-02-14 12:33 | PM.CN.EICU ---
History of Present Illness Consult details IF CAMERA ACTIVATED, patient seen via real-time interactive audiovisual communication: Camera activated Chief complaint: Abd. 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 EMS found patient minimally responsive, POC > 500 and BP low. Labs consistent with DKA and HHS (Gluose was 2188, THANG, and acute pancreatitis. Patient given IVF and started on insulin drip in ER but it was stopped at midnight last night because there were concerns her BG was dropping to quickly. Patient got 6.4 L of IVF in and put out 2.4 L of urine but her urine output has only been 175 cc since in the last 4 hours. Pt. arrived to ICU tachy (HR 130s) with borderline low BP (90s/50s) despite NE drip at 10 mcg/min. Lipase > 700. ABD CT showed inflammatory changes with generalized fatty stranding involving R upper quadrant. Since hospital presentation, patient's BG has gone down from 2188 to 1076 and AG reduced from 31 to 19. Difficult to asses patient's mental status as she got a dose of Ketamine and ativan in ER at midnight last night. ROS: Unable to obtain review of system from patient as she is lethargic. [facility] Social History household members: family Smoking Status: Never smoker alcohol intake: current Comment: Social History: + marijuana, occasional alcohol use Current Medications Current Medications Medications: Visit Medications (administered) Generic Name Dose Route Start Last Admin Trade Name Freq PRN Reason Stop Dose Admin Insulin Human Regular 100 unit 100 mls @ 6 mls/hr 02/13/22 23:45 02/14/22 05:52 / Sodium Chloride IV 0 mls/hr TITRATE OG Titration Protocol NOREPINEPHRINE BITARTRATE/D5W 4 mg in 250 mls @ 30 mls/hr 02/14/22 01:29 02/14/22 10:59 Levophed IV 10 mcg/min TITRATE OG 37.5 mls/hr Administration Protocol 8 MCG/MIN Sodium Chloride 1,000 mls @ 150 mls/hr 02/14/22 01:45 02/14/22 09:28 Normal Saline 0.9% IV Infused CONT OG Infusion Lactated Ringer's 1,000 mls @ 200 mls/hr 02/14/22 07:00 02/14/22 12:28 Lactated Ringers IV Infused CONT OG Infusion Piperacillin Sod/Tazobactam 100 mls @ 25 mls/hr 02/14/22 10:00 02/14/22 10:26 Sod 3.375 gm/ Sodium Chloride IV 25 mls/hr Q8H OG Administration Exam Vital Signs (past 8 hours): - 02/14/22 04:35 02/14/22 04:35 02/14/22 04:40 Pulse Rate 124 H Respiratory Rate 40 H Blood Pressure 111/68 112/71 Pulse Oximetry 99 Oxygen Delivery Method 02/14/22 04:40 02/14/22 04:45 02/14/22 04:45 Pulse Rate 126 H 127 H Respiratory Rate 40 H 40 H Blood Pressure 105/78 Pulse Oximetry 98 98 Oxygen Delivery Method 02/14/22 04:50 02/14/22 04:50 02/14/22 04:55 Pulse Rate 126 H Respiratory Rate 40 H Blood Pressure 107/74 103/70 Pulse Oximetry 98 Oxygen Delivery Method 02/14/22 04:55 02/14/22 05:00 02/14/22 05:00 Pulse Rate 126 H 128 H Respiratory Rate 40 H 45 H Blood Pressure 104/67 Pulse Oximetry 98 98 Oxygen Delivery Method 02/14/22 05:05 02/14/22 05:05 02/14/22 05:10 Pulse Rate 128 H Respiratory Rate 41 H Blood Pressure 105/72 106/71 Pulse Oximetry 97 Oxygen Delivery Method 02/14/22 05:10 02/14/22 05:15 02/14/22 05:15 Pulse Rate 127 H 128 H Respiratory Rate 43 H 42 H Blood Pressure 107/65 Pulse Oximetry 97 99 Oxygen Delivery Method 02/14/22 05:20 02/14/22 05:20 02/14/22 05:25 Pulse Rate 128 H Respiratory Rate 43 H Blood Pressure 103/66 99/74 Pulse Oximetry 99 Oxygen Delivery Method 02/14/22 05:25 02/14/22 05:30 02/14/22 05:30 Pulse Rate 128 H 129 H Respiratory Rate 39 H 44 H Blood Pressure 99/74 Pulse Oximetry 98 99 Oxygen Delivery Method 02/14/22 05:35 02/14/22 05:35 02/14/22 05:40 Pulse Rate 128 H Respiratory Rate 42 H Blood Pressure 100/73 99/72 Pulse Oximetry 99 Oxygen Delivery Method 02/14/22 05:40 02/14/22 05:45 02/14/22 05:45 Pulse Rate 129 H 128 H Respiratory Rate 47 H 41 H Blood Pressure 99/72 Pulse Oximetry 99 100 Oxygen Delivery Method 02/14/22 05:50 02/14/22 05:50 02/14/22 05:55 Pulse Rate 130 H Respiratory Rate 44 H Blood Pressure 102/72 99/72 Pulse Oximetry 100 Oxygen Delivery Method 02/14/22 05:55 02/14/22 06:00 02/14/22 06:00 Pulse Rate 129 H 130 H Respiratory Rate 42 H 42 H Blood Pressure 103/79 Pulse Oximetry 100 98 Oxygen Delivery Method 02/14/22 06:05 02/14/22 06:05 02/14/22 06:10 Pulse Rate 132 H Respiratory Rate 42 H Blood Pressure 96/70 93/65 Pulse Oximetry 99 Oxygen Delivery Method 02/14/22 06:10 02/14/22 06:15 02/14/22 06:15 Pulse Rate 133 H 134 H Respiratory Rate 41 H 43 H Blood Pressure 93/62 Pulse Oximetry 99 99 Oxygen Delivery Method 02/14/22 06:20 02/14/22 06:20 02/14/22 06:25 Pulse Rate 133 H Respiratory Rate 41 H Blood Pressure 87/55 L 82/57 L Pulse Oximetry 100 Oxygen Delivery Method 02/14/22 06:25 02/14/22 06:30 02/14/22 06:30 Pulse Rate 133 H 134 H Respiratory Rate 41 H 42 H Blood Pressure 81/50 L Pulse Oximetry 98 100 Oxygen Delivery Method 02/14/22 06:35 02/14/22 06:35 02/14/22 06:40 Pulse Rate 134 H Respiratory Rate 43 H Blood Pressure 81/51 L 84/52 L Pulse Oximetry 95 Oxygen Delivery Method 02/14/22 06:40 02/14/22 06:45 02/14/22 06:45 Pulse Rate 132 H 133 H Respiratory Rate 48 H 44 H Blood Pressure 83/55 L Pulse Oximetry 97 99 Oxygen Delivery Method 02/14/22 06:50 02/14/22 06:50 02/14/22 06:55 Pulse Rate 134 H Respiratory Rate 42 H Blood Pressure 83/54 L 82/54 L Pulse Oximetry 100 Oxygen Delivery Method 02/14/22 06:55 02/14/22 07:00 02/14/22 07:00 Pulse Rate 134 H 134 H Respiratory Rate 31 H 44 H Blood Pressure 82/53 L Pulse Oximetry 100 100 Oxygen Delivery Method 02/14/22 07:05 02/14/22 07:05 02/14/22 07:10 Pulse Rate 134 H Respiratory Rate 43 H Blood Pressure 80/50 L 82/52 L Pulse Oximetry 100 Oxygen Delivery Method 02/14/22 07:10 02/14/22 07:15 02/14/22 07:15 Pulse Rate 135 H 135 H Respiratory Rate 35 H 37 H Blood Pressure 76/51 L Pulse Oximetry 100 100 Oxygen Delivery Method Room Air Room Air 02/14/22 07:20 02/14/22 07:20 02/14/22 07:25 Pulse Rate 132 H Respiratory Rate 37 H Blood Pressure 79/54 L 83/54 L Pulse Oximetry 100 Oxygen Delivery Method Room Air 02/14/22 07:25 02/14/22 07:30 02/14/22 07:30 Pulse Rate 134 H 134 H Respiratory Rate 37 H 37 H Blood Pressure 89/57 L Pulse Oximetry 100 100 Oxygen Delivery Method Room Air Room Air 02/14/22 07:35 02/14/22 07:35 02/14/22 07:40 Pulse Rate 134 H Respiratory Rate 35 H Blood Pressure 84/53 L 88/60 L Pulse Oximetry 100 Oxygen Delivery Method Room Air 02/14/22 07:40 02/14/22 07:45 02/14/22 07:45 Pulse Rate 135 H 135 H Respiratory Rate 31 H 45 H Blood Pressure 93/62 Pulse Oximetry 100 100 Oxygen Delivery Method Room Air 02/14/22 07:50 02/14/22 07:50 02/14/22 07:55 Pulse Rate 135 H Respiratory Rate 45 H Blood Pressure 89/57 L 88/53 L Pulse Oximetry 99 Oxygen Delivery Method 02/14/22 07:55 02/14/22 08:00 02/14/22 08:00 Pulse Rate 134 H 134 H Respiratory Rate 36 H 45 H Blood Pressure 87/56 L Pulse Oximetry 99 98 Oxygen Delivery Method 02/14/22 08:05 02/14/22 08:05 02/14/22 08:10 Pulse Rate 138 H Respiratory Rate 44 H Blood Pressure 89/54 L 86/57 L Pulse Oximetry 98 Oxygen Delivery Method 02/14/22 08:10 02/14/22 08:15 02/14/22 08:15 Pulse Rate 138 H 138 H Respiratory Rate 46 H 44 H Blood Pressure 87/55 L Pulse Oximetry 96 99 Oxygen Delivery Method 02/14/22 08:19 02/14/22 08:19 02/14/22 08:20 Pulse Rate 138 H Respiratory Rate 45 H Blood Pressure 85/54 L 82/53 L Pulse Oximetry 98 Oxygen Delivery Method Room Air 02/14/22 08:20 02/14/22 08:25 02/14/22 08:25 Pulse Rate 137 H 135 H Respiratory Rate 45 H 45 H Blood Pressure 83/54 L Pulse Oximetry 96 96 Oxygen Delivery Method 02/14/22 08:30 02/14/22 08:30 02/14/22 08:35 Pulse Rate 137 H Respiratory Rate 45 H Blood Pressure 90/52 L 85/50 L Pulse Oximetry 97 Oxygen Delivery Method 02/14/22 08:35 02/14/22 08:40 02/14/22 08:40 Pulse Rate 134 H 135 H Respiratory Rate 43 H 45 H Blood Pressure 90/55 L Pulse Oximetry 97 97 Oxygen Delivery Method 02/14/22 08:45 02/14/22 08:45 02/14/22 08:50 Pulse Rate 135 H Respiratory Rate 45 H Blood Pressure 93/53 L 92/51 L Pulse Oximetry 97 Oxygen Delivery Method 02/14/22 08:50 02/14/22 08:55 02/14/22 08:55 Pulse Rate 135 H 137 H Respiratory Rate 44 H 47 H Blood Pressure 93/52 L Pulse Oximetry 95 96 Oxygen Delivery Method 02/14/22 09:00 02/14/22 09:01 02/14/22 09:01 Pulse Rate 135 H 137 H Respiratory Rate 43 H 41 H Blood Pressure 93/59 L Pulse Oximetry 97 97 Oxygen Delivery Method 02/14/22 09:05 02/14/22 09:05 02/14/22 09:10 Pulse Rate 137 H Respiratory Rate 47 H Blood Pressure 93/58 L 89/57 L Pulse Oximetry 99 Oxygen Delivery Method 02/14/22 09:10 02/14/22 09:15 02/14/22 09:15 Pulse Rate 133 H 137 H Respiratory Rate 45 H 38 H Blood Pressure 91/59 L Pulse Oximetry 98 97 Oxygen Delivery Method 02/14/22 09:20 02/14/22 09:20 02/14/22 09:25 Pulse Rate 136 H Respiratory Rate 45 H Blood Pressure 93/61 92/57 L Pulse Oximetry 97 Oxygen Delivery Method Room Air 02/14/22 09:25 02/14/22 09:30 02/14/22 09:30 Pulse Rate 135 H 135 H Respiratory Rate 47 H 44 H Blood Pressure 96/60 Pulse Oximetry 97 97 Oxygen Delivery Method 02/14/22 09:35 02/14/22 09:35 02/14/22 09:40 Pulse Rate 135 H Respiratory Rate 45 H Blood Pressure 93/55 L 94/59 L Pulse Oximetry 97 Oxygen Delivery Method 02/14/22 09:40 02/14/22 09:45 02/14/22 09:45 Pulse Rate 137 H 136 H Respiratory Rate 49 H 45 H Blood Pressure 95/61 Pulse Oximetry 97 97 Oxygen Delivery Method 02/14/22 09:50 02/14/22 09:50 02/14/22 09:55 Pulse Rate 138 H Respiratory Rate 43 H Blood Pressure 89/55 L 92/50 L Pulse Oximetry 97 Oxygen Delivery Method 02/14/22 09:55 02/14/22 10:00 02/14/22 10:00 Pulse Rate 135 H 135 H Respiratory Rate 45 H 44 H Blood Pressure 98/52 L Pulse Oximetry 96 96 Oxygen Delivery Method 02/14/22 10:05 02/14/22 10:05 02/14/22 10:10 Pulse Rate 135 H Respiratory Rate 45 H Blood Pressure 97/50 L 103/58 L Pulse Oximetry 97 Oxygen Delivery Method Room Air 02/14/22 10:10 02/14/22 10:15 02/14/22 10:15 Pulse Rate 138 H 135 H Respiratory Rate 49 H 46 H Blood Pressure 96/58 L Pulse Oximetry 97 97 Oxygen Delivery Method Room Air 02/14/22 10:20 02/14/22 10:20 02/14/22 10:25 Pulse Rate 135 H Respiratory Rate 46 H Blood Pressure 93/55 L 89/56 L Pulse Oximetry 98 Oxygen Delivery Method 02/14/22 10:25 02/14/22 10:30 02/14/22 10:30 Pulse Rate 137 H 140 H Respiratory Rate 46 H 38 H Blood Pressure 92/53 L Pulse Oximetry 100 96 Oxygen Delivery Method 02/14/22 10:35 02/14/22 10:35 02/14/22 10:40 Pulse Rate 137 H Respiratory Rate 45 H Blood Pressure 94/52 L 96/55 L Pulse Oximetry 99 Oxygen Delivery Method 02/14/22 10:40 02/14/22 10:45 02/14/22 10:45 Pulse Rate 138 H 136 H Respiratory Rate 43 H 46 H Blood Pressure 99/60 Pulse Oximetry 97 97 Oxygen Delivery Method 02/14/22 10:50 02/14/22 10:50 02/14/22 10:55 Pulse Rate 136 H Respiratory Rate 46 H Blood Pressure 98/61 98/63 Pulse Oximetry 95 Oxygen Delivery Method 02/14/22 10:55 02/14/22 11:00 02/14/22 11:00 Pulse Rate 135 H 135 H Respiratory Rate 43 H 40 H Blood Pressure 98/60 Pulse Oximetry 96 95 Oxygen Delivery Method Room Air Oxygen Delivery Method Room Air Narrative Exam Narrative: Patient seen over two way audio visual system. She appears very lethargic. Unable to get her to answer any of my questions. Objective Labs Result Diagrams: 02/14/22 11:35 02/14/22 11:35 Labs: Laboratory Results - last 24 hr 02/13/22 02/13/22 02/13/22 22:47 22:47 22:47 WBC 18.4 H RBC 5.89 H Hgb 17.3 H Hct 61.7 H* MCV 104.7 H MCH 29.3 MCHC 28.0 L RDW 15.2 H Plt Count 251 Neut % (Auto) 89.5 H Lymph % (Auto) 3.7 L Stephens % (Auto) 6.6 Eos % (Auto) 0.1 L Baso % (Auto) 0.1 Neut # (Auto) 72710 H Lymph # (Auto) 700 L Stephens # (Auto) 1200 H Eos # (Auto) 0 Baso # (Auto) 0 Total Counted Seg Neutrophils % Band Neutrophils % Lymphocytes % (Manual) Atypical Lymphs % Monocytes % (Manual) Metamyelocytes % Neutrophils # (Manual) RBC Morphology VBG pH VBG pCO2 VBG pO2 VBG HCO3 VBG Total CO2 VBG O2 Saturation VBG Base Excess Sodium 127 L Potassium 2.8 L Chloride 77 L Carbon Dioxide 19 L BUN 116 H* Creatinine 4.05 H Estimated GFR 14 L BUN/Creatinine Ratio 28.6 H Glucose 2188 H* Hemoglobin A1c Lactate Calcium 9.4 Magnesium Total Bilirubin 1.1 AST 21 ALT 21 Alkaline Phosphatase 125 Ammonia < 9 L Total Creatine Kinase 247 H CK-MB (CK-2) 1.60 CK-MB (CK-2) Rel Index 0.6 L Troponin I 0.034 Total Protein 7.6 Albumin 4.9 Globulin 2.7 Albumin/Globulin Ratio 1.8 Lipase 797 H TSH HCG, Quant Urine Color Urine Appearance Urine pH Ur Specific [place] Urine Protein Urine Glucose (UA) Urine Ketones Urine Occult Blood Urine Nitrate Urine Bilirubin Urine Urobilinogen Ur Leukocyte Esterase Urine RBC Urine WBC Ur Squamous Epith Cells Urine Bacteria Ur Culture Indicated? U Opiates 300ng/mL cut Ur Oxycodone Screen Urine Methadone Screen Ur Barbiturates Screen U Tricyclic Antidepress Ur Phencyclidine Scrn Ur Amphetamines Screen U Methamphetamines Scrn Ur MDMA Scrn (Ecstasy) U Benzodiazepines Scrn Urine Cocaine Screen U Marijuana (THC) Screen Ethyl Alcohol < 10 Ketones 7.83 H SARS-CoV-2 (PCR) 02/13/22 02/13/22 02/13/22 22:47 22:53 23:23 WBC RBC Hgb Hct MCV MCH MCHC RDW Plt Count Neut % (Auto) Lymph % (Auto) Stephens % (Auto) Eos % (Auto) Baso % (Auto) Neut # (Auto) Lymph # (Auto) Stephens # (Auto) Eos # (Auto) Baso # (Auto) Total Counted Seg Neutrophils % Band Neutrophils % Lymphocytes % (Manual) Atypical Lymphs % Monocytes % (Manual) Metamyelocytes % Neutrophils # (Manual) RBC Morphology VBG pH 7.19 L* VBG pCO2 60.5 H VBG pO2 39 VBG HCO3 23 VBG Total CO2 25 VBG O2 Saturation 60 L VBG Base Excess -5.0 L Sodium Potassium Chloride Carbon Dioxide BUN Creatinine Estimated GFR BUN/Creatinine Ratio Glucose Hemoglobin A1c Lactate Calcium Magnesium Total Bilirubin AST ALT Alkaline Phosphatase Ammonia Total Creatine Kinase CK-MB (CK-2) CK-MB (CK-2) Rel Index Troponin I Total Protein Albumin Globulin Albumin/Globulin Ratio Lipase TSH HCG, Quant < 2.4 Urine Color Urine Appearance Urine pH Ur Specific [place] Urine Protein Urine Glucose (UA) Urine Ketones Urine Occult Blood Urine Nitrate Urine Bilirubin Urine Urobilinogen Ur Leukocyte Esterase Urine RBC Urine WBC Ur Squamous Epith Cells Urine Bacteria Ur Culture Indicated? U Opiates 300ng/mL cut Negative Ur Oxycodone Screen Positive H Urine Methadone Screen Negative Ur Barbiturates Screen Negative U Tricyclic Antidepress Negative Ur Phencyclidine Scrn Negative Ur Amphetamines Screen Negative U Methamphetamines Scrn Negative Ur MDMA Scrn (Ecstasy) Negative U Benzodiazepines Scrn Negative Urine Cocaine Screen Negative U Marijuana (THC) Screen Negative Ethyl Alcohol Ketones SARS-CoV-2 (PCR) 02/13/22 02/13/22 02/13/22 23:31 23:54 23:54 WBC RBC Hgb Hct MCV MCH MCHC RDW Plt Count Neut % (Auto) Lymph % (Auto) Stephens % (Auto) Eos % (Auto) Baso % (Auto) Neut # (Auto) Lymph # (Auto) Stephens # (Auto) Eos # (Auto) Baso # (Auto) Total Counted Seg Neutrophils % Band Neutrophils % Lymphocytes % (Manual) Atypical Lymphs % Monocytes % (Manual) Metamyelocytes % Neutrophils # (Manual) RBC Morphology VBG pH VBG pCO2 VBG pO2 VBG HCO3 VBG Total CO2 VBG O2 Saturation VBG Base Excess Sodium 131 L Potassium 2.8 L Chloride 89 L Carbon Dioxide 16 L BUN 110 H* Creatinine 3.75 H Estimated GFR 16 L BUN/Creatinine Ratio 29.3 H Glucose 2082 H* Hemoglobin A1c Lactate 1.4 Calcium 8.2 L Magnesium Total Bilirubin AST ALT Alkaline Phosphatase Ammonia Total Creatine Kinase CK-MB (CK-2) CK-MB (CK-2) Rel Index Troponin I Total Protein Albumin Globulin Albumin/Globulin Ratio Lipase TSH 0.53 HCG, Quant Urine Color Urine Appearance Urine pH Ur Specific [place] Urine Protein Urine Glucose (UA) Urine Ketones Urine Occult Blood Urine Nitrate Urine Bilirubin Urine Urobilinogen Ur Leukocyte Esterase Urine RBC Urine WBC Ur Squamous Epith Cells Urine Bacteria Ur Culture Indicated? U Opiates 300ng/mL cut Ur Oxycodone Screen Urine Methadone Screen Ur Barbiturates Screen U Tricyclic Antidepress Ur Phencyclidine Scrn Ur Amphetamines Screen U Methamphetamines Scrn Ur MDMA Scrn (Ecstasy) U Benzodiazepines Scrn Urine Cocaine Screen U Marijuana (THC) Screen Ethyl Alcohol Ketones SARS-CoV-2 (PCR) 02/14/22 02/14/22 02/14/22 01:32 01:32 01:35 WBC RBC Hgb Hct MCV MCH MCHC RDW Plt Count Neut % (Auto) Lymph % (Auto) Stephens % (Auto) Eos % (Auto) Baso % (Auto) Neut # (Auto) Lymph # (Auto) Stephens # (Auto) Eos # (Auto) Baso # (Auto) Total Counted Seg Neutrophils % Band Neutrophils % Lymphocytes % (Manual) Atypical Lymphs % Monocytes % (Manual) Metamyelocytes % Neutrophils # (Manual) RBC Morphology VBG pH 7.13 L* VBG pCO2 54.6 H VBG pO2 62 H VBG HCO3 18 L VBG Total CO2 20 L VBG O2 Saturation 83 H VBG Base Excess -11.0 L Sodium 136 L Potassium 3.0 L Chloride 94 L Carbon Dioxide 17 L BUN 109 H* Creatinine 3.64 H Estimated GFR 16 L BUN/Creatinine Ratio 29.9 H Glucose 1920 H* Hemoglobin A1c Lactate 1.3 Calcium 8.0 L Magnesium Total Bilirubin 0.7 AST 17 ALT 18 Alkaline Phosphatase 97 Ammonia Total Creatine Kinase CK-MB (CK-2) CK-MB (CK-2) Rel Index Troponin I Total Protein 6.1 L Albumin 3.9 Globulin 2.2 Albumin/Globulin Ratio 1.8 Lipase TSH HCG, Quant Urine Color Urine Appearance Urine pH Ur Specific [place] Urine Protein Urine Glucose (UA) Urine Ketones Urine Occult Blood Urine Nitrate Urine Bilirubin Urine Urobilinogen Ur Leukocyte Esterase Urine RBC Urine WBC Ur Squamous Epith Cells Urine Bacteria Ur Culture Indicated? U Opiates 300ng/mL cut Ur Oxycodone Screen Urine Methadone Screen Ur Barbiturates Screen U Tricyclic Antidepress Ur Phencyclidine Scrn Ur Amphetamines Screen U Methamphetamines Scrn Ur MDMA Scrn (Ecstasy) U Benzodiazepines Scrn Urine Cocaine Screen U Marijuana (THC) Screen Ethyl Alcohol Ketones SARS-CoV-2 (PCR) 02/14/22 02/14/22 02/14/22 01:58 05:00 07:33 WBC 18.1 H RBC 5.51 H Hgb 15.6 Hct 49.4 H MCV 89.6 D MCH 28.3 MCHC 31.6 D RDW 13.7 Plt Count 232 Neut % (Auto) Not Reportable Lymph % (Auto) Not Reportable Stephens % (Auto) Not Reportable Eos % (Auto) Not Reportable Baso % (Auto) Not Reportable Neut # (Auto) Lymph # (Auto) Not Reportable Stephens # (Auto) Not Reportable Eos # (Auto) Baso # (Auto) Not Reportable Total Counted 100 Seg Neutrophils % 75.0 H Band Neutrophils % 8.0 H Lymphocytes % (Manual) 9.0 L Atypical Lymphs % 1.0 H Monocytes % (Manual) 6.0 Metamyelocytes % 1.0 H Neutrophils # (Manual) 62414 H RBC Morphology Normal morphology VBG pH VBG pCO2 VBG pO2 VBG HCO3 VBG Total CO2 VBG O2 Saturation VBG Base Excess Sodium 144 Potassium 2.8 L Chloride 103 Carbon Dioxide 20 L BUN 99 H Creatinine 2.97 H Estimated GFR 21 L BUN/Creatinine Ratio 33.3 H Glucose 1456 H* Hemoglobin A1c Lactate Calcium 8.7 Magnesium Total Bilirubin AST ALT Alkaline Phosphatase Ammonia Total Creatine Kinase CK-MB (CK-2) CK-MB (CK-2) Rel Index Troponin I Total Protein Albumin Globulin Albumin/Globulin Ratio Lipase TSH HCG, Quant Urine Color Urine Appearance Urine pH Ur Specific [place] Urine Protein Urine Glucose (UA) Urine Ketones Urine Occult Blood Urine Nitrate Urine Bilirubin Urine Urobilinogen Ur Leukocyte Esterase Urine RBC Urine WBC Ur Squamous Epith Cells Urine Bacteria Ur Culture Indicated? U Opiates 300ng/mL cut Ur Oxycodone Screen Urine Methadone Screen Ur Barbiturates Screen U Tricyclic Antidepress Ur Phencyclidine Scrn Ur Amphetamines Screen U Methamphetamines Scrn Ur MDMA Scrn (Ecstasy) U Benzodiazepines Scrn Urine Cocaine Screen U Marijuana (THC) Screen Ethyl Alcohol Ketones SARS-CoV-2 (PCR) Negative 02/14/22 02/14/22 02/14/22 07:33 07:33 07:33 WBC RBC Hgb Hct MCV MCH MCHC RDW Plt Count Neut % (Auto) Lymph % (Auto) Stephens % (Auto) Eos % (Auto) Baso % (Auto) Neut # (Auto) Lymph # (Auto) Stephens # (Auto) Eos # (Auto) Baso # (Auto) Total Counted Seg Neutrophils % Band Neutrophils % Lymphocytes % (Manual) Atypical Lymphs % Monocytes % (Manual) Metamyelocytes % Neutrophils # (Manual) RBC Morphology VBG pH VBG pCO2 VBG pO2 VBG HCO3 VBG Total CO2 VBG O2 Saturation VBG Base Excess Sodium 146 H Potassium 3.3 L Chloride 106 Carbon Dioxide 23 BUN 102 H Creatinine 2.83 H Estimated GFR 22 L BUN/Creatinine Ratio 36.0 H Glucose 1200 H* Hemoglobin A1c 12.3 H Lactate Calcium 8.3 L Magnesium 4.0 H Total Bilirubin AST ALT Alkaline Phosphatase Ammonia Total Creatine Kinase CK-MB (CK-2) CK-MB (CK-2) Rel Index Troponin I Total Protein Albumin Globulin Albumin/Globulin Ratio Lipase TSH HCG, Quant Urine Color Urine Appearance Urine pH Ur Specific [place] Urine Protein Urine Glucose (UA) Urine Ketones Urine Occult Blood Urine Nitrate Urine Bilirubin Urine Urobilinogen Ur Leukocyte Esterase Urine RBC Urine WBC Ur Squamous Epith Cells Urine Bacteria Ur Culture Indicated? U Opiates 300ng/mL cut Ur Oxycodone Screen Urine Methadone Screen Ur Barbiturates Screen U Tricyclic Antidepress Ur Phencyclidine Scrn Ur Amphetamines Screen U Methamphetamines Scrn Ur MDMA Scrn (Ecstasy) U Benzodiazepines Scrn Urine Cocaine Screen U Marijuana (THC) Screen Ethyl Alcohol Ketones SARS-CoV-2 (PCR) 02/14/22 02/14/22 02/14/22 08:51 11:35 11:35 WBC 19.8 H RBC 5.28 H Hgb 15.0 Hct 46.5 H MCV 88.0 MCH 28.5 MCHC 32.3 RDW 13.6 Plt Count 257 Neut % (Auto) Not Reportable Lymph % (Auto) Not Reportable Stephens % (Auto) Not Reportable Eos % (Auto) Not Reportable Baso % (Auto) Not Reportable Neut # (Auto) Lymph # (Auto) Not Reportable Stephens # (Auto) Not Reportable Eos # (Auto) Baso # (Auto) Not Reportable Total Counted 100 Seg Neutrophils % 81.0 H Band Neutrophils % 9.0 H Lymphocytes % (Manual) 4.0 L Atypical Lymphs % Monocytes % (Manual) 5.0 Metamyelocytes % 1.0 H Neutrophils # (Manual) 95325 H RBC Morphology Normal morphology VBG pH VBG pCO2 VBG pO2 VBG HCO3 VBG Total CO2 VBG O2 Saturation VBG Base Excess Sodium 145 Potassium 4.5 D Chloride 107 Carbon Dioxide 19 L BUN 95 H Creatinine 2.65 H Estimated GFR 24 L BUN/Creatinine Ratio 35.8 H Glucose 1076 H* Hemoglobin A1c Lactate Calcium 8.3 L Magnesium Total Bilirubin AST ALT Alkaline Phosphatase Ammonia Total Creatine Kinase CK-MB (CK-2) CK-MB (CK-2) Rel Index Troponin I Total Protein Albumin Globulin Albumin/Globulin Ratio Lipase TSH HCG, Quant Urine Color Yellow Urine Appearance Clear Urine pH 5.5 Ur Specific [place] <=1.005 Urine Protein 2+ H Urine Glucose (UA) 2+ H Urine Ketones Trace H Urine Occult Blood 2+ H Urine Nitrate Negative Urine Bilirubin Negative Urine Urobilinogen 0.2 Ur Leukocyte Esterase Negative Urine RBC 5-10/hpf H Urine WBC None seen Ur Squamous Epith Cells 0-1 /hpf Urine Bacteria None seen Ur Culture Indicated? 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 AMS probably encephalopathy secondary to HHS and DKA state. Pt. also got a dose of Ketamine and ativan last night -can consider dex drip if patient has agitated delirium CV: Bolus 2L of LR now given tachycardia, hypotension, and low urine output suggests low intravascular volume -titrate NE drip to keep [id number] Pulm: Pt. currently on RA wth pox 98-100%. ID: [email or web address] started for empiric coverage given shock and possible sepsis -check cultures Heme: daily cbc FEN/Renal: Cr improved from 3.75 to 2.65 since last night -will boluse 2 L of LR now and then based on repeat BMP will determine what to put patient on for maintenance fluid -monitor BMP q4H and correct any electrolyte abnormalities as needed Endo: -after fluid boluses given, will start insulin drip based on BG at that time -monitor BG q1H and adjust insulin drip as needed GI: -keep NPO -monitor lipase -check triglycerides to see if hypertriglycerdemia is cause of acute pancreatitis CCT spent 65 min Time Spent With Patient Critical Care time: I spent a total of [] minutes of critical care time on this patient's care today; this time is exclusive of procedural time.
[2022-02-14 13:08] LABS: Carbon Dioxide 19 mmol/L (22-32); HEMOLYSIS 20 (0-50)
[2022-02-14] MEDS: INSULIN DRIP PREMIX 100 UNIT/100 ML PLAST..BAG 6 UNIT IV (13:31)
[2022-02-14 13:39] LABS: Lipase 1285 U/L (23-300); Triglycerides 313 mg/dL (35-150)
[2022-02-14 15:17] LABS: BUN Creatinine Ratio 38.9 (6-22); Blood Urea Nitrogen 86 mg/dL (7-17); Chloride 113 mmol/L (98-107); Estimated Glomerular Filt Rate 29 mL/min (>60); HEMOLYSIS < 15 (0-50); Sodium 151 mmol/L (137-145)
[2022-02-14 15:36] LABS: Glucose 889 mg/dL (70-100)
--- NOTE | 2022-02-14 15:45 | PC.NURSE ---
Addendum entered by Isabel Monae R.N. 02/14/22 18:02: 1800 Called report to Bedside nurse at [facility] for room 645 D wing . Pt will be picked up by EMS running at lights and sirens. Will continue to monitor until pt is picked up. Original Note: Pt arrived via gurney, slide board used to move to bed, connected monitoring equipment, labs drawn via central line, Norepi, LR and insulin infusing as ordered. Tele department editor on monitor, new orders received, Dr Alvarado at bedside, pt in lethargic and non-verbal, pt able to pull at lines and turn herself independently. Mendoza patent and draining clear yellow urine, at this time pt has had a total of 5L of fluid boluses. Pt did state she wants her mom, repeated attempts to orient her to place and situation. Bed alarm on, call light within reach, Will continue to monitor
[2022-02-14 15:57] LABS: Carbon Dioxide 22 mmol/L (22-32)
[2022-02-14] MEDS: dexmedeTOMIDine in 0.9 % NaCL 400 MCG/100 ML PLAST..BAG IV (16:17)
[2022-02-14] MEDS: CEFEPIME 2 GM in SODIUM CHLORIDE 0.9% 100 ML IV (16:18)
[2022-02-14] MEDS: DEXTROSE 5% WATER 1,000 ML 150 ML IV (16:34)
--- NOTE | 2022-02-14 17:05 | P.DS_ITS ---
History of Present Illness History of Present Illness Date Patient Seen: 02/14/22 Time Patient Seen: 15:00 Chief complaint: Abd. Pain, lethargic Narrative: Nathan Garcia is a 31yo F with PMH of type 1 diabetes who presents with abd pain, NV, encephalopathic and with a glucose of 2188. Patient unable to provide history due to encephalopathy. Per ED notes patient went on a [place] partying for several days consuming alcohol then developing intractable NV and was only cosuming 12/03 slurpees for 5 days. Her mother noticed she was becoming increasingly lethargic, confused and with decreased responsiveness. Once in the ED patient found to have glucose of 2188, bicarb 19, elevated ketones and anion gap of 31. Cr 4.05, WBC 18.4, Hgb 17.3, and platelets 251. VBG with pH 7.19. Beta HCG negative. Utox positive for only oxycodone. Blood cultures were drawn and patient start on zosyn, which was subsequently changed to vanc and cefepime with acyclovir for possible meningitis. LP not obtained in ED. UA negative, CXR negative. CT abd pelvis with fat stranding and mod inflamm changed of RUQ but no definite pancreatitis. Lipase 797. Vitals initially 87/59, pulse 118 and RR 35. Levophed started at approx 01:40 on 02/14 after BP dropped to 83/52 and is currently running at 10mcg/hr. Current sodium 151 and glucose now 889 therefore corrected sodium of 164. Creatinine improved to 2.21. Patient awakens briefly and asking for her mom, but confused otherwise. Discharge Providers Provider Date of admission: 02/14/22 12:10 Discharge Date: 02/14/22 Primary care physician: Deann Woo MD Consults: 02/14/22 11:48 Consult to Hospitalist Service Stat Comment: Consulting Provider: Storm Alvarado Reason for consultation: DKA Has provider been notified: Yes 02/14/22 11:58 Consult to Tele-resolution specialist Routine Comment: Consulting Provider: Sharon [employer] Reason for consultation: Regulatory Affairs Coordinator services Has provider been notified: Yes Discharge provider: Storm Alvarado DO Summary Hospital Course Discharge Diagnosis: # acute DKA vs HHS -glucose 2188 on admission, improved to 889 with insulin drip -gap initially 31 and currently 17, ketones positive -continue insulin drip until gap closes -q4h BMPs -replace K as needed per protocol # hypovolemic vs septic shock -likely hypovolemic given patient's severe hypernatremia, cannot rule out sepsis with leukocytotis although afebrile -received 5L boluses and has D5W 150cc/hr running currently -continue levophed and titrate down as able -blood cultures pending -continue vanc, cefepime and acyclovir # acute encephalopathy -likely DKA/HHS, however meningitis cannot be ruled out. Also received dose of ketamine in ED. -abx as above -head CT negative, will attempt LP -precedex low dose for agitation # hypernatremia -Na 151 and corrected to 164 with hyperglycemia -D5W 150cc/hr # THANG -Cr 4.05 on admission, currently 2.21 -likely prerenal due to hypovolemia -IVF as above # type 1 diabetes -A1c 12.3% -insulin drip as above I spent a total of 35 minutes of critical care time on this patient's care today; this time is exclusive of procedural time. Code status is full code. COVID negative. DVT prophylaxis with SCDs. Proxy is mother Pippa Garcia. Hospital Course: Admitted for DKA/HHS and shock to ICU. Initial glucose of 2188 which improved to 889 with insulin drip. Recieved 5L boluses but required levophed 10mcg/hr to main MAP >65. Continued to be encephalopathic so put on meningitis coverage empirically. Head CT negative. Placed on precedex for agitation and pulling at lines. Had received a dose of ketamine in ED. Gap initially 31 but improved to 17. CXR and beta HCG negative. Utox positive for only Oxy. CT abd pelvis with fat stranding of RUQ but normal pancreas. Lipase 797 then increased to 1285. Patient transferred to [facility] for higher level of care. Time Spent with Patient Time spent: Greater than 30 minutes Exam Vital Signs (past 8 hours): - 02/14/22 09:10 02/14/22 09:10 02/14/22 09:15 Temperature Pulse Rate 133 H Respiratory Rate 45 H Blood Pressure 89/57 L 91/59 L Pulse Oximetry 98 Oxygen Delivery Method Oxygen Flow Rate 02/14/22 09:15 02/14/22 09:20 02/14/22 09:20 Temperature Pulse Rate 137 H 136 H Respiratory Rate 38 H 45 H Blood Pressure 93/61 Pulse Oximetry 97 97 Oxygen Delivery Method Room Air Oxygen Flow Rate 02/14/22 09:25 02/14/22 09:25 02/14/22 09:30 Temperature Pulse Rate 135 H Respiratory Rate 47 H Blood Pressure 92/57 L 96/60 Pulse Oximetry 97 Oxygen Delivery Method Oxygen Flow Rate 02/14/22 09:30 02/14/22 09:35 02/14/22 09:35 Temperature Pulse Rate 135 H 135 H Respiratory Rate 44 H 45 H Blood Pressure 93/55 L Pulse Oximetry 97 97 Oxygen Delivery Method Oxygen Flow Rate 02/14/22 09:40 02/14/22 09:40 02/14/22 09:45 Temperature Pulse Rate 137 H Respiratory Rate 49 H Blood Pressure 94/59 L 95/61 Pulse Oximetry 97 Oxygen Delivery Method Oxygen Flow Rate 02/14/22 09:45 02/14/22 09:50 02/14/22 09:50 Temperature Pulse Rate 136 H 138 H Respiratory Rate 45 H 43 H Blood Pressure 89/55 L Pulse Oximetry 97 97 Oxygen Delivery Method Oxygen Flow Rate 02/14/22 09:55 02/14/22 09:55 02/14/22 10:00 Temperature Pulse Rate 135 H Respiratory Rate 45 H Blood Pressure 92/50 L 98/52 L Pulse Oximetry 96 Oxygen Delivery Method Oxygen Flow Rate 02/14/22 10:00 02/14/22 10:05 02/14/22 10:05 Temperature Pulse Rate 135 H 135 H Respiratory Rate 44 H 45 H Blood Pressure 97/50 L Pulse Oximetry 96 97 Oxygen Delivery Method Room Air Oxygen Flow Rate 02/14/22 10:10 02/14/22 10:10 02/14/22 10:15 Temperature Pulse Rate 138 H Respiratory Rate 49 H Blood Pressure 103/58 L 96/58 L Pulse Oximetry 97 Oxygen Delivery Method Room Air Oxygen Flow Rate 02/14/22 10:15 02/14/22 10:20 02/14/22 10:20 Temperature Pulse Rate 135 H 135 H Respiratory Rate 46 H 46 H Blood Pressure 93/55 L Pulse Oximetry 97 98 Oxygen Delivery Method Oxygen Flow Rate 02/14/22 10:25 02/14/22 10:25 02/14/22 10:30 Temperature Pulse Rate 137 H Respiratory Rate 46 H Blood Pressure 89/56 L 92/53 L Pulse Oximetry 100 Oxygen Delivery Method Oxygen Flow Rate 02/14/22 10:30 02/14/22 10:35 02/14/22 10:35 Temperature Pulse Rate 140 H 137 H Respiratory Rate 38 H 45 H Blood Pressure 94/52 L Pulse Oximetry 96 99 Oxygen Delivery Method Oxygen Flow Rate 02/14/22 10:40 02/14/22 10:40 02/14/22 10:45 Temperature Pulse Rate 138 H Respiratory Rate 43 H Blood Pressure 96/55 L 99/60 Pulse Oximetry 97 Oxygen Delivery Method Oxygen Flow Rate 02/14/22 10:45 02/14/22 10:50 02/14/22 10:50 Temperature Pulse Rate 136 H 136 H Respiratory Rate 46 H 46 H Blood Pressure 98/61 Pulse Oximetry 97 95 Oxygen Delivery Method Oxygen Flow Rate 02/14/22 10:55 02/14/22 10:55 02/14/22 11:00 Temperature Pulse Rate 135 H Respiratory Rate 43 H Blood Pressure 98/63 98/60 Pulse Oximetry 96 Oxygen Delivery Method Oxygen Flow Rate 02/14/22 11:00 02/14/22 11:05 02/14/22 11:05 Temperature Pulse Rate 135 H 137 H Respiratory Rate 40 H 49 H Blood Pressure 101/61 Pulse Oximetry 95 95 Oxygen Delivery Method Room Air Oxygen Flow Rate 02/14/22 11:10 02/14/22 11:10 02/14/22 11:15 Temperature Pulse Rate 135 H 136 H Respiratory Rate 46 H 42 H Blood Pressure 95/59 L Pulse Oximetry 96 96 Oxygen Delivery Method Oxygen Flow Rate 02/14/22 11:16 02/14/22 11:16 02/14/22 11:20 Temperature Pulse Rate 136 H Respiratory Rate 45 H Blood Pressure 93/54 L 96/57 L Pulse Oximetry 95 Oxygen Delivery Method Oxygen Flow Rate 02/14/22 11:20 02/14/22 11:25 02/14/22 11:25 Temperature Pulse Rate 134 H 137 H Respiratory Rate 45 H 44 H Blood Pressure 105/62 Pulse Oximetry 96 100 Oxygen Delivery Method Oxygen Flow Rate 02/14/22 11:30 02/14/22 11:30 02/14/22 11:35 Temperature Pulse Rate 139 H Respiratory Rate 47 H Blood Pressure 102/59 L 97/55 L Pulse Oximetry 95 Oxygen Delivery Method Oxygen Flow Rate 02/14/22 11:35 02/14/22 11:40 02/14/22 11:40 Temperature Pulse Rate 137 H 136 H Respiratory Rate 45 H 45 H Blood Pressure 91/55 L Pulse Oximetry 97 97 Oxygen Delivery Method Oxygen Flow Rate 02/14/22 11:46 02/14/22 11:49 02/14/22 11:49 Temperature Pulse Rate 138 H 133 H Respiratory Rate 46 H Blood Pressure 97/57 L Pulse Oximetry 97 Oxygen Delivery Method Oxygen Flow Rate 02/14/22 11:50 02/14/22 11:55 02/14/22 12:00 Temperature Pulse Rate 136 H 135 H 136 H Respiratory Rate 43 H 43 H 45 H Blood Pressure Pulse Oximetry 96 96 95 Oxygen Delivery Method Oxygen Flow Rate 02/14/22 12:05 02/14/22 12:10 02/14/22 12:15 Temperature Pulse Rate 137 H 135 H 140 H Respiratory Rate 47 H 27 H 38 H Blood Pressure Pulse Oximetry 96 96 98 Oxygen Delivery Method Oxygen Flow Rate 02/14/22 12:20 02/14/22 12:25 02/14/22 12:30 Temperature Pulse Rate 139 H 137 H 135 H Respiratory Rate 28 H 36 H 41 H Blood Pressure Pulse Oximetry 96 97 95 Oxygen Delivery Method Oxygen Flow Rate 02/14/22 12:35 02/14/22 12:58 02/14/22 12:40 Temperature 98.7 F Pulse Rate 136 H 134 H Respiratory Rate 45 H 46 H Blood Pressure Pulse Oximetry 95 98 Oxygen Delivery Method Oxygen Flow Rate 02/14/22 12:56 02/14/22 12:57 02/14/22 12:57 Temperature Pulse Rate 134 H 132 H Respiratory Rate Blood Pressure 91/58 L Pulse Oximetry 98 96 Oxygen Delivery Method Oxygen Flow Rate 02/14/22 13:00 02/14/22 13:00 02/14/22 13:05 Temperature Pulse Rate 132 H 133 H Respiratory Rate Blood Pressure 92/57 L Pulse Oximetry 100 99 Oxygen Delivery Method Oxygen Flow Rate 02/14/22 13:08 02/14/22 13:08 02/14/22 13:10 Temperature Pulse Rate 133 H 128 H Respiratory Rate 38 H 40 H Blood Pressure 94/61 Pulse Oximetry 97 100 Oxygen Delivery Method Oxygen Flow Rate 02/14/22 13:15 02/14/22 13:15 02/14/22 13:20 Temperature Pulse Rate 130 H 126 H Respiratory Rate 36 H 39 H Blood Pressure 94/63 Pulse Oximetry 100 100 Oxygen Delivery Method Oxygen Flow Rate 02/14/22 13:25 02/14/22 13:00 02/14/22 13:30 Temperature 98.7 F Pulse Rate 125 H 131 H Respiratory Rate 41 H 33 H Blood Pressure 91/58 L 89/52 L Pulse Oximetry 99 100 Oxygen Delivery Method Oxygen Flow Rate 0 02/14/22 13:30 02/14/22 13:35 02/14/22 13:40 Temperature Pulse Rate 124 H 121 H 122 H Respiratory Rate 39 H 38 H 39 H Blood Pressure Pulse Oximetry 100 100 100 Oxygen Delivery Method Oxygen Flow Rate 02/14/22 13:41 02/14/22 13:41 02/14/22 13:45 Temperature Pulse Rate 121 H Respiratory Rate 38 H Blood Pressure 102/66 103/67 Pulse Oximetry 100 Oxygen Delivery Method Oxygen Flow Rate 02/14/22 13:45 02/14/22 13:50 02/14/22 13:55 Temperature Pulse Rate 117 H 112 H 109 H Respiratory Rate 34 H 33 H 29 H Blood Pressure Pulse Oximetry 100 100 100 Oxygen Delivery Method Oxygen Flow Rate 02/14/22 14:00 02/14/22 14:00 02/14/22 14:05 Temperature Pulse Rate 119 H 108 H Respiratory Rate 33 H 26 H Blood Pressure 112/78 Pulse Oximetry 97 100 Oxygen Delivery Method Oxygen Flow Rate 02/14/22 14:10 02/14/22 14:15 02/14/22 14:15 Temperature Pulse Rate 104 H 109 H Respiratory Rate 26 H 17 Blood Pressure 111/72 Pulse Oximetry 100 100 Oxygen Delivery Method Oxygen Flow Rate 02/14/22 14:20 02/14/22 14:25 02/14/22 14:30 Temperature Pulse Rate 118 H 108 H 108 H Respiratory Rate 33 H 28 H 10 L Blood Pressure Pulse Oximetry 100 100 100 Oxygen Delivery Method Oxygen Flow Rate 02/14/22 14:31 02/14/22 14:31 02/14/22 14:35 Temperature Pulse Rate 108 H 105 H Respiratory Rate 17 26 H Blood Pressure 115/75 Pulse Oximetry 100 100 Oxygen Delivery Method Oxygen Flow Rate 02/14/22 14:40 02/14/22 14:45 02/14/22 14:45 Temperature Pulse Rate 116 H 113 H Respiratory Rate 31 H 25 H Blood Pressure 115/70 Pulse Oximetry 100 100 Oxygen Delivery Method Oxygen Flow Rate 02/14/22 14:50 02/14/22 14:55 02/14/22 15:00 Temperature Pulse Rate 109 H 111 H Respiratory Rate 26 H 29 H Blood Pressure 106/64 Pulse Oximetry 100 100 Oxygen Delivery Method Oxygen Flow Rate 02/14/22 15:00 02/14/22 15:05 02/14/22 15:10 Temperature Pulse Rate 114 H 114 H 127 H Respiratory Rate 31 H 29 H 32 H Blood Pressure Pulse Oximetry 100 100 100 Oxygen Delivery Method Oxygen Flow Rate 02/14/22 15:15 02/14/22 15:16 02/14/22 15:16 Temperature Pulse Rate 120 H 120 H Respiratory Rate 32 H 31 H Blood Pressure 111/72 Pulse Oximetry 100 100 Oxygen Delivery Method Oxygen Flow Rate 02/14/22 15:20 02/14/22 15:25 02/14/22 15:30 Temperature Pulse Rate 120 H 121 H Respiratory Rate 32 H 32 H Blood Pressure 107/66 Pulse Oximetry 100 100 Oxygen Delivery Method Oxygen Flow Rate 02/14/22 15:30 02/14/22 15:35 02/14/22 15:40 Temperature Pulse Rate 127 H 130 H 133 H Respiratory Rate 35 H 38 H 40 H Blood Pressure Pulse Oximetry 100 100 100 Oxygen Delivery Method Oxygen Flow Rate 02/14/22 15:45 02/14/22 15:45 02/14/22 15:50 Temperature Pulse Rate 133 H 136 H Respiratory Rate 40 H 36 H Blood Pressure 102/58 L Pulse Oximetry 100 100 Oxygen Delivery Method Oxygen Flow Rate 02/14/22 15:55 02/14/22 16:00 02/14/22 16:01 Temperature Pulse Rate 126 H 134 H 136 H Respiratory Rate 35 H 36 H 31 H Blood Pressure Pulse Oximetry 100 100 100 Oxygen Delivery Method Oxygen Flow Rate 02/14/22 16:01 02/14/22 16:05 02/14/22 16:10 Temperature Pulse Rate 130 H 124 H Respiratory Rate 32 H 35 H Blood Pressure 124/78 Pulse Oximetry 100 100 Oxygen Delivery Method Oxygen Flow Rate 02/14/22 16:15 02/14/22 16:15 02/14/22 16:20 Temperature Pulse Rate 123 H 130 H Respiratory Rate 37 H 36 H Blood Pressure 110/68 Pulse Oximetry 100 100 Oxygen Delivery Method Oxygen Flow Rate 02/14/22 16:25 Temperature Pulse Rate 124 H Respiratory Rate 37 H Blood Pressure Pulse Oximetry 100 Oxygen Delivery Method Oxygen Flow Rate Oxygen Delivery Method Room Air Oxygen Flow Rate 0 Narrative Exam Narrative: GEN: somnolent HEENT: tongue red from slurpees, PERRL NECK: trachea midline, no JVD CV: tachycardic, regular rhythm, no murmurs PULM: clear bilaterally ABD: soft, nontender, nondistended, no organomegaly EXT: warm and well perfused with no edema NEURO: disoriented, no focal deficits Objective Labs Result Diagrams: 02/14/22 11:35 02/14/22 14:42 Labs: Laboratory Results - last 24 hr 02/13/22 02/13/22 02/13/22 22:47 22:47 22:47 WBC 18.4 H RBC 5.89 H Hgb 17.3 H Hct 61.7 H* MCV 104.7 H MCH 29.3 MCHC 28.0 L RDW 15.2 H Plt Count 251 Neut % (Auto) 89.5 H Lymph % (Auto) 3.7 L [place] % (Auto) 6.6 Eos % (Auto) 0.1 L Baso % (Auto) 0.1 Neut # (Auto) 74547 H Lymph # (Auto) 700 L [place] # (Auto) 1200 H Eos # (Auto) 0 Baso # (Auto) 0 Total Counted Seg Neutrophils % Band Neutrophils % Lymphocytes % (Manual) Atypical Lymphs % Monocytes % (Manual) Metamyelocytes % Neutrophils # (Manual) RBC Morphology VBG pH VBG pCO2 VBG pO2 VBG HCO3 VBG Total CO2 VBG O2 Saturation VBG Base Excess Sodium 127 L Potassium 2.8 L Chloride 77 L Carbon Dioxide 19 L BUN 116 H* Creatinine 4.05 H Estimated GFR 14 L BUN/Creatinine Ratio 28.6 H Glucose 2188 H* Hemoglobin A1c Lactate Calcium 9.4 Magnesium Total Bilirubin 1.1 AST 21 ALT 21 Alkaline Phosphatase 125 Ammonia < 9 L Total Creatine Kinase 247 H CK-MB (CK-2) 1.60 CK-MB (CK-2) Rel Index 0.6 L Troponin I 0.034 Total Protein 7.6 Albumin 4.9 Globulin 2.7 Albumin/Globulin Ratio 1.8 Triglycerides Lipase 797 H TSH HCG, Quant Urine Color Urine Appearance Urine pH Ur Specific [place] Urine Protein Urine Glucose (UA) Urine Ketones Urine Occult Blood Urine Nitrate Urine Bilirubin Urine Urobilinogen Ur Leukocyte Esterase Urine RBC Urine WBC Ur Squamous Epith Cells Urine Bacteria Ur Culture Indicated? Nasal Screen MRSA (PCR) U Opiates 300ng/mL cut Ur Oxycodone Screen Urine Methadone Screen Ur Barbiturates Screen U Tricyclic Antidepress Ur Phencyclidine Scrn Ur Amphetamines Screen U Methamphetamines Scrn Ur MDMA Scrn (Ecstasy) U Benzodiazepines Scrn Urine Cocaine Screen U Marijuana (THC) Screen Ethyl Alcohol < 10 Ketones 7.83 H SARS-CoV-2 (PCR) 02/13/22 02/13/22 02/13/22 22:47 22:53 23:23 WBC RBC Hgb Hct MCV MCH MCHC RDW Plt Count Neut % (Auto) Lymph % (Auto) [place] % (Auto) Eos % (Auto) Baso % (Auto) Neut # (Auto) Lymph # (Auto) [place] # (Auto) Eos # (Auto) Baso # (Auto) Total Counted Seg Neutrophils % Band Neutrophils % Lymphocytes % (Manual) Atypical Lymphs % Monocytes % (Manual) Metamyelocytes % Neutrophils # (Manual) RBC Morphology VBG pH 7.19 L* VBG pCO2 60.5 H VBG pO2 39 VBG HCO3 23 VBG Total CO2 25 VBG O2 Saturation 60 L VBG Base Excess -5.0 L Sodium Potassium Chloride Carbon Dioxide BUN Creatinine Estimated GFR BUN/Creatinine Ratio Glucose Hemoglobin A1c Lactate Calcium Magnesium Total Bilirubin AST ALT Alkaline Phosphatase Ammonia Total Creatine Kinase CK-MB (CK-2) CK-MB (CK-2) Rel Index Troponin I Total Protein Albumin Globulin Albumin/Globulin Ratio Triglycerides Lipase TSH HCG, Quant < 2.4 Urine Color Urine Appearance Urine pH Ur Specific [place] Urine Protein Urine Glucose (UA) Urine Ketones Urine Occult Blood Urine Nitrate Urine Bilirubin Urine Urobilinogen Ur Leukocyte Esterase Urine RBC Urine WBC Ur Squamous Epith Cells Urine Bacteria Ur Culture Indicated? Nasal Screen MRSA (PCR) U Opiates 300ng/mL cut Negative Ur Oxycodone Screen Positive H Urine Methadone Screen Negative Ur Barbiturates Screen Negative U Tricyclic Antidepress Negative Ur Phencyclidine Scrn Negative Ur Amphetamines Screen Negative U Methamphetamines Scrn Negative Ur MDMA Scrn (Ecstasy) Negative U Benzodiazepines Scrn Negative Urine Cocaine Screen Negative U Marijuana (THC) Screen Negative Ethyl Alcohol Ketones SARS-CoV-2 (PCR) 02/13/22 02/13/22 02/13/22 23:31 23:54 23:54 WBC RBC Hgb Hct MCV MCH MCHC RDW Plt Count Neut % (Auto) Lymph % (Auto) [place] % (Auto) Eos % (Auto) Baso % (Auto) Neut # (Auto) Lymph # (Auto) [place] # (Auto) Eos # (Auto) Baso # (Auto) Total Counted Seg Neutrophils % Band Neutrophils % Lymphocytes % (Manual) Atypical Lymphs % Monocytes % (Manual) Metamyelocytes % Neutrophils # (Manual) RBC Morphology VBG pH VBG pCO2 VBG pO2 VBG HCO3 VBG Total CO2 VBG O2 Saturation VBG Base Excess Sodium 131 L Potassium 2.8 L Chloride 89 L Carbon Dioxide 16 L BUN 110 H* Creatinine 3.75 H Estimated GFR 16 L BUN/Creatinine Ratio 29.3 H Glucose 2082 H* Hemoglobin A1c Lactate 1.4 Calcium 8.2 L Magnesium Total Bilirubin AST ALT Alkaline Phosphatase Ammonia Total Creatine Kinase CK-MB (CK-2) CK-MB (CK-2) Rel Index Troponin I Total Protein Albumin Globulin Albumin/Globulin Ratio Triglycerides Lipase TSH 0.53 HCG, Quant Urine Color Urine Appearance Urine pH Ur Specific [place] Urine Protein Urine Glucose (UA) Urine Ketones Urine Occult Blood Urine Nitrate Urine Bilirubin Urine Urobilinogen Ur Leukocyte Esterase Urine RBC Urine WBC Ur Squamous Epith Cells Urine Bacteria Ur Culture Indicated? Nasal Screen MRSA (PCR) U Opiates 300ng/mL cut Ur Oxycodone Screen Urine Methadone Screen Ur Barbiturates Screen U Tricyclic Antidepress Ur Phencyclidine Scrn Ur Amphetamines Screen U Methamphetamines Scrn Ur MDMA Scrn (Ecstasy) U Benzodiazepines Scrn Urine Cocaine Screen U Marijuana (THC) Screen Ethyl Alcohol Ketones SARS-CoV-2 (PCR) 02/14/22 02/14/22 02/14/22 01:32 01:32 01:35 WBC RBC Hgb Hct MCV MCH MCHC RDW Plt Count Neut % (Auto) Lymph % (Auto) [place] % (Auto) Eos % (Auto) Baso % (Auto) Neut # (Auto) Lymph # (Auto) [place] # (Auto) Eos # (Auto) Baso # (Auto) Total Counted Seg Neutrophils % Band Neutrophils % Lymphocytes % (Manual) Atypical Lymphs % Monocytes % (Manual) Metamyelocytes % Neutrophils # (Manual) RBC Morphology VBG pH 7.13 L* VBG pCO2 54.6 H VBG pO2 62 H VBG HCO3 18 L VBG Total CO2 20 L VBG O2 Saturation 83 H VBG Base Excess -11.0 L Sodium 136 L Potassium 3.0 L Chloride 94 L Carbon Dioxide 17 L BUN 109 H* Creatinine 3.64 H Estimated GFR 16 L BUN/Creatinine Ratio 29.9 H Glucose 1920 H* Hemoglobin A1c Lactate 1.3 Calcium 8.0 L Magnesium Total Bilirubin 0.7 AST 17 ALT 18 Alkaline Phosphatase 97 Ammonia Total Creatine Kinase CK-MB (CK-2) CK-MB (CK-2) Rel Index Troponin I Total Protein 6.1 L Albumin 3.9 Globulin 2.2 Albumin/Globulin Ratio 1.8 Triglycerides Lipase TSH HCG, Quant Urine Color Urine Appearance Urine pH Ur Specific [place] Urine Protein Urine Glucose (UA) Urine Ketones Urine Occult Blood Urine Nitrate Urine Bilirubin Urine Urobilinogen Ur Leukocyte Esterase Urine RBC Urine WBC Ur Squamous Epith Cells Urine Bacteria Ur Culture Indicated? Nasal Screen MRSA (PCR) U Opiates 300ng/mL cut Ur Oxycodone Screen Urine Methadone Screen Ur Barbiturates Screen U Tricyclic Antidepress Ur Phencyclidine Scrn Ur Amphetamines Screen U Methamphetamines Scrn Ur MDMA Scrn (Ecstasy) U Benzodiazepines Scrn Urine Cocaine Screen U Marijuana (THC) Screen Ethyl Alcohol Ketones SARS-CoV-2 (PCR) 02/14/22 02/14/22 02/14/22 01:58 05:00 07:33 WBC 18.1 H RBC 5.51 H Hgb 15.6 Hct 49.4 H MCV 89.6 D MCH 28.3 MCHC 31.6 D RDW 13.7 Plt Count 232 Neut % (Auto) Not Reportable Lymph % (Auto) Not Reportable [place] % (Auto) Not Reportable Eos % (Auto) Not Reportable Baso % (Auto) Not Reportable Neut # (Auto) Lymph # (Auto) Not Reportable [place] # (Auto) Not Reportable Eos # (Auto) Baso # (Auto) Not Reportable Total Counted 100 Seg Neutrophils % 75.0 H Band Neutrophils % 8.0 H Lymphocytes % (Manual) 9.0 L Atypical Lymphs % 1.0 H Monocytes % (Manual) 6.0 Metamyelocytes % 1.0 H Neutrophils # (Manual) 85055 H RBC Morphology Normal morphology VBG pH VBG pCO2 VBG pO2 VBG HCO3 VBG Total CO2 VBG O2 Saturation VBG Base Excess Sodium 144 Potassium 2.8 L Chloride 103 Carbon Dioxide 20 L BUN 99 H Creatinine 2.97 H Estimated GFR 21 L BUN/Creatinine Ratio 33.3 H Glucose 1456 H* Hemoglobin A1c Lactate Calcium 8.7 Magnesium Total Bilirubin AST ALT Alkaline Phosphatase Ammonia Total Creatine Kinase CK-MB (CK-2) CK-MB (CK-2) Rel Index Troponin I Total Protein Albumin Globulin Albumin/Globulin Ratio Triglycerides Lipase TSH HCG, Quant Urine Color Urine Appearance Urine pH Ur Specific [place] Urine Protein Urine Glucose (UA) Urine Ketones Urine Occult Blood Urine Nitrate Urine Bilirubin Urine Urobilinogen Ur Leukocyte Esterase Urine RBC Urine WBC Ur Squamous Epith Cells Urine Bacteria Ur Culture Indicated? Nasal Screen MRSA (PCR) U Opiates 300ng/mL cut Ur Oxycodone Screen Urine Methadone Screen Ur Barbiturates Screen U Tricyclic Antidepress Ur Phencyclidine Scrn Ur Amphetamines Screen U Methamphetamines Scrn Ur MDMA Scrn (Ecstasy) U Benzodiazepines Scrn Urine Cocaine Screen U Marijuana (THC) Screen Ethyl Alcohol Ketones SARS-CoV-2 (PCR) Negative 02/14/22 02/14/22 02/14/22 07:33 07:33 07:33 WBC RBC Hgb Hct MCV MCH MCHC RDW Plt Count Neut % (Auto) Lymph % (Auto) [place] % (Auto) Eos % (Auto) Baso % (Auto) Neut # (Auto) Lymph # (Auto) [place] # (Auto) Eos # (Auto) Baso # (Auto) Total Counted Seg Neutrophils % Band Neutrophils % Lymphocytes % (Manual) Atypical Lymphs % Monocytes % (Manual) Metamyelocytes % Neutrophils # (Manual) RBC Morphology VBG pH VBG pCO2 VBG pO2 VBG HCO3 VBG Total CO2 VBG O2 Saturation VBG Base Excess Sodium 146 H Potassium 3.3 L Chloride 106 Carbon Dioxide 23 BUN 102 H Creatinine 2.83 H Estimated GFR 22 L BUN/Creatinine Ratio 36.0 H Glucose 1200 H* Hemoglobin A1c 12.3 H Lactate Calcium 8.3 L Magnesium 4.0 H Total Bilirubin AST ALT Alkaline Phosphatase Ammonia Total Creatine Kinase CK-MB (CK-2) CK-MB (CK-2) Rel Index Troponin I Total Protein Albumin Globulin Albumin/Globulin Ratio Triglycerides Lipase TSH HCG, Quant Urine Color Urine Appearance Urine pH Ur Specific [place] Urine Protein Urine Glucose (UA) Urine Ketones Urine Occult Blood Urine Nitrate Urine Bilirubin Urine Urobilinogen Ur Leukocyte Esterase Urine RBC Urine WBC Ur Squamous Epith Cells Urine Bacteria Ur Culture Indicated? Nasal Screen MRSA (PCR) U Opiates 300ng/mL cut Ur Oxycodone Screen Urine Methadone Screen Ur Barbiturates Screen U Tricyclic Antidepress Ur Phencyclidine Scrn Ur Amphetamines Screen U Methamphetamines Scrn Ur MDMA Scrn (Ecstasy) U Benzodiazepines Scrn Urine Cocaine Screen U Marijuana (THC) Screen Ethyl Alcohol Ketones SARS-CoV-2 (PCR) 02/14/22 02/14/22 02/14/22 08:51 11:35 11:35 WBC 19.8 H RBC 5.28 H Hgb 15.0 Hct 46.5 H MCV 88.0 MCH 28.5 MCHC 32.3 RDW 13.6 Plt Count 257 Neut % (Auto) Not Reportable Lymph % (Auto) Not Reportable [place] % (Auto) Not Reportable Eos % (Auto) Not Reportable Baso % (Auto) Not Reportable Neut # (Auto) Lymph # (Auto) Not Reportable [place] # (Auto) Not Reportable Eos # (Auto) Baso # (Auto) Not Reportable Total Counted 100 Seg Neutrophils % 81.0 H Band Neutrophils % 9.0 H Lymphocytes % (Manual) 4.0 L Atypical Lymphs % Monocytes % (Manual) 5.0 Metamyelocytes % 1.0 H Neutrophils # (Manual) 23373 H RBC Morphology Normal morphology VBG pH VBG pCO2 VBG pO2 VBG HCO3 VBG Total CO2 VBG O2 Saturation VBG Base Excess Sodium 145 Potassium 4.5 D Chloride 107 Carbon Dioxide 19 L BUN 95 H Creatinine 2.65 H Estimated GFR 24 L BUN/Creatinine Ratio 35.8 H Glucose 1076 H* Hemoglobin A1c Lactate Calcium 8.3 L Magnesium Total Bilirubin AST ALT Alkaline Phosphatase Ammonia Total Creatine Kinase CK-MB (CK-2) CK-MB (CK-2) Rel Index Troponin I Total Protein Albumin Globulin Albumin/Globulin Ratio Triglycerides Lipase TSH HCG, Quant Urine Color Yellow Urine Appearance Clear Urine pH 5.5 Ur Specific [place] <=1.005 Urine Protein 2+ H Urine Glucose (UA) 2+ H Urine Ketones Trace H Urine Occult Blood 2+ H Urine Nitrate Negative Urine Bilirubin Negative Urine Urobilinogen 0.2 Ur Leukocyte Esterase Negative Urine RBC 5-10/hpf H Urine WBC None seen Ur Squamous Epith Cells 0-1 /hpf Urine Bacteria None seen Ur Culture Indicated? Cult not indicated Nasal Screen MRSA (PCR) U Opiates 300ng/mL cut Ur Oxycodone Screen Urine Methadone Screen Ur Barbiturates Screen U Tricyclic Antidepress Ur Phencyclidine Scrn Ur Amphetamines Screen U Methamphetamines Scrn Ur MDMA Scrn (Ecstasy) U Benzodiazepines Scrn Urine Cocaine Screen U Marijuana (THC) Screen Ethyl Alcohol Ketones SARS-CoV-2 (PCR) 02/14/22 02/14/22 02/14/22 11:35 11:35 13:02 WBC RBC Hgb Hct MCV MCH MCHC RDW Plt Count Neut % (Auto) Lymph % (Auto) [place] % (Auto) Eos % (Auto) Baso % (Auto) Neut # (Auto) Lymph # (Auto) [place] # (Auto) Eos # (Auto) Baso # (Auto) Total Counted Seg Neutrophils % Band Neutrophils % Lymphocytes % (Manual) Atypical Lymphs % Monocytes % (Manual) Metamyelocytes % Neutrophils # (Manual) RBC Morphology VBG pH VBG pCO2 VBG pO2 VBG HCO3 VBG Total CO2 VBG O2 Saturation VBG Base Excess Sodium Potassium Chloride Carbon Dioxide BUN Creatinine Estimated GFR BUN/Creatinine Ratio Glucose Hemoglobin A1c Lactate Calcium Magnesium Total Bilirubin AST ALT Alkaline Phosphatase Ammonia Total Creatine Kinase CK-MB (CK-2) CK-MB (CK-2) Rel Index Troponin I Total Protein Albumin Globulin Albumin/Globulin Ratio Triglycerides 313 H Lipase 1285 H D TSH HCG, Quant Urine Color Urine Appearance Urine pH Ur Specific [place] Urine Protein Urine Glucose (UA) Urine Ketones Urine Occult Blood Urine Nitrate Urine Bilirubin Urine Urobilinogen Ur Leukocyte Esterase Urine RBC Urine WBC Ur Squamous Epith Cells Urine Bacteria Ur Culture Indicated? Nasal Screen MRSA (PCR) Negative for mrsa U Opiates 300ng/mL cut Ur Oxycodone Screen Urine Methadone Screen Ur Barbiturates Screen U Tricyclic Antidepress Ur Phencyclidine Scrn Ur Amphetamines Screen U Methamphetamines Scrn Ur MDMA Scrn (Ecstasy) U Benzodiazepines Scrn Urine Cocaine Screen U Marijuana (THC) Screen Ethyl Alcohol Ketones SARS-CoV-2 (PCR) 02/14/22 14:42 WBC RBC Hgb Hct MCV MCH MCHC RDW Plt Count Neut % (Auto) Lymph % (Auto) [place] % (Auto) Eos % (Auto) Baso % (Auto) Neut # (Auto) Lymph # (Auto) [place] # (Auto) Eos # (Auto) Baso # (Auto) Total Counted Seg Neutrophils % Band Neutrophils % Lymphocytes % (Manual) Atypical Lymphs % Monocytes % (Manual) Metamyelocytes % Neutrophils # (Manual) RBC Morphology VBG pH VBG pCO2 VBG pO2 VBG HCO3 VBG Total CO2 VBG O2 Saturation VBG Base Excess Sodium 151 H Potassium 4.0 Chloride 113 H Carbon Dioxide 22 BUN 86 H Creatinine 2.21 H Estimated GFR 29 L BUN/Creatinine Ratio 38.9 H Glucose 889 H* Hemoglobin A1c Lactate Calcium 8.0 L Magnesium Total Bilirubin AST ALT Alkaline Phosphatase Ammonia Total Creatine Kinase CK-MB (CK-2) CK-MB (CK-2) Rel Index Troponin I Total Protein Albumin Globulin Albumin/Globulin Ratio Triglycerides Lipase TSH HCG, Quant Urine Color Urine Appearance Urine pH Ur Specific [place] Urine Protein Urine Glucose (UA) Urine Ketones Urine Occult Blood Urine Nitrate Urine Bilirubin Urine Urobilinogen Ur Leukocyte Esterase Urine RBC Urine WBC Ur Squamous Epith Cells Urine Bacteria Ur Culture Indicated? Nasal Screen MRSA (PCR) U Opiates 300ng/mL cut Ur Oxycodone Screen Urine Methadone Screen Ur Barbiturates Screen U Tricyclic Antidepress Ur Phencyclidine Scrn Ur Amphetamines Screen U Methamphetamines Scrn Ur MDMA Scrn (Ecstasy) U Benzodiazepines Scrn Urine Cocaine Screen U Marijuana (THC) Screen Ethyl Alcohol Ketones SARS-CoV-2 (PCR) [facility] Social History household members: family Smoking Status: Never smoker alcohol intake: current Discharge Plan Discharge Plan Disposition: Xfer Acute Care Hospital Discharge orders & Medications Follow up/Referrals: Deann Woo MD [Primary Care Provider] - Discharge Data Primary Care Provider: Deann Woo Quality VTE Deep Vein Thrombosis/Pulmonary Embolism Present on Admission: No
[2022-02-14 17:09] LABS: Glucose 806 mg/dL (70-100)
[2022-02-14 17:38] LABS: Blood Urea Nitrogen 85 mg/dL (7-17); Calcium 8.6 mg/dL (8.4-10.2); Chloride 111 mmol/L (98-107); Estimated Glomerular Filt Rate 28 mL/min (>60); HEMOLYSIS 22 (0-50); Potassium 4.1 mmol/L (3.4-5.1); Sodium 154 mmol/L (137-145)
[2022-02-14 17:46] LABS: Glucose 806 mg/dL (70-100)
[2022-02-14 17:51] LABS: Carbon Dioxide 25 mmol/L (22-32)
[2022-02-14] MEDS: NOREPINEPHRINE BITARTRATE/D5W 4 MG/250 ML PLAST..BAG 45 MG IV (18:00)
[2022-02-14] MEDS: dexmedeTOMIDine in 0.9 % NaCL 400 MCG/100 ML PLAST..BAG 17.123 MCG IV (18:52)
[2022-02-14] MEDS: VASOPRESSIN 20 UNIT/ML VIAL ×2 (19:19)
== END 2022-02-14 20:23 | disposition short-term general hospital (02) | DRG 420 ==
LOC: ED 02-14 12:02 → AC 02-14 12:11 → ICU 02-14 12:16
PROVIDERS: Emergency Medicine; Internal Medicine; Admitting Provider Student in an Organized Health Care Education/Training Program; Emergency Provider Emergency Medicine; PCP Family Medicine; Referring Provider Emergency Medicine; Visit Provider Student in an Organized Health Care Education/Training Program
DX: E10.10 Type 1 diabetes mellitus with ketoacidosis without coma (principal); E11.00 Type 2 diabetes mellitus with hyperosmolarity without nonketotic hyperglycemic-hyperosmolar coma (NKHHC); R57.8 Other shock; G93.41 Metabolic encephalopathy; A41.9 Sepsis, unspecified organism; R65.21 Severe sepsis with septic shock; N17.9 Acute kidney failure, unspecified; E87.0 Hyperosmolality and hypernatremia; G03.9 Meningitis, unspecified; T41.295A Adverse effect of other general anesthetics, initial encounter; T88.6XXA Anaphylactic reaction due to adverse effect of correct drug or medicament properly administered, initial encounter; Z20.822 Contact with and (suspected) exposure to COVID-19
CPT/HCPCS: 36415; 70450; 71045; 74176; 80048; 80053; 80305; 80320; 81001; 82009; 82140; 82550; 82553; 82805; 82947; 82962; 83036; 83605; 83690; 83735; 84443; 84478; 84484; 84702; 85007; 85025; 87040; 87635; 87797; 93005; 93010; 96365; 96366; 96367; 96368; 96375; 99285; 99291; 99292; C9803; J0692; J2060; J2543

== ENCOUNTER 2024-06-29 05:41 | Emergency (ER) | payer OTHER, SELFPAY ==
[2022-02-14 13:06] VITALS: BMI 25.9
[2024-06-29] VITALS (17 sets, daily range): BP systolic 91–133; BP diastolic 56–86; PULSE 104–134; RESP 14–22; TEMP 35.6; O2SAT 95–98; BMI 28.3
[2024-06-29 06:00] LABS: Base Excess VBG -7.2 mmol/L (0-4); HCO3 VBG 20 mmol/L (24-28); Oxygen Saturation VBG 75 % (70-75); PCO2 VBG 42.4 mmHg (45-50); PO2 VBG 46 mmHg (35-45); Total CO2 VBG 19 mmol/L (24-29); pH VBG 7.27 (7.33-7.43)
[2024-06-29] MEDS: SODIUM CHLORIDE 0.9% 1,000 ML 1000 ML IV (06:06)
[2024-06-29 06:11] LABS: Add Manual Diff / Slide Review NO; Basophils Absolute Auto 0 /uL (0-100); Basophils Percent Auto 0.1 % (0-2); Eosinophils Absolute Auto 0 /uL (0-450); Eosinophils Percent Auto 0.1 % (2-4); Hemoglobin 18.9 g/dL (12.0-16.0); Lymphocytes Absolute Auto 2000 /uL (1100-4500); Lymphocytes Percent Auto 7.1 % (25-40); Mean Corpuscular HGB Conc 31.3 % (30-36); Mean Corpuscular Hemoglobin 29.4 PG (26-34); Mean Corpuscular Volume 93.8 fL (80-100); Monocytes Absolute Auto 1600 /uL (0-900); Monocytes Percent Auto 5.8 % (3-14); Neutrophils Absolute Auto 24100 /uL (1500-7000); Neutrophils Percent Auto 86.9 % (50-75); Platelet Count 239 X10^3/uL (150-400); Red Blood Cell Count 6.44 X10^6/uL (4.0-5.2); Red Cell Distribution Width 14.6 % (11.6-14.8); White Blood Cell Count 27.7 X10^3/uL (4.5-11.0)
[2024-06-29 06:13] LABS: Hematocrit 60.4 % (36-46)
[2024-06-29 06:15] LABS: Alanine Aminotransferase 29 IU/L (<35); Albumin 5.1 g/dL (3.5-5.0); Albumin Globulin Ratio 1.2 (1.0-2.8); Alkaline Phosphatase 134 U/L (38-126); Aspartate Aminotransferase 31 IU/L (14-36); Bilirubin Total 0.7 mg/dL (0.2-1.3); Calcium 9.9 mg/dL (8.4-10.2); Carbon Dioxide 18 mmol/L (22-32); Chloride 99 mmol/L (98-107); Globulin 4.1 g/dL (1.7-4.1); HEMOLYSIS < 15 (0-50); Lactate (Lactic Acid) 2.4 mmol/L (0.7-2.1); Lipase 83 U/L (23-300); Potassium 4.4 mmol/L (3.4-5.1); Sodium 148 mmol/L (137-145); Total Protein 9.2 g/dL (6.3-8.2)
[2024-06-29 06:20] LABS: BUN Creatinine Ratio 38.1 (6-22); Estimated Glomerular Filt Rate 21 mL/min (>60)
--- NOTE | 2024-06-29 06:24 | ED_ITS ---
HPI - Abdominal Pain <Dionne Rubio DO - Last Filed: 06/29/24 19:23> General Chief Complaint: Abdominal Pain Stated Complaint: pancreatitis episode. Time Seen by Provider: 06/29/24 06:01 Source: EMS Mode of arrival: EMS History of Present Illness HPI narrative: Patient is a 33-year-old female history of insulin-dependent diabetes diagnosed with diabetes in 2013 after pancreatic issues he has had multiple surgeries presenting today with increased abdominal pain nausea and vomiting. This has been ongoing for the last couple of days. Really can not keep much of anything down. EMS was called she was given 17 mg of ketamine along with 100 mcg of fentanyl due to pain. She denies any chest pain or palpitations. She is overall poor historian mom at bedside. POC glucoses were read as high. She was admitted here in 2021 with hyperglycemia glucose as high as 1200 Related Data Home Medications Medication Instructions Recorded Confirmed No Known Home Medications 02/14/22 02/14/22 Allergies Allergy/AdvReac Type Severity Reaction Status Date / Time No Known Drug Allergies Allergy Verified 02/13/22 22:53 Review of Systems <Kev Yost MD - Last Filed: 07/02/24 19:50> Review of Systems Narrative: GENERAL: Negative chills, fatigue, malaise, fever, sweats. HEENT: Negative sinus pain, ear pain, sore throat RESPIRATORY: Negative dyspnea, cough CARDIOVASCULAR: Negative chest pain, palpitations GASTROINTESTINAL: Positive nausea, vomiting, abdominal pain : Negative dysuria, frequency, hematuria MUSCULOSKELETAL: Negative muscle or bony pain SKIN: Negative rash, skin lesions NEUROLOGIC: Negative weakness, numbness Patient History <Dionne Rubio DO - Last Filed: 06/29/24 19:23> Social History household members: family Smoking Status: Never smoker alcohol intake: current Smoking Status: Never smoker alcohol intake frequency: holidays/special occasions only Exam <Dionne Rubio DO - Last Filed: 06/29/24 19:23> Initial Vital Signs Initial Vital Signs: Vital Signs Temperature 96.1 F L 06/29/24 05:41 Pulse Rate 134 H 06/29/24 05:41 Respiratory Rate 14 06/29/24 05:41 Blood Pressure 91/64 06/29/24 05:41 Pulse Oximetry 96 06/29/24 05:41 Oxygen Delivery Method Room Air 06/29/24 05:41 GENERAL: Sleepy but arousable and in no acute distress. HEENT: Head atraumatic,EOMI, pupils reactive, face symmetric, moist mucous membranes CARDIOVASCULAR: Regular rate and rhythm without murmurs, rubs or gallops. RESPIRATORY: Breath sounds equal bilaterally, no wheezes rales or rhonchi. ABDOMEN: Soft, diffusely tender no distention EXTREMITIES: Normal range of motion, no clubbing or edema. Neurovascularly intact NEUROLOGICAL: Alert and oriented x4.Normal gait and speech. Moving all extremities SKIN: Warm, dry, no laceration, no petechiae, no rashes or lesions. <Kev Yost MD - Last Filed: 07/02/24 19:50> Narrative Exam Narrative: GENERAL: in no distress, not toxic not dyspneic HEAD: Normocephalic. EYES: Pupils equal round ENT: Mucous membranes dry NECK: Trachea midline. CARDIOVASCULAR: Regular rate and rhythm, tachycardic RESPIRATORY: Clear to auscultation. Breath sounds equal bilaterally. No wheezes, rales, or rhonchi. No respiratory distress GASTROINTESTINAL: Abdomen soft, non-tender EXTREMITIES: No gross deformities. BACK: No flank tenderness. NEURO: AOx4. Clear speech SKIN: Warm and dry PSYCH: Not anxious, is cooperative Initial Vital Signs Initial Vital Signs: Vital Signs Temperature 96.1 F L 06/29/24 05:41 Pulse Rate 134 H 06/29/24 05:41 Respiratory Rate 14 06/29/24 05:41 Blood Pressure 91/64 06/29/24 05:41 Pulse Oximetry 96 06/29/24 05:41 Oxygen Delivery Method Room Air 06/29/24 05:41 Course <Dionne Rubio DO - Last Filed: 06/29/24 19:23> Orders Ordered: Discontinued Medications Sodium Chloride (Normal Saline 0.9%) 1,000 mls @ 1,000 mls/hr IV BOLUS ONE Stop: 06/29/24 07:00 Last Infusion: 06/29/24 07:05 Dose: Infused Documented By: Admin: 06/29/24 06:06 Dose: 1,000 mls/hr Documented By: ZANDER Piperacillin Sod/Tazobactam (Sod 4.5 gm/ Sodium Chloride) 100 mls @ 200 mls/hr IV NOW ONE Stop: 06/29/24 06:20 Last Infusion: 06/29/24 07:34 Dose: Infused Documented By: Admin: 06/29/24 06:59 Dose: 200 mls/hr Documented By: ZANDER Sodium Chloride (Normal Saline 0.9%) 2,177.25 mls @ 725.75 mls/hr 30 ml/kg infuse over 3 hr (2177.25 ml) IV NOW ONE Stop: 06/29/24 09:18 Last Infusion: 06/29/24 09:39 Dose: Infused Documented By: Admin: 06/29/24 06:56 Dose: 725.75 mls/hr Documented By: ZANDER INSULIN DRIP PREMIX (Myxredlin Drip Premix) 100 unit in 100 mls @ 7.258 mls/hr IV TITRATE OG; Protocol Last Admin: 06/29/24 06:58 Dose: 0.1 unit/kg/hr, 7.258 mls/hr Documented By: ZANDER Co-signed By: NILO Dextrose (Dextrose 5% Water) 403 mls @ 1,000 mls/hr IV NOW ONE Stop: 06/29/24 10:11 Last Infusion: 06/29/24 10:14 Dose: Infused Documented By: Admin: 06/29/24 09:50 Dose: 1,000 mls/hr Documented By: ALAN Lorazepam (Lorazepam 2 Mg/Ml Inj) 1 mg IV NOW ONE Stop: 06/29/24 10:53 Last Admin: 06/29/24 10:56 Dose: 1 mg Documented By: ALAN Morphine Sulfate (Morphine 2 Mg/Ml Inj) 2 mg IV Q2HR PRN PRN Reason: Pain, Moderate (4-6) Last Admin: 06/29/24 08:46 Dose: 2 mg Documented By: ALAN Ondansetron HCl (Ondansetron 4 Mg/2 Ml Inj) 4 mg IV Q6HR PRN PRN Reason: Nausea And Vomiting Last Admin: 06/29/24 08:47 Dose: 4 mg Documented By: ALAN Vital Signs Vital signs: Vital Signs - 8 hr 06/29/24 11:30 06/29/24 11:30 Pulse Rate 119 H Respiratory Rate 17 Blood Pressure 105/72 Pulse Oximetry 97 <Kev Yost MD - Last Filed: 07/02/24 19:50> Orders Ordered: Discontinued Medications Sodium Chloride (Normal Saline 0.9%) 1,000 mls @ 1,000 mls/hr IV BOLUS ONE Stop: 06/29/24 07:00 Last Infusion: 06/29/24 07:05 Dose: Infused Documented By: Admin: 06/29/24 06:06 Dose: 1,000 mls/hr Documented By: ZANDER Piperacillin Sod/Tazobactam (Sod 4.5 gm/ Sodium Chloride) 100 mls @ 200 mls/hr IV NOW ONE Stop: 06/29/24 06:20 Last Infusion: 06/29/24 07:34 Dose: Infused Documented By: Admin: 06/29/24 06:59 Dose: 200 mls/hr Documented By: ZANDER Sodium Chloride (Normal Saline 0.9%) 2,177.25 mls @ 725.75 mls/hr 30 ml/kg infuse over 3 hr (2177.25 ml) IV NOW ONE Stop: 06/29/24 09:18 Last Infusion: 06/29/24 09:39 Dose: Infused Documented By: Admin: 06/29/24 06:56 Dose: 725.75 mls/hr Documented By: ZANDER INSULIN DRIP PREMIX (Myxredlin Drip Premix) 100 unit in 100 mls @ 7.258 mls/hr IV TITRATE OG; Protocol Last Admin: 06/29/24 06:58 Dose: 0.1 unit/kg/hr, 7.258 mls/hr Documented By: ZANDER Co-signed By: NILO Dextrose (Dextrose 5% Water) 403 mls @ 1,000 mls/hr IV NOW ONE Stop: 06/29/24 10:11 Last Infusion: 06/29/24 10:14 Dose: Infused Documented By: Admin: 06/29/24 09:50 Dose: 1,000 mls/hr Documented By: ALAN Lorazepam (Lorazepam 2 Mg/Ml Inj) 1 mg IV NOW ONE Stop: 06/29/24 10:53 Last Admin: 06/29/24 10:56 Dose: 1 mg Documented By: ALAN Morphine Sulfate (Morphine 2 Mg/Ml Inj) 2 mg IV Q2HR PRN PRN Reason: Pain, Moderate (4-6) Last Admin: 06/29/24 08:46 Dose: 2 mg Documented By: ALAN Ondansetron HCl (Ondansetron 4 Mg/2 Ml Inj) 4 mg IV Q6HR PRN PRN Reason: Nausea And Vomiting Last Admin: 06/29/24 08:47 Dose: 4 mg Documented By: ALAN Vital Signs Vital signs: Vital Signs - 8 hr 06/29/24 11:30 06/29/24 11:30 Pulse Rate 119 H Respiratory Rate 17 Blood Pressure 105/72 Pulse Oximetry 97 MDM - Abdominal Pain <Dionne Rubio DO - Last Filed: 06/29/24 19:23> Lab Data 06/29/24 05:44 06/29/24 11:03 Labs: Lab Results 06/29/24 06/29/24 06/29/24 Range/Units 05:44 05:57 07:49 WBC 27.7 H (4.5-11.0) X10^3/uL RBC 6.44 H (4.0-5.2) X10^6/uL Hgb 18.9 H (12.0-16.0) g/dL Hct 60.4 H* (36-46) % MCV 93.8 (80-100) fL MCH 29.4 (26-34) PG MCHC 31.3 (30-36) % RDW 14.6 (11.6-14.8) % Plt Count 239 (150-400) X10^3/uL Neut % (Auto) 86.9 H (50-75) % Lymph % (Auto) 7.1 L (25-40) % [place] % (Auto) 5.8 (3-14) % Eos % (Auto) 0.1 L (2-4) % Baso % (Auto) 0.1 (0-2) % Neut # (Auto) 70386 H (9942-1595) /uL Lymph # (Auto) 2000 (5020-6813) /uL [place] # (Auto) 1600 H (0-900) /uL Eos # (Auto) 0 (0-450) /uL Baso # (Auto) 0 (0-100) /uL VBG pH 7.27 L (7.33-7.43) VBG pCO2 42.4 L (45-50) mmHg VBG pO2 46 H (35-45) mmHg VBG HCO3 20 L (24-28) mmol/L VBG Total CO2 19 L (24-29) mmol/L VBG O2 Saturation 75 (70-75) % VBG Base Excess -7.2 L (0-4) mmol/L FiO2 % 21 % % Sodium 148 H 154 H (137-145) mmol/L Potassium 4.4 3.6 (3.4-5.1) mmol/L Chloride 99 113 H (98-107) mmol/L Carbon Dioxide 18 L 12 L (22-32) mmol/L BUN 111 H* 104 H (7-17) mg/dL Creatinine 2.91 H 2.73 H (0.52-1.04) mg/dL Estimated GFR 21 L 23 L (>60) mL/min BUN/Creatinine Ratio 38.1 H 38.1 H (6-22) Glucose 1155 H* 905 H* (70-100) mg/dL Lactate 2.4 H 1.8 (0.7-2.1) mmol/L Calcium 9.9 9.1 (8.4-10.2) mg/dL Total Bilirubin 0.7 (0.2-1.3) mg/dL AST 31 (14-36) IU/L ALT 29 (<35) IU/L Alkaline Phosphatase 134 H (38-126) U/L Total Creatine Kinase 336 H (30-135) U/L Troponin I 0.013 (0.01-0.034) ng/mL Total Protein 9.2 H (6.3-8.2) g/dL Albumin 5.1 H (3.5-5.0) g/dL Globulin 4.1 (1.7-4.1) g/dL Albumin/Globulin Ratio 1.2 (1.0-2.8) Lipase 83 (23-300) U/L Ketones 10.2 H (<0.27) mmol/L 06/29/24 06/29/24 06/29/24 Range/Units 08:09 09:11 10:11 WBC (4.5-11.0) X10^3/uL RBC (4.0-5.2) X10^6/uL Hgb (12.0-16.0) g/dL Hct (36-46) % MCV (80-100) fL MCH (26-34) PG MCHC (30-36) % RDW (11.6-14.8) % Plt Count (150-400) X10^3/uL Neut % (Auto) (50-75) % Lymph % (Auto) (25-40) % [place] % (Auto) (3-14) % Eos % (Auto) (2-4) % Baso % (Auto) (0-2) % Neut # (Auto) (7641-7443) /uL Lymph # (Auto) (7733-8495) /uL [place] # (Auto) (0-900) /uL Eos # (Auto) (0-450) /uL Baso # (Auto) (0-100) /uL VBG pH 7.23 L (7.33-7.43) VBG pCO2 46.1 (45-50) mmHg VBG pO2 44 (35-45) mmHg VBG HCO3 19 L (24-28) mmol/L VBG Total CO2 19 L (24-29) mmol/L VBG O2 Saturation 70 (70-75) % VBG Base Excess -8.3 L (0-4) mmol/L FiO2 % % Sodium 157 H 154 H (137-145) mmol/L Potassium 3.2 L 3.1 L (3.4-5.1) mmol/L Chloride 120 H 118 H (98-107) mmol/L Carbon Dioxide 16 L 21 L (22-32) mmol/L BUN 98 H 93 H (7-17) mg/dL Creatinine 2.05 H 2.06 H (0.52-1.04) mg/dL Estimated GFR 32 L 32 L (>60) mL/min BUN/Creatinine Ratio 47.8 H 45.1 H (6-22) Glucose 724 H* 780 H* (70-100) mg/dL Lactate (0.7-2.1) mmol/L Calcium 8.7 8.6 (8.4-10.2) mg/dL Total Bilirubin (0.2-1.3) mg/dL AST (14-36) IU/L ALT (<35) IU/L Alkaline Phosphatase (38-126) U/L Total Creatine Kinase (30-135) U/L Troponin I (0.01-0.034) ng/mL Total Protein (6.3-8.2) g/dL Albumin (3.5-5.0) g/dL Globulin (1.7-4.1) g/dL Albumin/Globulin Ratio (1.0-2.8) Lipase (23-300) U/L Ketones (<0.27) mmol/L 06/29/24 06/29/24 Range/Units 10:13 11:03 WBC (4.5-11.0) X10^3/uL RBC (4.0-5.2) X10^6/uL Hgb (12.0-16.0) g/dL Hct (36-46) % MCV (80-100) fL MCH (26-34) PG MCHC (30-36) % RDW (11.6-14.8) % Plt Count (150-400) X10^3/uL Neut % (Auto) (50-75) % Lymph % (Auto) (25-40) % [place] % (Auto) (3-14) % Eos % (Auto) (2-4) % Baso % (Auto) (0-2) % Neut # (Auto) (7221-6234) /uL Lymph # (Auto) (3623-8355) /uL [place] # (Auto) (0-900) /uL Eos # (Auto) (0-450) /uL Baso # (Auto) (0-100) /uL VBG pH 7.37 (7.33-7.43) VBG pCO2 35.0 L (45-50) mmHg VBG pO2 52 H (35-45) mmHg VBG HCO3 20 L (24-28) mmol/L VBG Total CO2 20 L (24-29) mmol/L VBG O2 Saturation 86 H (70-75) % VBG Base Excess -4.2 L (0-4) mmol/L FiO2 % % Sodium (137-145) mmol/L Potassium (3.4-5.1) mmol/L Chloride (98-107) mmol/L Carbon Dioxide (22-32) mmol/L BUN (7-17) mg/dL Creatinine (0.52-1.04) mg/dL Estimated GFR (>60) mL/min BUN/Creatinine Ratio (6-22) Glucose 709 H* (70-100) mg/dL Lactate (0.7-2.1) mmol/L Calcium (8.4-10.2) mg/dL Total Bilirubin (0.2-1.3) mg/dL AST (14-36) IU/L ALT (<35) IU/L Alkaline Phosphatase (38-126) U/L Total Creatine Kinase (30-135) U/L Troponin I (0.01-0.034) ng/mL Total Protein (6.3-8.2) g/dL Albumin (3.5-5.0) g/dL Globulin (1.7-4.1) g/dL Albumin/Globulin Ratio (1.0-2.8) Lipase (23-300) U/L Ketones (<0.27) mmol/L MDM Narrative Medical decision making narrative: MDM CC: Abdominal pain elevated glucose Complicating co-morbidities: Insulin-dependent diabetes multiple pancreatic surgery Corroborating data: [ ] Data collected from: [ ] Medical records reviewed: Previous admission for hyperglycemia Differential considered: [ ] Exam documented above, pertinent findings include: Sleepy but arousable, diffuse abdominal pain no significant distention Lab Test results independently reviewed as above. Pertinent findings: Glucose 1155 Lactate 2.4 CBC shows leukocytosis of 27 hemoglobin 18.9 hematocrit 60.4 CMP sodium 148 potassium 4.4 chloride 99 carbon dioxide 18 BUN 11 creatinine2.9 Bilirubin 0.7 AST 31 ALT 29 alk-phos 134 CPK 336 Independently reviewed EKG as above Imaging studies independently reviewed: Consultations: [ ] Treatments: IV fluids insulin drip Re-evaluations: [ ] Discussion: Patient 33-year-old female history of insulin-dependent diabetes pancreatitis hyperglycemia presenting today with abdominal pain nausea vomiting. Is found today again to be hyperglycemic dehydrated. She has glucose of 1155 she has a elevated creatinine of 2 point 9. She was hemoconcentrated with a hemoglobin of 18 hematocrit 60. Along with leukocytosis. Blood cultures are pending he was given fluids and antibiotics empirically. Patient signed out to Dr. Yost <Kev Yost MD - Last Filed: 07/02/24 19:50> Lab Data Labs: Lab Results 06/29/24 06/29/24 06/29/24 Range/Units 05:44 05:57 07:49 WBC 27.7 H (4.5-11.0) X10^3/uL RBC 6.44 H (4.0-5.2) X10^6/uL Hgb 18.9 H (12.0-16.0) g/dL Hct 60.4 H* (36-46) % MCV 93.8 (80-100) fL MCH 29.4 (26-34) PG MCHC 31.3 (30-36) % RDW 14.6 (11.6-14.8) % Plt Count 239 (150-400) X10^3/uL Neut % (Auto) 86.9 H (50-75) % Lymph % (Auto) 7.1 L (25-40) % [place] % (Auto) 5.8 (3-14) % Eos % (Auto) 0.1 L (2-4) % Baso % (Auto) 0.1 (0-2) % Neut # (Auto) 92263 H (8102-5911) /uL Lymph # (Auto) 2000 (5028-1078) /uL [place] # (Auto) 1600 H (0-900) /uL Eos # (Auto) 0 (0-450) /uL Baso # (Auto) 0 (0-100) /uL VBG pH 7.27 L (7.33-7.43) VBG pCO2 42.4 L (45-50) mmHg VBG pO2 46 H (35-45) mmHg VBG HCO3 20 L (24-28) mmol/L VBG Total CO2 19 L (24-29) mmol/L VBG O2 Saturation 75 (70-75) % VBG Base Excess -7.2 L (0-4) mmol/L FiO2 % 21 % % Sodium 148 H 154 H (137-145) mmol/L Potassium 4.4 3.6 (3.4-5.1) mmol/L Chloride 99 113 H (98-107) mmol/L Carbon Dioxide 18 L 12 L (22-32) mmol/L BUN 111 H* 104 H (7-17) mg/dL Creatinine 2.91 H 2.73 H (0.52-1.04) mg/dL Estimated GFR 21 L 23 L (>60) mL/min BUN/Creatinine Ratio 38.1 H 38.1 H (6-22) Glucose 1155 H* 905 H* (70-100) mg/dL Lactate 2.4 H 1.8 (0.7-2.1) mmol/L Calcium 9.9 9.1 (8.4-10.2) mg/dL Total Bilirubin 0.7 (0.2-1.3) mg/dL AST 31 (14-36) IU/L ALT 29 (<35) IU/L Alkaline Phosphatase 134 H (38-126) U/L Total Creatine Kinase 336 H (30-135) U/L Troponin I 0.013 (0.01-0.034) ng/mL Total Protein 9.2 H (6.3-8.2) g/dL Albumin 5.1 H (3.5-5.0) g/dL Globulin 4.1 (1.7-4.1) g/dL Albumin/Globulin Ratio 1.2 (1.0-2.8) Lipase 83 (23-300) U/L Ketones 10.2 H (<0.27) mmol/L 06/29/24 06/29/24 06/29/24 Range/Units 08:09 09:11 10:11 WBC (4.5-11.0) X10^3/uL RBC (4.0-5.2) X10^6/uL Hgb (12.0-16.0) g/dL Hct (36-46) % MCV (80-100) fL MCH (26-34) PG MCHC (30-36) % RDW (11.6-14.8) % Plt Count (150-400) X10^3/uL Neut % (Auto) (50-75) % Lymph % (Auto) (25-40) % [place] % (Auto) (3-14) % Eos % (Auto) (2-4) % Baso % (Auto) (0-2) % Neut # (Auto) (1716-5065) /uL Lymph # (Auto) (4811-9535) /uL [place] # (Auto) (0-900) /uL Eos # (Auto) (0-450) /uL Baso # (Auto) (0-100) /uL VBG pH 7.23 L (7.33-7.43) VBG pCO2 46.1 (45-50) mmHg VBG pO2 44 (35-45) mmHg VBG HCO3 19 L (24-28) mmol/L VBG Total CO2 19 L (24-29) mmol/L VBG O2 Saturation 70 (70-75) % VBG Base Excess -8.3 L (0-4) mmol/L FiO2 % % Sodium 157 H 154 H (137-145) mmol/L Potassium 3.2 L 3.1 L (3.4-5.1) mmol/L Chloride 120 H 118 H (98-107) mmol/L Carbon Dioxide 16 L 21 L (22-32) mmol/L BUN 98 H 93 H (7-17) mg/dL Creatinine 2.05 H 2.06 H (0.52-1.04) mg/dL Estimated GFR 32 L 32 L (>60) mL/min BUN/Creatinine Ratio 47.8 H 45.1 H (6-22) Glucose 724 H* 780 H* (70-100) mg/dL Lactate (0.7-2.1) mmol/L Calcium 8.7 8.6 (8.4-10.2) mg/dL Total Bilirubin (0.2-1.3) mg/dL AST (14-36) IU/L ALT (<35) IU/L Alkaline Phosphatase (38-126) U/L Total Creatine Kinase (30-135) U/L Troponin I (0.01-0.034) ng/mL Total Protein (6.3-8.2) g/dL Albumin (3.5-5.0) g/dL Globulin (1.7-4.1) g/dL Albumin/Globulin Ratio (1.0-2.8) Lipase (23-300) U/L Ketones (<0.27) mmol/L 06/29/24 06/29/24 Range/Units 10:13 11:03 WBC (4.5-11.0) X10^3/uL RBC (4.0-5.2) X10^6/uL Hgb (12.0-16.0) g/dL Hct (36-46) % MCV (80-100) fL MCH (26-34) PG MCHC (30-36) % RDW (11.6-14.8) % Plt Count (150-400) X10^3/uL Neut % (Auto) (50-75) % Lymph % (Auto) (25-40) % [place] % (Auto) (3-14) % Eos % (Auto) (2-4) % Baso % (Auto) (0-2) % Neut # (Auto) (8127-5321) /uL Lymph # (Auto) (1002-8858) /uL [place] # (Auto) (0-900) /uL Eos # (Auto) (0-450) /uL Baso # (Auto) (0-100) /uL VBG pH 7.37 (7.33-7.43) VBG pCO2 35.0 L (45-50) mmHg VBG pO2 52 H (35-45) mmHg VBG HCO3 20 L (24-28) mmol/L VBG Total CO2 20 L (24-29) mmol/L VBG O2 Saturation 86 H (70-75) % VBG Base Excess -4.2 L (0-4) mmol/L FiO2 % % Sodium (137-145) mmol/L Potassium (3.4-5.1) mmol/L Chloride (98-107) mmol/L Carbon Dioxide (22-32) mmol/L BUN (7-17) mg/dL Creatinine (0.52-1.04) mg/dL Estimated GFR (>60) mL/min BUN/Creatinine Ratio (6-22) Glucose 709 H* (70-100) mg/dL Lactate (0.7-2.1) mmol/L Calcium (8.4-10.2) mg/dL Total Bilirubin (0.2-1.3) mg/dL AST (14-36) IU/L ALT (<35) IU/L Alkaline Phosphatase (38-126) U/L Total Creatine Kinase (30-135) U/L Troponin I (0.01-0.034) ng/mL Total Protein (6.3-8.2) g/dL Albumin (3.5-5.0) g/dL Globulin (1.7-4.1) g/dL Albumin/Globulin Ratio (1.0-2.8) Lipase (23-300) U/L Ketones (<0.27) mmol/L Imaging Data CT scan - abdomen/pelvis: Radiologist's Impression: [address] [address] [address] Scan Report Signed Patient: Nathan Garcia MR#: [id number] : 1990 Acct:[id number] Age/Sex: 33 / F Date of Service: 06/29/24 Loc: ED Accession Number: [id number] Procedure: CT abdomen pelvis wo con Ordering Provider: Dionne Rubio D.O. PROCEDURE: CT ABDOMEN PELVIS WO CON INDICATIONS: n/v pancreatitis many surgeries TECHNIQUE: Axial sections were acquired from the lung bases to the pubic symphysis. Coronal and sagittal reformats were performed. For radiation dose reduction, the following was used: automated exposure control, adjustment of mA and/or kV according to patient size. COMPARISON: [facility], CT, CT ABDOMEN PELVIS WO CON, 02/14/2022, 11:44. FINDINGS: Image quality: Diagnostic. Lower Chest: No significant findings. URINARY: Right Kidney: No stones or hydronephrosis. Right Ureter: No hydroureter. Left Kidney: No stones or hydronephrosis. Left Ureter: No hydroureter. Bladder: Normal wall thickness. No stones. ABDOMEN: Liver: No contour-deforming solid mass. Mild diffuse hepatic steatosis. Gallbladder: Absent Biliary ducts: No biliary dilation. Pancreas: No ductal dilation. Single pancreatic calcification, unchanged. Spleen: Size is within normal limits. Adrenal Glands: No adrenal nodules. Stomach and Bowel: Normal colonic caliber, without significant wall thickening. Peritoneum: No abnormal intraperitoneal fluid. No free air. Ventral Wall: No hernia. Abdominal Nodes: No enlarged retroperitoneal or mesenteric lymph nodes. Vessels: Aorta and inferior vena cava are normal in size. PELVIS: Pelvic Organs: Unremarkable. Pelvic Nodes: Unremarkable. Miscellaneous: No inguinal hernias are seen. Bones: Unremarkable. IMPRESSION: 1. No renal stones, ureteral stones, or hydronephrosis. 2. No acute abdominal process noted. 3. Remote cholecystectomy. Dictated by: Zelalem Mariano M.D. on 06/29/2024 at 8:02 Approved by: Zelalem Mariano M.D. on 06/29/2024 at 8:05 [facility] Narrative Medical decision making narrative: MDM CC: Abdominal pain elevated glucose Complicating co-morbidities: Insulin-dependent diabetes multiple pancreatic surgery Medical records reviewed: Previous admission for hyperglycemia Differential considered: DKA sepsis pancreatitis Exam documented above, pertinent findings include: Sleepy but arousable, diffuse abdominal pain no significant distention Lab Test results independently reviewed as above. Pertinent findings: Glucose 1155 Lactate 2.4 CBC shows leukocytosis of 27 hemoglobin 18.9 hematocrit 60.4 CMP sodium 148 potassium 4.4 chloride 99 carbon dioxide 18 BUN 11 creatinine2.9 Bilirubin 0.7 AST 31 ALT 29 alk-phos 134 CPK 336 Anion gap 31 Independently reviewed EKG as above sinus tachycardia rate 115 Imaging studies independently reviewed: CT abdomen pelvis no acute finding Consultations: 10:07 a.m.. 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 They have a bed available now. We will call ALS. Recommends repeating VBG. If pCO2 increases then recommend starting BiPAP, currently patient is protecting airway., he does agree to start D5W for hypernatremia, repeat VBG is reassuring. PCO2 has trended down, pCO2 of 35 Treatments: IV fluids insulin drip Zosyn Re-evaluations: 8:00 a.m.. Patient is awake. She does understand she needs admission or transfer pending results of the labs. 10:00 a.m.. Patient is still awake alert protecting airway. She does understand she will be transferred to [facility] for higher level of care. Discussion: Patient 33-year-old female history of insulin-dependent diabetes pancreatitis hyperglycemia presenting today with abdominal pain nausea vomiting. Is found today again to be hyperglycemic dehydrated. She has glucose of 1155 she has a elevated creatinine of 2 point 9. She was hemoconcentrated with a hemoglobin of 18 hematocrit 60. Along with leukocytosis. Blood cultures are pending he was given fluids and antibiotics empirically. 8:40 a.m.. Patient will likely need to be transferred to ICU for higher level of care, we do not have Nephrology here. Patient signed out to Dr. Yost June 29, 2024 at 7:00 a.m.. Ritika: ?sign out from Dr Rubio, patient will need admission versus transfer. Patient in DKA. CT imaging pending. Patient has received antibiotics IV fluids is on DKA protocol. Anion gap 31. Zosyn has been started. Critical Care Time <Kev Yost MD - Last Filed: 07/02/24 19:50> Critical Care Time Attestation: Critical Care Time 35 minutes: Critical care time is separate from other billable procedures. This critical care time includes consultation with family and other consulting doctors, review of records, and interpretation of data from labs, EKGs, imaging, etc. Discharge Plan Departure Patient Disposition: [facility] Clinical Impression: Acute hypernatremia Diabetes mellitus with ketoacidosis Qualifiers: Diabetes mellitus type: type 1 Diabetes mellitus complication detail: without coma Qualified Code(s): E10.10 - Type 1 diabetes mellitus with ketoacidosis without coma Prescriptions: No Action No Known Home Medications Referrals: Deann Woo MD [Primary Care Provider] -
[2024-06-29 06:25] LABS: Blood Urea Nitrogen 111 mg/dL (7-17); Glucose 1155 mg/dL (70-100)
[2024-06-29 06:37] LABS: Creatine Kinase 336 U/L (30-135)
--- NOTE | 2024-06-29 06:37 | PC.NURSE ---
Phlebotomy at bedside for 2nd blood culture draw.
[2024-06-29 06:49] LABS: Troponin I 0.013 ng/mL (0.01-0.034)
[2024-06-29 06:50] LABS: Ketones (Beta-Hydroxybutyrate) 10.2 mmol/L (<0.27)
[2024-06-29] MEDS: SODIUM CHLORIDE 0.9% 2,177.25 ML 725.75 ML IV (06:56)
[2024-06-29] MEDS: INSULIN DRIP PREMIX 100 UNIT/100 ML PLAST..BAG 7.258 UNIT IV (06:58)
[2024-06-29] MEDS: PIPERACILLIN/TAZO 4.5 GM in SODIUM CHLORIDE 0.9% 100 ML IV (06:59)
--- NOTE | 2024-06-29 07:21 | PC.NURSE ---
Assumed care of pt at 0700. Pt resting comfortably in bed at this time.
[2024-06-29 07:39] LABS: Reflexed Lactate in 2 Hours Y
[2024-06-29 08:13] LABS: Base Excess VBG -8.3 mmol/L (0-4); HCO3 VBG 19 mmol/L (24-28); Oxygen Saturation VBG 70 % (70-75); PCO2 VBG 46.1 mmHg (45-50); PO2 VBG 44 mmHg (35-45); Total CO2 VBG 19 mmol/L (24-29); pH VBG 7.23 (7.33-7.43)
--- NOTE | 2024-06-29 08:16 | EKG_ITS ---
[place] [id number] [place] [id number] Test Date: 2024-06-29 Pat Name: aNthan Garcia Department: [facility] Room: Gender: Female Clinical Research Administrator: BASILIA : 1990 Requested By: Order Number: [id number] Reading MD: Joel Tran Measurements Intervals [place] Rate: 115 P: 79 VA: 138 QRS: 81 QRSD: 96 T: -61 QT: 346 QTc: 478 Interpretive Statements Sinus tachycardia Minimal voltage criteria for LVH, may be normal variant ( Hornbeck product ) T wave abnormality, consider inferior ischemia Electronically Signed On 06-30-2024 23:44:59 PST by Joel Tran
[2024-06-29 08:20] LABS: BUN Creatinine Ratio 38.1 (6-22); Blood Urea Nitrogen 104 mg/dL (7-17); Calcium 9.1 mg/dL (8.4-10.2); Carbon Dioxide 12 mmol/L (22-32); Chloride 113 mmol/L (98-107); Estimated Glomerular Filt Rate 23 mL/min (>60); HEMOLYSIS < 15 (0-50); Lactate 2HR (Lactic Acid Rflx) 1.8 mmol/L (0.7-2.1); Potassium 3.6 mmol/L (3.4-5.1); Sodium 154 mmol/L (137-145)
[2024-06-29 08:35] LABS: Glucose 905 mg/dL (70-100)
[2024-06-29] MEDS: MORPHINE 2 MG/ML INJ IV (08:46)
[2024-06-29] MEDS: ONDANSETRON 4 MG/2 ML INJ IV (08:47)
--- NOTE | 2024-06-29 08:55 | PC.NURSE ---
pt c/o 03/[address] hart to order pain meds and nausea meds. pt repositioned. a&ox4.
[2024-06-29 09:43] LABS: BUN Creatinine Ratio 47.8 (6-22); Blood Urea Nitrogen 98 mg/dL (7-17); Calcium 8.7 mg/dL (8.4-10.2); Carbon Dioxide 16 mmol/L (22-32); Chloride 120 mmol/L (98-107); Estimated Glomerular Filt Rate 32 mL/min (>60); HEMOLYSIS 33 (0-50); Potassium 3.2 mmol/L (3.4-5.1); Sodium 157 mmol/L (137-145)
[2024-06-29] MEDS: WATER IV (09:50)
[2024-06-29] MEDS: DEXTROSE 5% IV (09:50)
[2024-06-29 09:53] LABS: Glucose 724 mg/dL (70-100)
[2024-06-29 10:16] LABS: Base Excess VBG -4.2 mmol/L (0-4); HCO3 VBG 20 mmol/L (24-28); Oxygen Saturation VBG 86 % (70-75); PO2 VBG 52 mmHg (35-45); Total CO2 VBG 20 mmol/L (24-29); pH VBG 7.37 (7.33-7.43)
--- NOTE | 2024-06-29 10:17 | PC.NURSE ---
Pt resting comfortably in bed at this time. Responds appropriately to questions and easily arousable.
[2024-06-29 10:26] LABS: BUN Creatinine Ratio 45.1 (6-22); Blood Urea Nitrogen 93 mg/dL (7-17); Calcium 8.6 mg/dL (8.4-10.2); Carbon Dioxide 21 mmol/L (22-32); Chloride 118 mmol/L (98-107); Estimated Glomerular Filt Rate 32 mL/min (>60); HEMOLYSIS < 15 (0-50); Potassium 3.1 mmol/L (3.4-5.1); Sodium 154 mmol/L (137-145)
[2024-06-29 10:41] LABS: Glucose 780 mg/dL (70-100)
--- NOTE | 2024-06-29 10:42 | PC.NURSE ---
pt becoming confused. States that she does not know where she is, restless and pulling at cords. Pt states that she is having visual hallucinations. Dr Yost notifed of pt status and hx.
[2024-06-29] MEDS: LORazepam 2 MG/ML INJ 1 MG IV (10:56)
[2024-06-29 11:48] LABS: Glucose 709 mg/dL (70-100)
--- NOTE | 2024-06-29 12:01 | PC.NURSE ---
SKILLED LABOR Note: Transfer started at 0828. Dx: DKA, Acute Renal Injury. Insulin drip. [facility], not waitlisted, reqested we call back in 3-4 hours for possible placement. [facility], not waitlisted, requested to call back after 1600 today for possible placement. [facility], waitlisted, hospital status boarding 40+. [facility], waitlisted, screening form faxed. Accepted at by Dr. Galloway. Bed assignment given at 1050, L9 CCU. RN call for report [phone], ext [phone] or ext [phone]. Arranged ALS transport with [facility], pickup time 1130. called with ETA of 1400. Called [facility] [place] and canceled patient off waitlist.
== END 2024-06-29 11:49 | disposition short-term general hospital (02) ==
PROVIDERS: Emergency Medicine; Emergency Provider Emergency Medicine; PCP Family Medicine
DX: E10.10 Type 1 diabetes mellitus with ketoacidosis without coma (principal); E87.0 Hyperosmolality and hypernatremia; Z79.4 Long term (current) use of insulin; R11.2 Nausea with vomiting, unspecified
CPT/HCPCS: 36415; 74176; 80048; 80053; 82009; 82550; 82805; 82947; 83605; 83690; 84484; 85025; 87040; 93005; 96365; 96366; 96367; 96375; 99283; 99291; J2060; J2270; J2405; J2543